=== PATIENT | male | born 1940 | race Caucasian/White ===

== ENCOUNTER 2024-07-20 23:41 | Inpatient (IN) | payer OTHER, SELFPAY ==
[2024-07-20 21:27] VITALS: BP 126/58
[2024-07-20 21:42] LABS: % Basophils 0.5 % (0-2); % Eosinophils 0.8 % (0-6); % Immature Granulocytes 0.3 % (0-0.5); % Lymphocytes 7.5 % (20.5-51.1); % Monocytes 3.3 % (1.7-9.3); % Neutrophils 87.6 % (42.2-75.2); Absolute Basophils 0.1 10^3/uL (0-0.2); Absolute Eosinophils 0.1 10^3/uL (0-0.7); Absolute Lymphocytes 0.9 10^3/uL (1.2-3.4); Absolute Monocytes 0.4 10^3/uL (0.1-0.6); Absolute Neutrophils 10.4 10^3/uL (1.4-6.5); Hematocrit 37.9 % (39.0-52.0); Hemoglobin 12.7 g/dL (13.0-18.0); Mean Corp Hgb Conc. 33.5 g/dL (33.0-37.0); Mean Corpuscular Hgb 31.7 pg (27.0-31.0); Mean Corpuscular Volume 94.5 fL (80.0-94.0); Mean Platelet Volume 9.1 fL (7.4-10.4); Nucleated Red Blood Cells % 0 % (-); Platelet Count 252 10^3/uL (130-400); Red Blood Cell Count 4.01 10^6/uL (4.70-6.10); Red Cell Dist. Width 13.4 % (11.5-14.5); Urine Albumin 3+ (Neg - Trace); Urine Bilirubin Negative (Negative); Urine Character Cloudy (Clear); Urine Color Yellow; Urine Glucose Negative (Negative); Urine Ketone Negative (Negative); Urine Leukocyte 3+ (Negative); Urine Nitrite Positive (Negative); Urine Occult Blood 4+ (Negative); Urine Urobilinogen Negative (Neg - 1+); White Blood Cell Count 11.9 10^3/uL (4.8-10.8)
[2024-07-20 21:49] LABS: Urine Squamous Cell 0-2 /LPF (Few)
[2024-07-20 21:50] LABS: Urine Bacteria Many (Negative); Urine White Cell 80-90 /HPF (0-5)
[2024-07-20] MEDS: TYLENOL/FEVERALL 650 MG RECTAL (21:52)
[2024-07-20 21:55] LABS: Lactic Acid 1.5 mmol/L (0.7-2.0)
[2024-07-20 21:56] LABS: COVID-19 Antigen Negative (Negative)
[2024-07-20 22:00] VITALS: BP 130/65
[2024-07-20 22:07] LABS: ALT (SGPT) 38 U/L (0-50); AST (SGOT) 43 U/L (17-59); Alkaline Phosphatase 92 U/L (38-126); Blood Urea Nitrogen 55 mg/dl (9-20); Calcium 10.6 mg/dl (8.4-10.2); Carbon Dioxide 25 mmol/L (22-30); Chloride 120 mmol/L (98-107); Glucose 165 mg/dl (70-99); Potassium 4.2 mmol/L (3.5-5.1); Sodium 155 mmol/L (135-145); Total Bilirubin 0.6 mg/dl (0.2-1.3); Total Protein 7.3 g/dl (6.3-8.2); eGFR 42.75
[2024-07-20] MEDS: NSS 1000 IV (22:10)
[2024-07-20] MEDS: ROCEPHIN 1000 MG IV (22:38)
--- NOTE | 2024-07-20 22:44 | ED.GENMED ---
History of Present Illness
General
Chief Complaint: Fever
Source: patient
Exam Limitations: none
Time Seen by Provider: 07/20/24 22:03
History of Present Illness
History of Present Illness:
84-year-old male from nursing facility who states the patient was found to have a fever and to be less responsive than usual. Usually he will respond to verbal stimuli but they were forced to use painful stimuli today. He has a history of dementia
and cannot provide any valuable history. Noted to have a temperature of 102.7 on arrival.
Phy Exam
Physical Exam
Physical Exam:
General: No acute respiratory distress
HEENT normocephalic mucosa dry
Heart: Regular rate and rhythm
Lungs: Clear no obvious wheeze
Abdomen soft nontender
Extremities: No cyanosis
Or edema
Course
Orders/Labs/Results
Orders:
Orders
07/20/24 21:31
Electrocardiogram (*1) Urgent
Reason for Study: Other
Other Reason for Exam: fever
EKG- Treatment ONCE
07/20/24 21:34
COVID-19 Antigen Urgent
Source: Nasal Swab
Complete Blood Count/With Diff Urgent
Comprehensive Metabolic Panel Urgent
Lactic Acid Urgent
Urinalysis Reflex To Culture Urgent
Date Specimen was Collected: 07/20/24
Time Specimen was Collected: 21:31
Urine Microscopic Reflex Cult Urgent
Blood Culture Urgent
SHAY Source: Blood/Venous
Specimen Description:
Influenza A+B Rapid Molecular Urgent
SHAY Source: Nasal Swab
Specimen Description:
Urine Culture Urgent
SHAY Source: U
Specimen Description:
Date Specimen was Collected: 07/20/24
Time Specimen was Collected: 21:31
07/20/24 21:45
Blood Culture Urgent
SHAY Source: Blood/Venous
Specimen Description:
07/20/24 21:51
Acetaminophen [Tylenol/Feverall] 650 mg .ROUTE .STK-MED ONE
07/20/24 21:52
Acetaminophen [Tylenol/Feverall] 650 mg RECTAL NOW STA
07/20/24 22:08
0.9% Sodium Chloride 1000 ml [Nss] 1,000 ml IV BOLUS
CR Chest Portable - 1 View Urgent
Comment:
Reason For Exam: fever
Reason Study Needs to be Portable: Patient Unstable
07/20/24 22:29
CefTRIAXone [Rocephin] 1,000 mg IV NOW STA
Abnormal Lab Results
07/20/24
21:34
WBC 11.9 H 10^3/uL
(4.8-10.8)
RBC 4.01 L 10^6/uL
(4.70-6.10)
Hgb 12.7 L g/dL
(13.0-18.0)
Hct 37.9 L %
(39.0-52.0)
MCV 94.5 H fL
(80.0-94.0)
MCH 31.7 H pg
(27.0-31.0)
Absolute Neuts (auto) 10.4 H 10^3/uL
(1.4-6.5)
Absolute Lymphs (auto) 0.9 L 10^3/uL
(1.2-3.4)
Neutrophils % 87.6 H %
(42.2-75.2)
Lymphocytes % 7.5 L %
(20.5-51.1)
Sodium 155 H mmol/L
(135-145)
Chloride 120 H mmol/L
(98-107)
BUN 55 H mg/dl
(9-20)
Creatinine 1.6 H mg/dL
(0.7-1.3)
Glucose 165 H mg/dl
(70-99)
Calcium 10.6 H mg/dl
(8.4-10.2)
Ur Occult Blood Reflex 4+ A
(Negative)
Urine Nitrite (Reflex) Positive A
(Negative)
Leukocyte Esterase Rfl 3+ A
(Negative)
Urine RBC 3-6 A /HPF
(0-2)
Urine WBC (Reflex) 80-90 A /HPF
(0-5)
Urine Bacteria (Reflex) Many A
(Negative)
Urine Albumin (Reflex) 3+ A
(Neg - Trace)
07/20/24 21:34
07/20/24 21:34
Vital Signs
Initial and Last Documented VS:
Initial Vital Signs
Temp Pulse Resp BP Pulse Ox
102.7 F H 83 16 126/58 95
07/20/24 21:27 07/20/24 21:27 07/20/24 21:27 07/20/24 21:27 07/20/24 21:27
Last Documented Vital Signs
Temp Pulse Resp BP Pulse Ox
102.7 F H 79 16 130/65 96
07/20/24 21:27 07/20/24 22:00 07/20/24 22:09 07/20/24 22:00 07/20/24 22:00
MDM/Problems Addressed
Differential Diagnosis Includes:
Fever. Check for pneumonia, COVID, flu, UTI. No localizing findings on exam.
*Critical Care Note
Total Time (30-74mins, 75-104mins- exclusive of procedures): Not Applicable
Update Note
Update Note:
Workup shows white blood cell count slightly elevated. He has a creatinine of 1.6. No priors to compare to on our system. Straight cath urine suspicious for UTI. His sodium is 155 I suspect hemoconcentration. Fluids ordered Rocephin ordered.
Will admit to hospital
ED Attending Note
-
Portions of this chart may have been created with voice recognition software.� Occasional wrong word or��sound alike� substitutions may have occurred due to the inherent limitations of voice recognition software.
Discharge Plan
Departure
Patient Disposition: Admit
Date of Disposition: 07/20/24
Time of Disposition: 22:46
Presentation/result/management discussed w/ accepting MD/DO: Hospitalist
Discharge Problem:
Acute UTI, Fever
Referrals:
Michel Aceves MD [Primary Care Provider] -
Austin Allen MD [Family Provider] -
Interventions
Interventions:
*Risk Screen - Suicide Last Done: 07/20/24 21:32
*General Assessment Last Done: 07/20/24 21:32
*Neglect/Abuse Screening Last Done: 07/20/24 21:32
*ED- Fall Risk Assessment Last Done: 07/20/24 21:32
*ED COVID-19 Vaccine History Last Done: 07/20/24 21:32
ED- Neurological Assessment Last Done: 07/20/24 21:32
ED-Skin Assessment Last Done: 07/20/24 21:32
Discharge Date and Time
Print Language: Algerian
[2024-07-20 23:00] VITALS: BP 133/58
--- NOTE | 2024-07-20 23:21 | HPS.HSE ---
Family Physician
-
Family Physician: Austin Allen MD
Chief Complaint
-
Fever
History of Present Illness
This is a n 84-year-old male with history of dementia, coming in from [facility] where patient was found to have a fever and to be less responsive than usual.
Usually he will respond to verbal stimuli but they were forced to use painful stimuli today. Noted to have a temperature of 102.7 on arrival.
Patient unable to provide any history. He is lethargic and hypoactive. Reacts to painful stimuli and loud voice only.
Here in the emergency department he was febrile to 102.7, blood pressure was 130/65 with a pulse of 79 satting 96% on room air. Chest x-ray was clear. Lactic acid was negative. He had a white count of 11.9 hemoglobin of 12.7 and platelet of 252.
Electrolytes were notable for a sodium of 155 and chloride of 128 otherwise unremarkable. BUN and creatinine were elevated at 55 and 1.6 respectively. Glucose was normal. LFTs were unremarkable. UA was markedly positive.
Medical History
Past Medical History
Past Medical History: Reports Dementia
Past Surgical History: Reports Other
Social History
Unable to obtain full social history at this time due to: Dementia
Family History
Family History: Not pertinent
Allergies / Home Medications
Allergies reflects when Allergies were last updated in [employer].
Home Medications with original date entered in [employer]
Allergy/Medication List:
Allergies
Allergy/AdvReac Type Severity Reaction Status Date / Time
No Known Allergies Allergy Unverified 07/20/24 21:47
Home Medications
acetaminophen 325 mg tablet 650 mg PO Q4H PRN temp >100.4 07/20/24
aspirin 81 mg tablet,delayed release 81 mg PO DAILY 07/20/24
bisacodyl 10 mg rectal suppository 10 mg WI DAILY PRN if no result from MOM 07/20/24
buspirone 10 mg tablet 10 mg PO TID 07/20/24
carvedilol 3.125 mg tablet 3.125 mg PO BID 07/20/24
clopidogrel 75 mg tablet (Plavix) 75 mg PO DAILY 07/20/24
cyanocobalamin (vitamin B-12) 1,000 mcg tablet 1,000 mcg PO DAILY 07/20/24
donepezil 10 mg tablet 10 mg PO HS 07/20/24
famotidine 20 mg tablet 20 mg PO DAILY 07/20/24
losartan 25 mg tablet 25 mg PO DAILY 07/20/24
magnesium hydroxide 400 mg/5 mL oral suspension (Milk of Magnesia) 30 ml PO HS PRN if no BM in 3 days 07/20/24
memantine 5 mg tablet 5 mg PO BID 07/20/24
mirtazapine 7.5 mg tablet 7.5 mg PO HS 07/20/24
Review of Systems
-
Unable to obtain full review of systems at this time due to: Dementia
Physical Exam
Vital Signs
Vital Signs
Temp Pulse Resp BP Pulse Ox
102.7 F H 79 16 130/65 96
07/20/24 21:27 07/20/24 22:00 07/20/24 22:09 07/20/24 22:00 07/20/24 22:00
Physical Exam
General: No Apparent Distress
HEENT: NormoCephalic, Anicteric, Atraumatic and PERRLA (could not assess accomodation)
Respiratory: Clear
Cardiac: S1/S2 and Regular Rhythm
Breast: Deferred by me
GI: Soft, Non Tender and Non Distended
Rectal: Deferred by Provider
Genito-urinary: Deferred by me
Musculoskeletal: No Clubbing, No Cyanosis and No Edema
Skin: Warm
Neuro: Other (withdraws to painful stimuli and also to loud voice. Otherwise not-interactive. )
Hematologic/Lymphatic: No Lymphadenopathy
Laboratory Results
-
07/20/24 21:34
07/20/24 21:34
Laboratory Results
Lactic Acid 1.5 mmol/L (0.7-2.0) 07/20/24 21:34
Total Bilirubin 0.6 mg/dl (0.2-1.3) 07/20/24 21:34
AST 43 U/L (17-59) 07/20/24 21:34
ALT 38 U/L (0-50) 07/20/24 21:34
Alkaline Phosphatase 92 U/L (38-126) 07/20/24 21:34
Data Reviewed
-
Diagnostic Radiology: Image Personally Visualized and interpreted
Lab Data: Labs Reviewed by me
Old Records: Reviewed
Impression/Plan
-
IMPRESSION:
84 y.o with dementia presenting with fever and decreased MS (usually responds to voice but now only to painful stimuli). Fever to 102 and markedly + u/a. Dehydrated with na 155, Cr 1.6 and BUN 55. chest Xray looks clear. Sepsis without shock.
PLAN:
1. complicated uti with sepsis
- admit to med/surg
- blood cultures
- urine cultures
- IV ceftriaxone for now
- NPO for now except meds as tolerated
- cxr clear, will get ct a/p w/o contrast to rule out urinary stones/obstruction
2. Hypernatremia - Na 155, C 120. Free water deficit ~ 2 L (to Na 145), also quite hypovolemic. Suspect secondary to free water losses from dehydration and no access.
- s/p 1 L NS
- will continue with D5 1/2 NS at 150 ml/hr
- repeat Na in 6 hours
3. KAITLIN
- IV fluids as above
- holding losartan
4. CAD - will continue meds when orally able to tolerate
- continue aspirin/plvix
- continue carvedilol
5. Advanced dementia - continue meds when orally tolerated
- continue memantine, donepizil
- hold buspiron for now
- hold mirtazepine
DVT PPX - heparin sq
Code status - DNR
[2024-07-21] VITALS (11 sets, daily range): BP systolic 114–172; BP diastolic 57–90; BMI 17.9
[2024-07-21] MEDS: D5/0.45%NACL 1000 IV ×2 (00:39→14:56)
[2024-07-21] MEDS: FLUSH (NSS) 1 FLUSH IV (00:44)
[2024-07-21] MEDS: HEPARIN 5000 UNITS SC ×3 (00:48→16:46)
[2024-07-21] MEDS: FLEET MINERAL OIL ENEMA 133 ML RECTAL ×2 (01:06→11:55)
[2024-07-21] MEDS: TYLENOL/FEVERALL 650 MG RECTAL ×3 (03:37→22:48)
[2024-07-21 06:33] LABS: Calcium 9.4 mg/dl (8.4-10.2); Carbon Dioxide 25 mmol/L (22-30); Chloride 120 mmol/L (98-107); Glucose 224 mg/dl (70-99); Potassium 3.8 mmol/L (3.5-5.1); Sodium 154 mmol/L (135-145)
[2024-07-21 06:40] LABS: Hematocrit 29.7 % (39.0-52.0); Hemoglobin 9.8 g/dL (13.0-18.0); Mean Corpuscular Hgb 31.6 pg (27.0-31.0); Mean Corpuscular Volume 95.8 fL (80.0-94.0); Mean Platelet Volume 9.6 fL (7.4-10.4); Platelet Count 196 10^3/uL (130-400); Red Cell Dist. Width 13.5 % (11.5-14.5); White Blood Cell Count 10.1 10^3/uL (4.8-10.8)
[2024-07-21 06:45] LABS: Blood Urea Nitrogen 49 mg/dl (9-20); eGFR 50.18
[2024-07-21] MEDS: D5/0.45%NACL IV (07:56)
--- NOTE | 2024-07-21 08:11 | W.PN.HOSP.TC ---
Today's Communication/Plan
-
zosyn
IVF
enema
[employer]IVER
Assessment / Plan
Assessment / Plan
84yo M with advanced dementia, poorly verbal on baseline, CAD, HTN, insomnia brought from SNF with fever and lethargy, found stercoral colitis, LLL pneumonia and possible UTI
A/P:
#Fever, cannot reliably deferentiate betqween stercoral colitis, LLL CAP or UTI due to patient poorly verbal on baseline with advanced unspecified dementia, most likely sepsis on admission
COVID-19, Influenza PCR neg
check legionella and S.pmeumonia urinary Ag
Bcx pending
Ucx pending
Sputum Cx if possible
Zosyn
[employer] TR[employer]IVER
#Hypernatremia
#KAITLIN
most likely 2/2 dehydration
D5W and follow BMP
#Anemia
follow Hgb
Check stool for occult blood
anemia w/u
#Essential HTN
hold losartan with KAITLIN
#Constipation
most likely 2/2 dehydration
IVF
enema
#Non-obstructing nephrolithiasis
hydrate
DVT ppx hep
DNR/DNI as per admission paperwork
I have spent at least 55min reviewing chart, test results and providing direct patient care
Anticipated Discharge: > 48 hours
Subjective/Interval History
-
Date of Service: July 21, 2024
Objective Data
-
Labs:
Laboratory Results
07/20/24 07/21/24
21:34 05:42
WBC 11.9 H 10.1
Hgb 12.7 L 9.8 L D
Hct 37.9 L 29.7 L
Plt Count 252 196 D
Sodium 155 H 154 H
Potassium 4.2 3.8
Chloride 120 H 120 H
Carbon Dioxide 25 25
BUN 55 H 49 H
Creatinine 1.6 H 1.4 H
Glucose 165 H 224 H
Calcium 10.6 H 9.4
Total Bilirubin 0.6
AST 43
ALT 38
Alkaline Phosphatase 92
Vital Signs:
Vital Signs
Temp Pulse Resp BP Pulse Ox
100.3 F 73 16 129/65 98
07/21/24 01:18 07/21/24 01:30 07/21/24 02:18 07/21/24 05:00 07/21/24 07:00
Review of Systems
-
Unable to obtain full review of systems at this time due to: Dementia
Physical Exam
-
General: No Apparent Distress
Respiratory: Clear to Auscultation
Cardiac: Regular Rhythm
GI: Soft, Nontender and Nondistended
Musculoskeletal: No Clubbing, No Cyanosis and No Edema
Neuro: Awake, Alert and Other (mostly nonverbal. Responds to verbal stimuli)
Psych: Calm
[2024-07-21 08:14] LABS: Reticulocyte Count 0.8 % (0.4-2.8)
--- NOTE | 2024-07-21 08:25 | PTOTSP ---
Speech Language Pathology
Pt seen for cognitive-linguistic evaluation given concern for L facial droop. Severe cognitive-linguistic deficits noted. Pt nonverbal during evaluation with no attempts to answer questions. Following evaluation, RN notified SKI PATROL that was at
bedside and facial droop is baseline from CVA in the past. Therefore, will follow for dysphagia tx only.
Pt also seen for clinical bedside swallow evaluation. P.O. trials of puree and thin liquids provided. Poor prefeeding skills noted. Labial leakage on L noted with liquids. Attempted sip from straw, but pt biting down on straw. Provided tsp of
puree. Multiple swallows noted, most likely indicative of pharyngeal residue. Oral suctioning completed with diffuse oral residue suctioned by SKI PATROL.
Current alertness level and mentation do not support safe P.O. intake.
Recommend:
(1) Strict NPO
(2) Non-oral meds
(3) Oral care 4x/day with suctioning as needed
(4) Not appropriate for Aspiration Risk Hydration Protocol (ARHP)
(5) SKI PATROL to continue to follow
--- NOTE | 2024-07-21 08:35 | PHANOTE ---
Addendum entered by Theodora Montague 07/21/24 10:30:
CALLED [facility] FLOOR NURSE STATED SHE WAS TOO BUSY TO FAX HIS MEDICATION LIST OVER AND STATED HE CAME WITH THE PACKET BUT IT MISSING PAGES, NURSE STATED SHE WILL TRY IN AN HOUR TO FAX MEDICATION LIST
Original Note:
med rec note- called [facility] at [phone], nurse line was busy but left message with desk pens assembler to fax med list over for patient
[2024-07-21 08:51] LABS: Iron 27 ug/dl (49-181)
[2024-07-21 09:00] LABS: Percent Saturation 13 % (20-50); Total Iron Binding Capacity 207 ug/dl (261-462)
[2024-07-21 09:36] LABS: Ferritin 95.2 ng/ml (17.9-464.0)
--- NOTE | 2024-07-21 10:01 | CM ---
CM met with spouse/bedside
Pt is Salvadorean speak and with dementia
Pt is a STR resident from [facility]- newly admitted on 07/18 from [facility]
Prior to [facility], pt was residing at home with his spouse in [place] in a 2SH with 3 LUIS and full flight to second floor
Spouse denied use of DMEs in the home and pt ambulated and performed pers care with spouse assist
Pt attended adult day care 3x weekly
Arrangements have been made for pt to transition to LTC at SNF
Call with [facility] nursing
Pt has been non-verbal since admission there and total care
Return SNF referral on dc
If skillable needs, pt will require [employer] auth
Discharge Disposition- return to [facility], likely will need auth
[2024-07-21 10:07] LABS: Folate 4.2 ng/ml (2.76-20); Vitamin B12 739 pg/ml (239-931)
[2024-07-21] MEDS: PLAVIX PO (10:12)
[2024-07-21] MEDS: COREG PO ×2 (10:12→20:41)
[2024-07-21] MEDS: NAMENDA PO ×2 (10:12→20:41)
[2024-07-21] MEDS: ZOSYN 50 IV ×3 (10:15→20:40)
[2024-07-21] MEDS: D5W 1000 IV (10:16)
--- NOTE | 2024-07-21 11:28 | PTCARENOTE ---
Brought to this RN's attention by LAP CUTTER TRUER OPERATOR that patient appeared to have flattened nasolabial fold on left side. Shortly after, is at bedside, this RN questioned facial asymmetry. reports facial asymmetry since stroke in 2010 and appears
unchanged from baseline. Dr. De Souza and LAP CUTTER TRUER OPERATOR updated on finding.
[2024-07-21 13:48] LABS: LDH 256 U/L (120-246)
--- NOTE | 2024-07-21 15:13 | PTCARENOTE ---
Attempted med rec with son. Son reports [facility] handles all medications, he does not know pt's med list. Call placed to [facility], said they will fax med list to [facility].
[2024-07-21] MEDS: ARICEPT PO (22:38)
[2024-07-22] MEDS: HEPARIN 5000 UNITS SC ×4 (01:05→23:16)
[2024-07-22] MEDS: ZOSYN 50 IV ×4 (01:05→20:03)
[2024-07-22 01:55] VITALS: BP 150/58
[2024-07-22] MEDS: D5W 1000 IV ×2 (04:39→16:12)
[2024-07-22 07:11] LABS: % Basophils 0.3 % (0-2); % Eosinophils 0.6 % (0-6); % Immature Granulocytes 0.6 % (0-0.5); % Lymphocytes 8.9 % (20.5-51.1); % Monocytes 5.4 % (1.7-9.3); % Neutrophils 84.2 % (42.2-75.2); Absolute Lymphocytes 0.6 10^3/uL (1.2-3.4); Absolute Monocytes 0.4 10^3/uL (0.1-0.6); Absolute Neutrophils 5.6 10^3/uL (1.4-6.5); Hematocrit 27.8 % (39.0-52.0); Hemoglobin 9.4 g/dL (13.0-18.0); Mean Corp Hgb Conc. 33.8 g/dL (33.0-37.0); Mean Corpuscular Hgb 31.9 pg (27.0-31.0); Mean Corpuscular Volume 94.2 fL (80.0-94.0); Mean Platelet Volume 9.6 fL (7.4-10.4); Nucleated Red Blood Cells % 0 % (-); Platelet Count 195 10^3/uL (130-400); Red Blood Cell Count 2.95 10^6/uL (4.70-6.10); Red Cell Dist. Width 13.3 % (11.5-14.5); White Blood Cell Count 6.6 10^3/uL (4.8-10.8)
[2024-07-22 07:23] VITALS: BP 134/67
[2024-07-22] MEDS: COREG PO ×2 (08:50→20:03)
[2024-07-22] MEDS: PLAVIX PO (08:50)
[2024-07-22] MEDS: NAMENDA PO ×2 (08:50→20:03)
[2024-07-22] MEDS: TYLENOL/FEVERALL 650 MG RECTAL ×2 (08:52→22:27)
[2024-07-22] MEDS: FLEET MINERAL OIL ENEMA 133 ML RECTAL (09:12)
--- NOTE | 2024-07-22 09:29 | PHA.VAN.IN ---
Assessment
- Assessment
Renal Function: Unknown baseline (1.2)
Maximum Temperature: 102.2
Concomitant Antimicrobials: Piperacillin/Tazobactam
Plan
- Plan
Initial / Loading Dose: Vanco 1500mg loading dose administration 07/22/24 1031
Maintenance Regimen: Dose by level
Monitoring: R level 07/23/24 0600
Pharmacokinetics Vancomycin I
- -
Patient Age: 84
Patient Sex: Male
Vancomycin Day #: 1
Indication: Other
Requesting Provider: Ap
Pertinent Antimicrobial Allergies:
No known drug allergies
Height / Weight:
Height 5 ft 6 in
Actual Weight 50.258 kg
- Vital Signs / Lab Results
Temp Pulse Resp BP Pulse Ox
101.0 F H 71 15 134/67 93
07/22/24 07:23 07/22/24 07:23 07/22/24 07:23 07/22/24 07:23 07/22/24 07:23
Lab Results - Hematology
07/20/24 07/21/24 07/22/24
21:34 05:42 06:37
WBC 11.9 H 10.1 6.6
Lab Results - Chemistry
07/20/24 07/21/24
21:34 05:42
BUN 55 H 49 H
Creatinine 1.6 H 1.4 H
Albumin 4.0
07/20/24
21:34
Lactic Acid 1.5
Lab Results - Urine
07/20/24
21:34
Urine Nitrite (Reflex) Positive A
Leukocyte Esterase Rfl 3+ A
Urine WBC (Reflex) 80-90 A
Ur Squamous Epith Cells 0-2
Urine Bacteria (Reflex) Many A
Microbiology Results
07/20/24 21:45 Blood Culture - Preliminary
Blood/Venous No Growth in 24 hours- Final report to follow
07/20/24 21:34 Blood Culture - Preliminary
Blood/Venous No Growth in 24 hours- Final report to follow
07/21/24 21:34 Legionella Urinary Antigen - Final
Urine Negative for Legionella pneumophila Serogroup 1 antigen.
A negative result does not rule out the possiblity of
Legionella infection due to other serogroups or species of
Legionella. Clinical correlation is recommended.
Streptococcus pneumoniae Antigen (M - Final
Negative for Streptococcus pneumoniae antigen.
A negative result does not exclude infection with
Streptococcus pneumoniae. Clinical correlation is
recommended.
07/20/24 21:34 Influenza Types A & B (BELÉN) - Final
Nasal Swab Negative for Influenza A & B, NAAT
Negative results must be combined with clinical observations
and patient history.
Nucleic Acid Amplification test (NAAT)performed on the
[employer] platform.
[2024-07-22 09:47] LABS: ALT (SGPT) 39 U/L (0-50); AST (SGOT) 37 U/L (17-59); Albumin 3.5 g/dl (3.5-5.0); Alkaline Phosphatase 87 U/L (38-126); Blood Urea Nitrogen 34 mg/dl (9-20); Carbon Dioxide 21 mmol/L (22-30); Chloride 115 mmol/L (98-107); Estimated Creatinine Clearance 27 ml/min; Glucose 166 mg/dl (70-99); Potassium 3.6 mmol/L (3.5-5.1); Sodium 147 mmol/L (135-145); Total Bilirubin 0.5 mg/dl (0.2-1.3); Total Protein 6.2 g/dl (6.3-8.2); eGFR 46.19
--- NOTE | 2024-07-22 10:25 | W.PN.HOSP.TC ---
Today's Communication/Plan
-
add Vanco with persistent fevers
Assessment / Plan
Assessment / Plan
84yo M with advanced dementia, poorly verbal on baseline, CAD, HTN, insomnia brought from SNF with fever and lethargy, found stercoral colitis, LLL pneumonia and possible UTI
A/P:
#Fever, cannot reliably deferentiate between stercoral colitis, LLL CAP or UTI due to patient poorly verbal on baseline with advanced unspecified dementia, most likely sepsis on admission
COVID-19, Influenza PCR neg
#HEmaturia 2/2 UTI
follow up eventually with Urology, depending on GOC
legionella and S.pmeumonia urinary Ag neg
No hydronephrosis on CT
Bcx pending
Ucx pending
Sputum Cx if possible
Zosyn
SALES SUPPORT ENGINEER
Add Vanco
#Dysphagia
2/2 acute disease
NPO as per SALES SUPPORT ENGINEER
#Acute metabolic encephalopathy
As per -patient was mostly lethargic days before d/c from the previous hospital
at this time with no significant improvement after hydration and initial Abx - head CT, will consider MRI brain
check TSH and cortisol AM
#Hypernatremia
#KAITLIN
improving
most likely 2/2 dehydration
D5W and follow BMP
#Anemia, NOREEN
follow Hgb
iron IV
Check stool for occult blood
brown stool
#Essential HTN
hold losartan with KAITLIN
#Constipation
most likely 2/2 dehydration
IVF
enema
#Non-obstructing nephrolithiasis
hydrate
DVT ppx hep
DNR/DNI as per
I have spent at least 58min reviewing chart, test results and providing direct patient care
Anticipated Discharge: > 48 hours
Subjective/Interval History
-
Date of Service: July 22, 2024
Objective Data
-
Labs:
Laboratory Results
07/22/24
06:37
WBC 6.6
Hgb 9.4 L
Hct 27.8 L
Plt Count 195
Sodium 147 H
Potassium 3.6
Chloride 115 H
Carbon Dioxide 21 L
BUN 34 H
Creatinine 1.5 H
Glucose 166 H
Calcium 9.0
Total Bilirubin 0.5
AST 37
ALT 39
Alkaline Phosphatase 87
Vital Signs:
Vital Signs
Temp Pulse Resp BP Pulse Ox
101.0 F H 71 15 134/67 93
07/22/24 07:23 07/22/24 07:23 07/22/24 07:23 07/22/24 07:23 07/22/24 07:23
I&O
07/21/24 07/22/24 07/23/24
06:59 06:59 06:59
Intake Total 0 / 0
Balance 0 / 0
Review of Systems
-
Unable to obtain full review of systems at this time due to: Acuity and Patient Non-verbal
Physical Exam
-
General: No Apparent Distress
Respiratory: Clear to Auscultation
Cardiac: Regular Rhythm
GI: Soft, Nontender and Nondistended
Musculoskeletal: No Clubbing, No Cyanosis and No Edema
Neuro: Other (lethargic); Negative AO x 3
Psych: Calm
[2024-07-22] MEDS: VANCOCIN 530 MG IV (10:31)
--- NOTE | 2024-07-22 11:27 | CM ---
Patient from [facility]
[place] speaking, h/o dementia
On IV antibiotic
Referral in careport to return
Arrangements have been made for pt to transition to LTC at [facility]
Plan: return to [facility], likely will need auth
[2024-07-22 11:40] VITALS: BP 111/59; PULSE 66; O2SAT 96
[2024-07-22 11:41] VITALS: BP 111/59; PULSE 66; O2SAT 96
[2024-07-22] MEDS: ASPIRIN 300 MG RECTAL (12:50)
[2024-07-22 12:58] VITALS: BMI 17.9
[2024-07-22] MEDS: FERRLECIT 110 MG IV (14:22)
[2024-07-22 15:00] VITALS: BP 142/58
[2024-07-22] MEDS: ARICEPT PO (21:17)
[2024-07-22 22:42] VITALS: BP 150/60
[2024-07-23] MEDS: ZOSYN 50 IV ×4 (02:20→20:14)
[2024-07-23] MEDS: COREG PO ×2 (06:51→20:13)
[2024-07-23] MEDS: NAMENDA PO ×2 (06:51→20:13)
[2024-07-23] MEDS: PLAVIX PO (06:52)
[2024-07-23 07:20] VITALS: BP 123/61
[2024-07-23] MEDS: D5W 1000 IV (08:05)
[2024-07-23] MEDS: ASPIRIN 300 MG RECTAL (08:06)
[2024-07-23] MEDS: HEPARIN 5000 UNITS SC ×2 (08:07→17:09)
[2024-07-23 08:20] LABS: ALT (SGPT) 33 U/L (0-50); AST (SGOT) 41 U/L (17-59); Albumin 3.4 g/dl (3.5-5.0); Alkaline Phosphatase 81 U/L (38-126); Blood Urea Nitrogen 27 mg/dl (9-20); Calcium 8.6 mg/dl (8.4-10.2); Carbon Dioxide 19 mmol/L (22-30); Chloride 110 mmol/L (98-107); Estimated Creatinine Clearance 27 ml/min; Glucose 125 mg/dl (70-99); Potassium 3.1 mmol/L (3.5-5.1); Sodium 142 mmol/L (135-145); Total Bilirubin 0.6 mg/dl (0.2-1.3); Total Protein 6.2 g/dl (6.3-8.2); eGFR 46.19
[2024-07-23 08:22] LABS: Vancomycin Random 9.9 ug/ml
[2024-07-23 08:33] LABS: Procalcitonin 0.07 ng/ml (0.0-0.25)
[2024-07-23 08:47] LABS: Cortisol, Random 19.7 ug/dl
[2024-07-23 09:01] LABS: Hematocrit 28.1 % (39.0-52.0); Hemoglobin 9.7 g/dL (13.0-18.0); Mean Corp Hgb Conc. 34.5 g/dL (33.0-37.0); Mean Corpuscular Hgb 31.5 pg (27.0-31.0); Mean Corpuscular Volume 91.2 fL (80.0-94.0); Mean Platelet Volume 10.1 fL (7.4-10.4); Platelet Count 190 10^3/uL (130-400); Red Blood Cell Count 3.08 10^6/uL (4.70-6.10); Red Cell Dist. Width 13.2 % (11.5-14.5); White Blood Cell Count 6.1 10^3/uL (4.8-10.8)
[2024-07-23] MEDS: KCL 270 MEQ IV (09:02)
--- NOTE | 2024-07-23 09:22 | PHA.VAN.FU ---
Vancomycin Assessment / Plan
- Assessment
Renal Function: Stable (1.5)
WBC's are: WNL (6.1)
In the past 24 hrs, patient has been: Febrile (101)
Concomitant Antimicrobials: Piperacillin/Tazobactam
- Assessment - Therapeutic Drug Monitoring
Random Level: 9.9 ~21hrs after 1500mg loading dose
- Dosing Plan
Dosing by Level: Re-dose today
Dosing Comments: Vanco 750mg x1
- Monitoring Plan
Random Level: 07/24/24 0600
- Follow Up
Pharmacy will continue to follow.
Vancomycin Follow UP
- -
Patient Age: 84
Patient Sex: Male
Vancomycin Day #: 2
Indication: Other
Requesting Provider: Ap
Pertinent Antimicrobial Allergies:
No known drug allergies
Height / Weight:
Height 5 ft 6 in
Actual Weight 50.258 kg
- Vital Signs / Lab Results
Temp Pulse Resp BP Pulse Ox
97.5 F 64 16 123/61 98
07/23/24 07:20 07/23/24 07:20 07/23/24 07:20 07/23/24 07:20 07/23/24 07:20
Lab Results - Hematology
07/20/24 07/21/24 07/22/24
21:34 05:42 06:37
WBC 11.9 H 10.1 6.6
07/23/24
07:32
WBC 6.1
Lab Results - Chemistry
07/20/24 07/21/24 07/22/24
21:34 05:42 06:37
BUN 55 H 49 H 34 H
Creatinine 1.6 H 1.4 H 1.5 H
Estimated Creat Clear 27
Albumin 4.0 3.5
07/23/24
07:32
BUN 27 H
Creatinine 1.5 H
Estimated Creat Clear 27
Albumin 3.4 L
07/20/24
21:34
Lactic Acid 1.5
Microbiology Results
07/20/24 21:45 Blood Culture - Preliminary
Blood/Venous No Growth in 48 hours- Final report to follow
07/20/24 21:34 Blood Culture - Preliminary
Blood/Venous No Growth in 48 hours- Final report to follow
07/20/24 21:34 Urine Culture - Final
Urine
07/21/24 21:34 Legionella Urinary Antigen - Final
Urine Negative for Legionella pneumophila Serogroup 1 antigen.
A negative result does not rule out the possiblity of
Legionella infection due to other serogroups or species of
Legionella. Clinical correlation is recommended.
Streptococcus pneumoniae Antigen (M - Final
Negative for Streptococcus pneumoniae antigen.
A negative result does not exclude infection with
Streptococcus pneumoniae. Clinical correlation is
recommended.
Therapeutic Drug Monitoring
Random Vancomycin 9.9 ug/ml 07/23/24 07:32
[2024-07-23] MEDS: FLEET MINERAL OIL ENEMA 133 ML RECTAL (09:59)
--- NOTE | 2024-07-23 10:14 | CM ---
Patient seen at bedside along with Keerthi
from [facility] to transition to LTC
Referral in careport
Plan: return to [facility], likely will need auth
--- NOTE | 2024-07-23 10:44 | W.PN.HOSP.TC ---
Today's Communication/Plan
-
Procal low, patient more awake, some cough with sputum persists - keep NPO with IVF and do chest CT
MRI brain
replete potassium
Assessment / Plan
Assessment / Plan
84yo M with advanced dementia, poorly verbal on baseline, CAD, HTN, insomnia brought from SNF with fever and lethargy, found stercoral colitis, LLL pneumonia and possible UTI
As per patient - he was similarly lethargic during his last week admission to another hospital and then much improved on the day prior to d/c. Then next day developed lethargy again when in rehab. connecting his lethargy with risperidone
that was started in another hospital
A/P:
#Fever, cannot reliably differentiate between stercoral colitis, LLL CAP or UTI due to patient poorly verbal on baseline with advanced unspecified dementia, most likely sepsis on admission
COVID-19, Influenza PCR neg
#Hematuria 2/2 UTI
follow up eventually with Urology, depending on GOC
legionella and S.pneumonia urinary Ag neg
No hydronephrosis on CT
Bcx NTD
Ucx neg
Sputum Cx if possible
Vanco/Zosyn
FURNITURE DECALS INSPECTOR
#Dysphagia
2/2 acute disease
NPO as per FURNITURE DECALS INSPECTOR
#Acute metabolic encephalopathy on dementia, unspecified
As per -patient was mostly lethargic days before d/c from the previous hospital
TSH and cortisol AM WNL
CT head without acute findings
MRI brain
much improving mentation without psychiatric meds - will stop upon d/c
#Hypernatremia
#KAITLIN
improving
most likely 2/2 dehydration
D5W and follow BMP
#Anemia, NOREEN
follow Hgb
iron IV
Check stool for occult blood
brown stool
#Essential HTN
hold losartan with KAITLIN
#Constipation
most likely 2/2 dehydration
IVF
enema
#Non-obstructing nephrolithiasis
hydrate
DVT ppx hep
DNR/DNI as per
I have spent at least 38min reviewing chart, test results and providing direct patient care
Anticipated Discharge: > 48 hours
Subjective/Interval History
-
Date of Service: July 23, 2024
Objective Data
-
Labs:
Laboratory Results
07/23/24
07:32
WBC 6.1
Hgb 9.7 L
Hct 28.1 L
Plt Count 190
Sodium 142
Potassium 3.1 L
Chloride 110 H
Carbon Dioxide 19 L
BUN 27 H
Creatinine 1.5 H
Glucose 125 H
Calcium 8.6
Total Bilirubin 0.6
AST 41
ALT 33
Alkaline Phosphatase 81
Vital Signs:
Vital Signs
Temp Pulse Resp BP Pulse Ox
97.5 F 64 16 123/61 98
07/23/24 07:20 07/23/24 07:20 07/23/24 07:20 07/23/24 07:20 07/23/24 07:20
I&O
07/22/24 07/23/24 07/24/24
06:59 06:59 06:59
Intake Total 0 / 0
Output Total 750 / 750
Balance 0 / 0 -750 / -750
Review of Systems
-
Unable to obtain full review of systems at this time due to: Dementia
Physical Exam
-
General: No Apparent Distress
Respiratory: Rales
GI: Soft
Musculoskeletal: No Clubbing, No Cyanosis and No Edema
Neuro: Awake and Alert
Psych: Calm
[2024-07-23 11:36] LABS: % Basophils 0.5 % (0-2); % Eosinophils 0.2 % (0-6); % Immature Granulocytes 0.3 % (0-0.5); % Lymphocytes 17.7 % (20.5-51.1); % Monocytes 4.9 % (1.7-9.3); % Neutrophils 76.4 % (42.2-75.2); Absolute Lymphocytes 1.1 10^3/uL (1.2-3.4); Absolute Monocytes 0.3 10^3/uL (0.1-0.6); Absolute Neutrophils 4.7 10^3/uL (1.4-6.5); Nucleated Red Blood Cells % 0 % (-)
[2024-07-23] MEDS: VANCOCIN 150 IV (12:14)
[2024-07-23] MEDS: FERRLECIT 110 MG IV (14:39)
[2024-07-23 14:56] VITALS: BP 154/69
[2024-07-23 17:05] VITALS: BP 111/59; PULSE 66; O2SAT 96
[2024-07-23] MEDS: ARICEPT PO (21:35)
[2024-07-23 23:27] VITALS: BP 140/63
[2024-07-24] MEDS: HEPARIN 5000 UNITS SC ×3 (00:05→16:01)
[2024-07-24] MEDS: ZOSYN 50 IV ×2 (01:59→08:22)
[2024-07-24] MEDS: D5W 1000 IV ×2 (03:42→13:29)
[2024-07-24 07:16] VITALS: BP 149/59
[2024-07-24] MEDS: COREG PO ×2 (07:16→22:21)
[2024-07-24] MEDS: NAMENDA PO ×2 (07:16→22:21)
[2024-07-24] MEDS: PLAVIX PO (07:16)
[2024-07-24 07:49] LABS: Blood Urea Nitrogen 21 mg/dl (9-20); Calcium 8.8 mg/dl (8.4-10.2); Carbon Dioxide 19 mmol/L (22-30); Chloride 110 mmol/L (98-107); Estimated Creatinine Clearance 31 ml/min; Glucose 160 mg/dl (70-99); Potassium 3.2 mmol/L (3.5-5.1); Sodium 138 mmol/L (135-145); eGFR 54.85
[2024-07-24 07:52] LABS: Vancomycin Random 10.9 ug/ml
[2024-07-24] MEDS: ASPIRIN 300 MG RECTAL (08:22)
[2024-07-24] MEDS: FLEET MINERAL OIL ENEMA 133 ML RECTAL (08:25)
--- NOTE | 2024-07-24 08:59 | PHA.VAN.FU ---
Vancomycin Assessment / Plan
- Assessment
Renal Function: SCR Decreasing
WBC's are: WNL
In the past 24 hrs, patient has been: Afebrile
Concomitant Antimicrobials: piperacillin/tazobactam
- Assessment - Therapeutic Drug Monitoring
Random Level: 10.9 - drawn ~18.5H after previous dose of 750mg
- Dosing Plan
Dosing by Level: Re-dose today (Vanc 750mg)
- Monitoring Plan
Random Level: 07/25 0600
- Follow Up
Pharmacy will continue to follow.
Vancomycin Follow UP
- -
Patient Age: 84
Patient Sex: Male
Vancomycin Day #: 3
Indication: Other
Requesting Provider: Ap
Pertinent Antimicrobial Allergies:
No known drug allergies
Height / Weight:
Height 5 ft 6 in
Actual Weight 50.258 kg
IBW in k
Pertinent Past Medical History: BMI ~18
- Vital Signs / Lab Results
Temp Pulse Resp BP Pulse Ox
98.2 F 67 17 149/59 96
07/24/24 07:16 07/24/24 07:16 07/24/24 07:16 07/24/24 07:16 07/24/24 07:16
Lab Results - Hematology
07/22/24 07/23/24
06:37 07:32
WBC 6.6 6.1
Lab Results - Chemistry
07/22/24 07/23/24 07/24/24
06:37 07:32 07:03
BUN 34 H 27 H 21 H
Creatinine 1.5 H 1.5 H 1.3
Estimated Creat Clear 27 27 31
Albumin 3.5 3.4 L
Microbiology Results
07/20/24 21:45 Blood Culture - Preliminary
Blood/Venous No Growth in 72 hours- Final report to follow
07/20/24 21:34 Blood Culture - Preliminary
Blood/Venous No Growth in 72 hours- Final report to follow
07/20/24 21:34 Urine Culture - Final
Urine
Therapeutic Drug Monitoring
Random Vancomycin 10.9 ug/ml 07/24/24 07:03
[2024-07-24] MEDS: KCL 270 MEQ IV (10:16)
--- NOTE | 2024-07-24 11:01 | STATUS ---
SITUATION:
BACKGROUND:
ASSESSMENT:
RECOMMENDATION:
--- NOTE | 2024-07-24 11:01 | CM ---
Addendum entered by Janet Kirk 07/24/24 13:36:
seen by ST today
rec pureed diet
Original Note:
Patient seen at bedside
MRI complete, CT chest complete
from [facility] to transition LTC
Plan: return to [facility], likely will need auth
[2024-07-24 11:34] VITALS: BP 135/59; BP 94/34; PULSE 67; O2SAT 94
[2024-07-24 11:35] VITALS: BP 135/59; BP 94/34; PULSE 66; O2SAT 94
[2024-07-24] MEDS: VANCOCIN 150 IV (11:40)
--- NOTE | 2024-07-24 12:08 | W.PN.HOSP.TC ---
Addendum entered and electronically signed by Mark De Souza MD 07/25/24 13:43:
#DM type 2 with unspecified complications
Accuchecks, Insulin SS, Dm diet
Original Note:
Today's Communication/Plan
-
Switch to Unasyn/DOxy
repeat AIR INTERCEPT CONTROLLER SUPERVISOR assessment as patient more awake. Discussed with bedside, that if still NPO - will have to make decision for GOC, as PEG would be dangerous (patient will certainly pull it out due to significant level of dementia) and herself
does not want it
Assessment / Plan
Assessment / Plan
84yo M with advanced dementia, poorly verbal on baseline, CAD, HTN, insomnia brought from SNF with fever and lethargy, found stercoral colitis, LLL pneumonia and possible UTI
As per patient - he was similarly lethargic during his last week admission to another hospital and then much improved on the day prior to d/c. Then next day developed lethargy again when in rehab. connecting his lethargy with risperidone
that was started in another hospital
A/P:
#Fever, cannot reliably differentiate between stercoral colitis, LLL CAP, most likely sepsis on admission
COVID-19, Influenza PCR neg
#Hematuria 2/[address] chest: Bilateral lower lobe opacification compatible with subsegmental atelectasis and tiny left pleural effusion. Cannot exclude pneumonia, particularly in the left lower lobe
follow up eventually with Urology, depending on GOC
legionella and S.pneumonia urinary Ag neg
No hydronephrosis on CT
Bcx NTD
Ucx neg
Sputum Cx if possible
Vanco/Zosyn switched to Unasyn/Doxy - to cover pneumonia and stercoral colitis
AIR INTERCEPT CONTROLLER SUPERVISOR
#Dysphagia
2/2 acute disease
NPO as per AIR INTERCEPT CONTROLLER SUPERVISOR
#Acute metabolic encephalopathy on dementia, unspecified
As per -patient was mostly lethargic days before d/c from the previous hospital
TSH and cortisol AM WNL
CT head without acute findings
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
much improving mentation without psychiatric meds - will stop upon d/c
#Hypokalemia
#Hypernatremia
#KAITLIN
Follow and replete electrolytes
improving
most likely 2/2 dehydration
D5W and follow BMP
#Anemia, NOREEN
follow Hgb
iron IV
Check stool for occult blood
brown stool
#Essential HTN
hold losartan with KAITLIN
#Constipation
most likely 2/2 dehydration
IVF
enema
#Non-obstructing nephrolithiasis
hydrate
DVT ppx hep
DNR/DNI as per
I have spent at least 38min reviewing chart, test results and providing direct patient care
Anticipated Discharge: > 48 hours
Subjective/Interval History
-
Date of Service: July 24, 2024
Objective Data
-
Labs:
Laboratory Results
07/24/24
07:03
Sodium 138
Potassium 3.2 L
Chloride 110 H
Carbon Dioxide 19 L
BUN 21 H
Creatinine 1.3
Glucose 160 H
Calcium 8.8
Vital Signs:
Vital Signs
Temp Pulse Resp BP Pulse Ox
98.7 F 67 17 149/59 96
07/24/24 10:47 07/24/24 07:16 07/24/24 07:16 07/24/24 07:16 07/24/24 07:16
I&O
07/23/24 07/24/24 07/25/24
06:59 06:59 06:59
Intake Total 900 / 900
Output Total 750 / 750 300 / 300
Balance -750 / -750 600 / 600
Review of Systems
-
Unable to obtain full review of systems at this time due to: Dementia
Physical Exam
-
Respiratory: Clear to Auscultation
Cardiac: Regular Rhythm
Musculoskeletal: No Clubbing, No Cyanosis and No Edema
Neuro: Awake and Alert
Psych: Calm
[2024-07-24] MEDS: FERRLECIT 110 MG IV (13:23)
[2024-07-24 14:51] VITALS: BP 100/53
[2024-07-24] MEDS: UNASYN IV ×2 (15:36→22:07)
[2024-07-24] MEDS: VIBRAMYCIN 260 MG IV (16:01)
--- NOTE | 2024-07-24 16:11 | PTOTSP ---
Addendum entered and electronically signed by ST Adry 07/25/24 10:34:
As of 07/25/2024
Modified to: L4 Pureed Solids, Thin Liquids via TSP. See patient care note.
Original Note:
Dysphagia Therapy
Impression: Oral/pharyngeal dysphagia related to acute on chronic factors (UTI, dementia). Patient alert w/o s/s of aspiration w/ thin and puree but w/ inconsistent retrieval/oral control w/ thin liquids and at elevated risk for
dysphagia/aspiration given dependence for assist with feeding.
Recommend:
1. L4 Pureed Solids only
2. Medications: crushed in puree if medically cleared
3. Oral care 3x daily
4. Strategies: upright to 90 degrees, 1:1 assist, small bites, slow rate, oral care post
5. Dysphagia tx f/u at the acute care level to determine if/when able to initiate liquids and if further instrumental assessment warranted
[2024-07-24] MEDS: D5W IV (17:06)
[2024-07-24] MEDS: ARICEPT PO (22:22)
[2024-07-24] MEDS: COREG 3.125 MG PO (22:49)
[2024-07-24] MEDS: NAMENDA 5 MG PO (22:50)
[2024-07-24] MEDS: ARICEPT 10 MG PO (22:50)
[2024-07-24 23:39] VITALS: BP 175/77
[2024-07-25] MEDS: HEPARIN 5000 UNITS SC ×2 (01:03→08:03)
[2024-07-25] MEDS: D5W 1000 IV (03:50)
[2024-07-25] MEDS: UNASYN IV ×4 (04:04→21:23)
[2024-07-25] MEDS: VIBRAMYCIN 260 MG IV ×2 (05:00→17:21)
[2024-07-25 07:05] VITALS: BP 186/61
[2024-07-25] MEDS: ASPIRIN 300 MG RECTAL (08:01)
[2024-07-25] MEDS: COREG 3.125 MG PO ×2 (08:02→20:09)
[2024-07-25] MEDS: PLAVIX 75 MG PO (08:04)
[2024-07-25] MEDS: PROCARDIA XL (EXTENDED RELEASE) 30 MG PO (08:04)
[2024-07-25] MEDS: NAMENDA 5 MG PO ×2 (08:05→20:09)
[2024-07-25] MEDS: FLEET MINERAL OIL ENEMA RECTAL ×2 (09:23→11:27)
[2024-07-25 11:13] LABS: % Eosinophils 0.2 % (0-6); % Immature Granulocytes 0.5 % (0-0.5); % Lymphocytes 10.2 % (20.5-51.1); % Monocytes 6.1 % (1.7-9.3); Absolute Lymphocytes 0.6 10^3/uL (1.2-3.4); Absolute Monocytes 0.4 10^3/uL (0.1-0.6); Absolute Neutrophils 4.7 10^3/uL (1.4-6.5); Hematocrit 23.9 % (39.0-52.0); Hemoglobin 8.5 g/dL (13.0-18.0); Mean Corp Hgb Conc. 35.6 g/dL (33.0-37.0); Mean Corpuscular Volume 89.8 fL (80.0-94.0); Mean Platelet Volume 9.7 fL (7.4-10.4); Nucleated Red Blood Cells % 0 % (-); Platelet Count 210 10^3/uL (130-400); Red Blood Cell Count 2.66 10^6/uL (4.70-6.10); Red Cell Dist. Width 13.1 % (11.5-14.5); White Blood Cell Count 5.7 10^3/uL (4.8-10.8)
[2024-07-25 11:36] LABS: ALT (SGPT) 32 U/L (0-50); AST (SGOT) 59 U/L (17-59); Albumin 2.8 g/dl (3.5-5.0); Alkaline Phosphatase 76 U/L (38-126); Blood Urea Nitrogen 17 mg/dl (9-20); Calcium 8.4 mg/dl (8.4-10.2); Carbon Dioxide 17 mmol/L (22-30); Chloride 110 mmol/L (98-107); Estimated Creatinine Clearance 29 ml/min; Glucose 213 mg/dl (70-99); Potassium 3.2 mmol/L (3.5-5.1); Sodium 137 mmol/L (135-145); Total Bilirubin 0.6 mg/dl (0.2-1.3); Total Protein 5.3 g/dl (6.3-8.2); eGFR 50.18
--- NOTE | 2024-07-25 11:52 | CM ---
Addendum entered by Janet Kirk 07/25/24 12:15:
per Yeimy when patient ready for dc
[facility] NPI #:[id number]
Dr. Allen
Original Note:
Patient seen at bedside
[facility] referral in [facility]
will need auth
PLAN: Return to [facility], when medically stable
Report #: [phone] Fax #: [phone]
[2024-07-25] MEDS: D5W IV (12:20)
[2024-07-25] MEDS: PROTONIX IV 40 MG IV ×2 (12:33→23:41)
[2024-07-25] MEDS: LR 1000 IV (12:33)
[2024-07-25] MEDS: NSS (PRESERVATIVE FREE) 10 ML IV ×2 (12:33→23:41)
[2024-07-25] MEDS: KCL 270 MEQ IV (12:34)
[2024-07-25 13:32] LABS: Glucose - Point of Care 151 mg/dl (70-99)
--- NOTE | 2024-07-25 13:39 | W.PN.HOSP.TC ---
Today's Communication/Plan
-
Mentation remains on baseline, patient awake and ate today, cont Abx at this time
Stool brown, but Hgb dropped - suspect hemodilution. FOBT still pending RN informed
Assessment / Plan
Assessment / Plan
84yo M with advanced dementia, poorly verbal on baseline, CAD, HTN, insomnia brought from SNF with fever and lethargy, found stercoral colitis, LLL pneumonia and possible UTI
As per patient - he was similarly lethargic during his last week admission to another hospital and then much improved on the day prior to d/c. Then next day developed lethargy again when in rehab. connecting his lethargy with risperidone
that was started in another hospital
A/P:
#Anemia, NOREEN
PPI
avoid antiplatelets and anticoag
follow Hgb
iron IV
Check stool for occult blood
brown stool
#Fever, cannot reliably differentiate between stercoral colitis, LLL CAP, most likely sepsis on admission
#Hematuria
CT chest: Bilateral lower lobe opacification compatible with subsegmental atelectasis and tiny left pleural effusion. Cannot exclude pneumonia, particularly in the left lower lobe
follow up eventually with Urology, depending on GOC
legionella and S.pneumonia urinary Ag neg
No hydronephrosis on CT
Bcx NTD
Ucx neg
Repeat UA in 2-3 weeks depending on GOC
Sputum Cx if possible
Vanco/Zosyn switched to Unasyn/Doxy - to cover pneumonia and stercoral colitis
REGISTERED RESPIRATORY TECHNICIAN
COVID-19, Influenza PCR neg
#Dysphagia
2/2 acute disease
Advance diet as per REGISTERED RESPIRATORY TECHNICIAN
#Acute metabolic encephalopathy on dementia, unspecified
As per -patient was mostly lethargic days before d/c from the previous hospital
TSH and cortisol AM WNL
CT head without acute findings
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
much improving mentation without psychiatric meds - will stop upon d/c
#Hypokalemia
#Hypernatremia
#KAITLIN
Follow and replete electrolytes
improving
most likely 2/2 dehydration
D5W and follow BMP
#Essential HTN
hold losartan with KAITLIN
#Constipation
most likely 2/2 dehydration
IVF
enema
#Non-obstructing nephrolithiasis
hydrate
DVT ppx SCDs
DNR/DNI as per
I have spent at least 38min reviewing chart, test results and providing direct patient care
Anticipated Discharge: > 48 hours
Subjective/Interval History
-
Date of Service: July 25, 2024
Objective Data
-
Labs:
Laboratory Results
07/25/24 07/25/24
11:04 20:00
WBC 5.7
Hgb 8.5 L Pending
Hct 23.9 L Pending
Plt Count 210
Sodium 137
Potassium 3.2 L
Chloride 110 H
Carbon Dioxide 17 L
BUN 17
Creatinine 1.4 H
Glucose 213 H
Calcium 8.4
Total Bilirubin 0.6
AST 59
ALT 32
Alkaline Phosphatase 76
Vital Signs:
Vital Signs
Temp Pulse Resp BP Pulse Ox
98.5 F 70 14 186/61 94
07/25/24 07:05 07/25/24 08:04 07/25/24 07:05 07/25/24 08:04 07/25/24 07:05
I&O
07/24/24 07/25/24 07/26/24
06:59 06:59 06:59
Intake Total 900 / 900
Output Total 300 / 300 600 / 600
Balance 600 / 600 -600 / -600
Review of Systems
-
Unable to obtain full review of systems at this time due to: Dementia
Physical Exam
-
General: No Apparent Distress
HEENT: Normocephalic
Cardiac: Regular Rhythm
GI: Soft, Nontender and Nondistended
Rectal: Brown
Musculoskeletal: No Clubbing, No Cyanosis and No Edema
Skin: Warm
Psych: Calm
[2024-07-25] MEDS: NOVOLOG FLEXPEN-LOW RESISTANCE 1 UNITS SC ×2 (13:55→18:15)
[2024-07-25] MEDS: FERRLECIT 110 MG IV (14:09)
[2024-07-25 15:01] VITALS: BP 107/70
[2024-07-25 16:18] LABS: B-Hydroxybutyrate 0.14 mmol/L (0.02-0.27)
[2024-07-25 16:34] LABS: Glucose - Point of Care 172 mg/dl (70-99)
[2024-07-25] MEDS: TYLENOL 650 MG PO (20:09)
[2024-07-25 21:19] LABS: Glucose - Point of Care 159 mg/dl (70-99)
[2024-07-25] MEDS: ARICEPT 10 MG PO (21:23)
[2024-07-25 23:00] VITALS: BP 104/38
[2024-07-26 00:48] LABS: Hematocrit 23.6 % (39.0-52.0); Hemoglobin 8.1 g/dL (13.0-18.0)
[2024-07-26] MEDS: VIBRAMYCIN 260 MG IV (03:00)
[2024-07-26] MEDS: UNASYN IV ×2 (04:02→10:03)
[2024-07-26 04:37] LABS: % Basophils 0.2 % (0-2); % Eosinophils 0.9 % (0-6); % Immature Granulocytes 0.8 % (0-0.5); % Lymphocytes 18.9 % (20.5-51.1); % Monocytes 6.6 % (1.7-9.3); % Neutrophils 72.6 % (42.2-75.2); Absolute Eosinophils 0.1 10^3/uL (0-0.7); Absolute Immature Granulocytes 0.1 10^3/uL (0-0.05); Absolute Lymphocytes 1.2 10^3/uL (1.2-3.4); Absolute Monocytes 0.4 10^3/uL (0.1-0.6); Absolute Neutrophils 4.6 10^3/uL (1.4-6.5); Hematocrit 24.1 % (39.0-52.0); Hemoglobin 8.3 g/dL (13.0-18.0); Mean Corp Hgb Conc. 34.4 g/dL (33.0-37.0); Mean Corpuscular Hgb 31.2 pg (27.0-31.0); Mean Corpuscular Volume 90.6 fL (80.0-94.0); Mean Platelet Volume 9.8 fL (7.4-10.4); Nucleated Red Blood Cells % 0 % (-); Platelet Count 236 10^3/uL (130-400); Red Blood Cell Count 2.66 10^6/uL (4.70-6.10); White Blood Cell Count 6.4 10^3/uL (4.8-10.8)
[2024-07-26 07:25] VITALS: BP 150/48
[2024-07-26 07:36] LABS: Glucose - Point of Care 136 mg/dl (70-99)
[2024-07-26] MEDS: PROCARDIA XL (EXTENDED RELEASE) 30 MG PO (08:48)
[2024-07-26] MEDS: NAMENDA 5 MG PO ×2 (08:48→22:29)
[2024-07-26] MEDS: COREG 3.125 MG PO ×2 (08:48→22:28)
[2024-07-26] MEDS: NOVOLOG FLEXPEN-LOW RESISTANCE SC ×2 (08:48→16:40)
[2024-07-26] MEDS: PLAVIX 75 MG PO (08:49)
[2024-07-26 08:56] LABS: ALT (SGPT) 45 U/L (0-50); AST (SGOT) 91 U/L (17-59); Albumin 2.7 g/dl (3.5-5.0); Alkaline Phosphatase 91 U/L (38-126); Blood Urea Nitrogen 17 mg/dl (9-20); Calcium 8.5 mg/dl (8.4-10.2); Carbon Dioxide 19 mmol/L (22-30); Chloride 117 mmol/L (98-107); Estimated Creatinine Clearance 31 ml/min; Glucose 109 mg/dl (70-99); Potassium 3.3 mmol/L (3.5-5.1); Sodium 144 mmol/L (135-145); Total Bilirubin 0.6 mg/dl (0.2-1.3); Total Protein 5.3 g/dl (6.3-8.2); eGFR 54.85
[2024-07-26 11:29] LABS: Glucose - Point of Care 157 mg/dl (70-99)
--- NOTE | 2024-07-26 11:45 | W.PN.HOSP.TC ---
Today's Communication/Plan
-
Cont Abx - left shift resolved
stop IVF - patient maxi today
repeat Procal, VBG, Ammonia
Suspect patient alternating mentation due to worsened Dementia
with neg FOBT and normal BUN - unlikely anemia
Assessment / Plan
Assessment / Plan
84yo M with advanced dementia, poorly verbal on baseline, CAD, HTN, insomnia brought from SNF with fever and lethargy, found stercoral colitis, LLL pneumonia and possible UTI
As per patient - he was similarly lethargic during his last week admission to another hospital and then much improved on the day prior to d/c. Then next day developed lethargy again when in rehab. connecting his lethargy with risperidone
that was started in another hospital
Patient mentation alternating - awake days are followed by lethargy days. Concerned for possible worsening of the dementia as a reason.
Cont mgmt for pneumonia
A/P:
#Anemia, NOREEN
PPI
With normal BUN and neg FOBT - unlikely GIB
Will montor CBC
Transfusion consent signed by
Will cont DAPT
iron IV completed 5 days
#Fever, cannot reliably differentiate between stercoral colitis, LLL CAP, most likely sepsis on admission
#Hematuria
CT chest: Bilateral lower lobe opacification compatible with subsegmental atelectasis and tiny left pleural effusion. Cannot exclude pneumonia, particularly in the left lower lobe
follow up eventually with Urology, depending on GOC
legionella and S.pneumonia urinary Ag neg
No hydronephrosis on CT
Bcx NTD
Ucx neg
Repeat UA in 2-3 weeks depending on GOC
Sputum Cx if possible
Vanco/Zosyn switched to Unasyn/Doxy - to cover pneumonia and stercoral colitis
LITIGATION MANAGER
COVID-19, Influenza PCR neg
#Dysphagia
2/2 acute disease
Advance diet as per LITIGATION MANAGER
#Acute metabolic encephalopathy on dementia, unspecified
As per -patient was mostly lethargic days before d/c from the previous hospital
TSH and cortisol AM WNL
CT head without acute findings
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
much improving mentation without psychiatric meds - will stop upon d/c
#Hypokalemia
#Hypernatremia
#KAITLIN
Follow and replete electrolytes
improving
most likely 2/2 dehydration
D5W and follow BMP
#Essential HTN
hold losartan with KAITLIN
#Constipation
most likely 2/2 dehydration
IVF
enema
#Non-obstructing nephrolithiasis
hydrate
DVT ppx SCDs
DNR/DNI as per
I have spent at least 56min reviewing chart, test results and providing direct patient care
Anticipated Discharge: > 48 hours
Subjective/Interval History
-
Date of Service: July 26, 2024
Objective Data
-
Labs:
Laboratory Results
07/26/24 07/26/24 07/26/24
00:13 04:00 04:09
WBC 6.4
Hgb 8.1 L Cancelled 8.3 L
Hct 23.6 L Cancelled 24.1 L
Plt Count 236
Sodium
Potassium
Chloride
Carbon Dioxide
BUN
Creatinine
Glucose
Calcium
Total Bilirubin
AST
ALT
Alkaline Phosphatase
07/26/24 07/26/24
07:48 12:00
WBC
Hgb Pending
Hct Pending
Plt Count
Sodium 144
Potassium 3.3 L
Chloride 117 H
Carbon Dioxide 19 L
BUN 17
Creatinine 1.3
Glucose 109 H
Calcium 8.5
Total Bilirubin 0.6
AST 91 H
ALT 45
Alkaline Phosphatase 91
Vital Signs:
Vital Signs
Temp Pulse Resp BP Pulse Ox
99.4 F 62 18 150/48 96
07/26/24 11:02 07/26/24 07:25 07/26/24 07:25 07/26/24 07:25 07/26/24 07:25
I&O
07/25/24 07/26/24 07/27/24
06:59 06:59 06:59
Intake Total 1370 / 1370
Output Total 600 / 600 1500 / 1500
Balance -600 / -600 -130 / -130
Review of Systems
-
Unable to obtain full review of systems at this time due to: Dementia
Physical Exam
-
General: No Apparent Distress
Respiratory: Clear to Auscultation
Cardiac: Regular Rhythm
GI: Soft, Nontender and Nondistended
Neuro: Other (lethargic, but arousable)
Psych: Calm and Apparent Dementia
--- NOTE | 2024-07-26 12:03 | CON.NEURO ---
Consultation
Order
Date of Consultation: 07/26/24
Requesting Provider: Mark De Souza MD
Reason for Consult: Fluctuating mental status
Neurology Consultation Note.
HPI: This is an 84-year-old man who presented to [facility] from [facility] on July 20, 2024 with fever and encephalopathy.
ER VS: 126/58, 83, 30 9.3C
EKG: NSR, QTc Int : 415 ms
PDMP: none
Labs: Glucose 109�213, hemoglobin�7.7, normal WBCs, platelets, sodium, vitamin B12,, TSH
Brain MRI wo william(07/23/2024) Old infarct with encephalomalacia and gliosis posterior left MCA distribution.
CT chest-Bilateral lower lobe opacification compatible with subsegmental atelectasis and tiny left pleural effusion. Cannot exclude pneumonia, particularly in the left lower lobe.
MAR: Unasyn, off Vancocin, Vibramycin, Zosyn
According to patient's spouse, Mr Adame has a history of stroke in 2010 and progressive memory decline over the past 8-10 years, now presenting with a significant decline in functional status over the past two weeks.
Mr Adame had been relatively stable following his stroke in 2010, with only slow speech as a residual symptom. He was able to return to work, engage in physical activity, and function normally. However, about 8-10 years ago, he began
experiencing memory problems, which progressively worsened over the last year requiring assistance with bathing, dressing, teeth brushing, and shaving. He became limited to yes/no responses and simple greetings, though he could still at times
recognize family members. Approximately 5 months ago, he began experiencing episodes of aggression, for which risperidone was prescribed. His reports that after starting risperidone, he exhibited periods of what sounds to be akathisia.
Two weeks ago, Mr Adame felt unwell, with shaky legs and low blood pressure (74/40). After recovering, he went to daycare but collapsed at the entrance. He was taken to the emergency room, where he became reportedly unresponsive. Following
admission and adjustment of his medications, including discontinuation of risperidone, he briefly improved, becoming more alert and responsive.
The patient has a family history of dementia, with his father developing the condition in his 90s.
PMH: AD, L MCA stroke(2010), oral/pharyngeal dysphagia, HTN, DM, anemia, nephrolithiasis
PSH: none
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
FH:father at 92, from dementia
All:NKDA
ROS: Unable due to encephalopathy
General: In no acute distress, pale
Cardio: Regular rate and rhythm. Extremities are without cyanosis or edema.
Neuro:
Mental Status: Eyes closed. Does not follow requests. No verbal output
Cranial Nerves: Resists pupillary exam. Orthophoric primary gaze. Pupils are 3 mm, surgical. Right facial weakness.
Motor: Increased motor tone in upper and lower extremities. Withdraws to noxious stimuli recent back pain
Reflexes: Limited exam due to increased moderate
Sensory: Grimaces to noxious stim
Coordination: No tremors myoclonic movement
Gait: deferred
Assessment and Plan:
I. Multifactorial encephalopathy (neurodegenerative, infectious)
II. Parkinsonism, likely vascular
III. History of left MCA stroke (unclear mechanism)
- Falls, delirium and aspiration precaution
- Please check CK, ammonia
- Will obtain a copy of EEG done at [facility]
- Routine EEG
- May consider CSF studies based on clinical course.
- Case was discussed with patient's
I personally reviewed all radiology and labs along with past medical records pertinent to current medical problems. Total time spent in patient care is 60 minutes.
Thank you for allowing us to participate in the care of this patient. We will continue to follow. Please do not hesitate to contact us with any questions or concerns.
Subjective/Objective
Subjective Data
Date of Service: July 26, 2024
Objective Data
Vital Signs
Temp Pulse Resp BP Pulse Ox
37.4 C 62 18 150/48 96
07/26/24 11:02 07/26/24 07:25 07/26/24 07:25 07/26/24 07:25 07/26/24 07:25
Lab Results
07/26/24 07:48
Sodium 144 mmol/L (135-145) 07/26/24 07:48
Potassium 3.3 mmol/L (3.5-5.1) L 07/26/24 07:48
BUN 17 mg/dl (9-20) 07/26/24 07:48
Glucose 109 mg/dl (70-99) H 07/26/24 07:48
Calcium 8.5 mg/dl (8.4-10.2) 07/26/24 07:48
Vitamin B12 739 pg/ml (239-931) 07/21/24 05:42
Patient Allergies
No Known Allergies Allergy (Unverified 07/20/24 21:47)
Medications
-
Active Medications
Generic Name Dose Route Start Last Admin
Trade Name Freq PRN Reason Stop Dose Admin
Acetaminophen 650 mg 07/21/24 00:30 07/25/24 20:09
Acetaminophen 325 Mg Tablet PO 08/18/24 00:29 650 mg
Q4HPRN PRN Administration
BURROWS/mild pain/temp > 100.4 F
Acetaminophen 650 mg 07/21/24 00:30 07/22/24 22:27
Acetaminophen 650 Mg Rectal Suppository RECTAL 08/18/24 00:29 650 mg
Q4HPRN PRN Administration
BURROWS/ mild pain/ temp >/= 100.4F
Aspirin 81 mg 07/26/24 12:00
Aspirin 81 Mg Chewable Tablet PO 08/23/24 11:59
DAILY JUAN
Carvedilol 3.125 mg 07/21/24 08:00 07/26/24 08:48
Carvedilol 3.125 Mg Tablet PO 08/18/24 07:59 3.125 mg
BID JUAN Administration
Clopidogrel Bisulfate 75 mg 07/21/24 08:00 07/26/24 08:49
Clopidogrel 75 Mg Tablet PO 08/18/24 07:59 75 mg
DAILY JUAN Administration
Dextrose 12.5 grams 07/25/24 10:44
Dextrose 50% (0.5 Grams/Ml) 50 Ml Syringe IV 08/22/24 10:43
[id number] PRN
hypoglycemia
Protocol
Donepezil HCl 10 mg 07/21/24 22:00 07/25/24 21:23
Donepezil Hcl 10 Mg Tablet PO 08/18/24 21:59 10 mg
HS JUAN Administration
Glucagon 1 mg 07/25/24 10:44
Glucagon 1 Mg Vial IM 08/22/24 10:43
PRN PRN
hypoglycemia
Protocol
Ferric Sodium Gluconate 110 mls @ 110 mls/hr 07/22/24 14:00 07/25/24 14:09
Complex 125 mg/ Sodium IV 07/26/24 14:59 110 mls
Chloride DAILY@1400 JUAN Administration
Ampicillin Sodium/Sulbactam 120 mls @ 240 mls/hr 07/24/24 16:00 07/26/24 10:03
Sodium 3 gm/ Sodium Chloride IV 120 mls
Q6H JUAN Administration
Doxycycline Hyclate 100 mg/ 260 mls @ 260 mls/hr 07/24/24 16:00 07/26/24 03:00
Sodium Chloride IV 260 mls
Q12H JUAN Administration
Insulin Aspart 0 units 07/25/24 11:30 07/26/24 08:48
Insulin Aspart Low Resistance 300 Units/3 Ml Pen.Injctr SC 08/22/24 11:29 Not Given
AC JUAN
Protocol
Memantine 5 mg 07/21/24 08:00 07/26/24 08:48
Memantine 10 Mg Tablet PO 08/18/24 07:59 5 mg
BID JUAN Administration
Nifedipine 30 mg 07/25/24 08:00 07/26/24 08:48
Nifedipine 30 Mg Extended Release Tablet PO 08/22/24 07:59 30 mg
DAILY JUAN Administration
Ondansetron HCl 4 mg 07/21/24 00:30
Ondansetron 4 Mg/2 Ml Vial IV 08/18/24 00:29
Q6HPRN PRN
NAUSEA/VOMITING
Pantoprazole Sodium 40 mg 07/25/24 12:00 07/25/24 23:41
Pantoprazole Sodium 40 Mg/10 Ml Vial IV 08/22/24 11:59 40 mg
Q12H JUAN Administration
Sodium Chloride 0 flush 07/20/24 23:00 07/21/24 00:44
Sodium Chloride 0.9% (Flush) Syringe IV 08/17/24 22:59 1 flush
PER PROTOCOL JUAN Administration
Sodium Chloride 10 ml 07/25/24 12:00 07/25/24 23:41
Sodium Chloride 0.9% (Preservative Free) 10 Ml Vial IV 08/22/24 11:59 10 ml
Q12H JUAN Administration
Home Medications
�Medication �Instructions �Recorded
acetaminophen 325 mg tablet 650 mg PO Q4H PRN temp >100.4 07/20/24
aspirin 81 mg tablet,delayed 81 mg PO DAILY 07/20/24
release
bisacodyl 10 mg rectal suppository 10 mg [place] DAILY PRN if no result 07/20/24
from MOM
buspirone 10 mg tablet 10 mg PO TID 07/20/24
carvedilol 3.125 mg tablet 3.125 mg PO BID 07/20/24
clopidogrel 75 mg tablet (Plavix) 75 mg PO DAILY 07/20/24
cyanocobalamin (vitamin B-12) 1,000 mcg PO DAILY 07/20/24
1,000 mcg tablet
donepezil 10 mg tablet 10 mg PO HS 07/20/24
famotidine 20 mg tablet 20 mg PO DAILY 07/20/24
losartan 25 mg tablet 25 mg PO DAILY 07/20/24
magnesium hydroxide 400 mg/5 mL 30 ml PO HS PRN if no BM in 3 days 07/20/24
oral suspension (Milk of Magnesia)
memantine 5 mg tablet 5 mg PO BID 07/20/24
mirtazapine 7.5 mg tablet 7.5 mg PO HS 07/20/24
Vital Signs and Labs
-
Vital Signs and Labs:
Vital Signs
Temp Pulse Resp BP Pulse Ox
37.4 C 62 18 150/48 96
07/26/24 11:02 07/26/24 07:25 07/26/24 07:25 07/26/24 07:25 07/26/24 07:25
Lab Results
07/26/24 07:48
Sodium 144 mmol/L (135-145) 07/26/24 07:48
Potassium 3.3 mmol/L (3.5-5.1) L 07/26/24 07:48
BUN 17 mg/dl (9-20) 07/26/24 07:48
Glucose 109 mg/dl (70-99) H 07/26/24 07:48
Calcium 8.5 mg/dl (8.4-10.2) 07/26/24 07:48
Vitamin B12 739 pg/ml (239-931) 07/21/24 05:42
Medications
-
Medications:
Generic Name Dose Route Start Last Admin
Trade Name Freq PRN Reason Stop Dose Admin
Acetaminophen 650 mg 07/21/24 00:30 07/25/24 20:09
Acetaminophen 325 Mg Tablet PO 08/18/24 00:29 650 mg
Q4HPRN PRN Administration
BURROWS/mild pain/temp > 100.4 F
Acetaminophen 650 mg 07/21/24 00:30 07/22/24 22:27
Acetaminophen 650 Mg Rectal Suppository RECTAL 08/18/24 00:29 650 mg
Q4HPRN PRN Administration
BURROWS/ mild pain/ temp >/= 100.4F
Aspirin 81 mg 07/26/24 12:00
Aspirin 81 Mg Chewable Tablet PO 08/23/24 11:59
DAILY JUAN
Carvedilol 3.125 mg 07/21/24 08:00 07/26/24 08:48
Carvedilol 3.125 Mg Tablet PO 08/18/24 07:59 3.125 mg
BID JUAN Administration
Clopidogrel Bisulfate 75 mg 07/21/24 08:00 07/26/24 08:49
Clopidogrel 75 Mg Tablet PO 08/18/24 07:59 75 mg
DAILY JUAN Administration
Dextrose 12.5 grams 07/25/24 10:44
Dextrose 50% (0.5 Grams/Ml) 50 Ml Syringe IV 08/22/24 10:43
[id number] PRN
hypoglycemia
Protocol
Donepezil HCl 10 mg 07/21/24 22:00 07/25/24 21:23
Donepezil Hcl 10 Mg Tablet PO 08/18/24 21:59 10 mg
HS JUAN Administration
Glucagon 1 mg 07/25/24 10:44
Glucagon 1 Mg Vial IM 08/22/24 10:43
PRN PRN
hypoglycemia
Protocol
Ferric Sodium Gluconate 110 mls @ 110 mls/hr 07/22/24 14:00 07/25/24 14:09
Complex 125 mg/ Sodium IV 07/26/24 14:59 110 mls
Chloride DAILY@1400 JUAN Administration
Ampicillin Sodium/Sulbactam 120 mls @ 240 mls/hr 07/24/24 16:00 07/26/24 10:03
Sodium 3 gm/ Sodium Chloride IV 120 mls
Q6H JUAN Administration
Doxycycline Hyclate 100 mg/ 260 mls @ 260 mls/hr 07/24/24 16:00 07/26/24 03:00
Sodium Chloride IV 260 mls
Q12H JUAN Administration
Insulin Aspart 0 units 07/25/24 11:30 07/26/24 08:48
Insulin Aspart Low Resistance 300 Units/3 Ml Pen.Injctr SC 08/22/24 11:29 Not Given
AC JUAN
Protocol
Memantine 5 mg 07/21/24 08:00 07/26/24 08:48
Memantine 10 Mg Tablet PO 08/18/24 07:59 5 mg
BID JUAN Administration
Nifedipine 30 mg 07/25/24 08:00 07/26/24 08:48
Nifedipine 30 Mg Extended Release Tablet PO 08/22/24 07:59 30 mg
DAILY JUAN Administration
Ondansetron HCl 4 mg 07/21/24 00:30
Ondansetron 4 Mg/2 Ml Vial IV 08/18/24 00:29
Q6HPRN PRN
NAUSEA/VOMITING
Pantoprazole Sodium 40 mg 07/25/24 12:00 07/25/24 23:41
Pantoprazole Sodium 40 Mg/10 Ml Vial IV 08/22/24 11:59 40 mg
Q12H JUAN Administration
Sodium Chloride 0 flush 07/20/24 23:00 07/21/24 00:44
Sodium Chloride 0.9% (Flush) Syringe IV 08/17/24 22:59 1 flush
PER PROTOCOL JUAN Administration
Sodium Chloride 10 ml 07/25/24 12:00 07/25/24 23:41
Sodium Chloride 0.9% (Preservative Free) 10 Ml Vial IV 08/22/24 11:59 10 ml
Q12H JUAN Administration
Home Medications
-
Home Medications
acetaminophen 325 mg tablet 650 mg PO Q4H PRN temp >100.4 07/20/24
aspirin 81 mg tablet,delayed release 81 mg PO DAILY 07/20/24
bisacodyl 10 mg rectal suppository 10 mg [place] DAILY PRN if no result from MOM 07/20/24
buspirone 10 mg tablet 10 mg PO TID 07/20/24
carvedilol 3.125 mg tablet 3.125 mg PO BID 07/20/24
clopidogrel 75 mg tablet (Plavix) 75 mg PO DAILY 07/20/24
cyanocobalamin (vitamin B-12) 1,000 mcg tablet 1,000 mcg PO DAILY 07/20/24
donepezil 10 mg tablet 10 mg PO HS 07/20/24
famotidine 20 mg tablet 20 mg PO DAILY 07/20/24
losartan 25 mg tablet 25 mg PO DAILY 07/20/24
magnesium hydroxide 400 mg/5 mL oral suspension (Milk of Magnesia) 30 ml PO HS PRN if no BM in 3 days 07/20/24
memantine 5 mg tablet 5 mg PO BID 07/20/24
mirtazapine 7.5 mg tablet 7.5 mg PO HS 07/20/24
[2024-07-26 12:12] LABS: Hematocrit 21.6 % (39.0-52.0); Hemoglobin 7.7 g/dL (13.0-18.0); Reticulocyte Count 0.7 % (0.4-2.8)
[2024-07-26 12:16] LABS: Venous Blood Gas B.E. -4.7 mmol/L (-4 to +4); Venous Blood Gas HCO3 18.2 mmol/L (22-27); Venous Blood Gas O2 Sat % 99.1 %; Venous Blood Gas pCO2 25 mmHg (35-48); Venous Blood Gas pH 7.47 (7.32-7.43); Venous Blood Gas pO2 111 mmHg (30-50)
[2024-07-26 12:21] LABS: Venous Blood Gas O2 Therapy RA
[2024-07-26 12:25] LABS: LDH 353 U/L (120-246)
[2024-07-26 12:32] LABS: Ammonia < 9 umol/L (9-30)
[2024-07-26] MEDS: LR IV (12:33)
[2024-07-26 12:41] LABS: Procalcitonin 0.13 ng/ml (0.0-0.25)
[2024-07-26] MEDS: LOW STRENGTH ASPIRIN 81 MG PO (12:49)
[2024-07-26] MEDS: PROTONIX IV 40 MG IV ×2 (12:49→23:17)
[2024-07-26] MEDS: NSS (PRESERVATIVE FREE) 10 ML IV ×2 (12:50→23:17)
[2024-07-26] MEDS: NOVOLOG FLEXPEN-LOW RESISTANCE 1 UNITS SC (12:50)
[2024-07-26 13:19] LABS: Creatine Phosphokinase 1200 U/L (55-170)
--- NOTE | 2024-07-26 13:23 | PHA.VAN.IN ---
Assessment
- Assessment
Renal Function: Appears elevated from baseline
Renal Function may be Overestimated due to: AGE AND WEIGHT
Concomitant Antimicrobials: CEFEPIME
- Previous Dosing Experience
Previous Regimen: PRN BY LEVEL
Date of Regimen: 07/2024
Provided Trough of: 10.9
Patient's SCR is: Similar to previous dosing experience
Patient's weight is: Similar to previous dosing experience
Plan
- Plan
Initial / Loading Dose: 1250MG
Maintenance Regimen: PRN BY LEVEL
Monitoring: RANDOM 07/27 IN AM
LAST DOSE 750MG 07/24
Pharmacokinetics Vancomycin I
- -
Patient Age: 84
Patient Sex: Male
Vancomycin Day #: 1
Indication: Pulmonary/Respiratory
Requesting Provider: Ap
Pertinent Antimicrobial Allergies:
No known drug allergies
Height / Weight:
Height 5 ft 6 in
Actual Weight 50.258 kg
Pertinent Past Medical History: BMI ~18
- Vital Signs / Lab Results
Temp Pulse Resp BP Pulse Ox
99.4 F 62 18 150/48 96
07/26/24 11:02 07/26/24 07:25 07/26/24 07:25 07/26/24 07:25 07/26/24 07:25
Lab Results - Hematology
07/25/24 07/26/24
11:04 04:09
WBC 5.7 6.4
Lab Results - Chemistry
07/24/24 07/25/24 07/26/24
07:03 11:04 07:48
BUN 21 H 17 17
Creatinine 1.3 1.4 H 1.3
Estimated Creat Clear 31 29 31
Albumin 2.8 L 2.7 L
Microbiology Results
07/20/24 21:45 Blood Culture - Final
Blood/Venous No Growth - Final Report
07/20/24 21:34 Blood Culture - Final
Blood/Venous No Growth - Final Report
07/23/24 12:13 MRSA Screen - Final
Nose No Methicillin Resistant Staphylococcus aureus isolated.
[2024-07-26] MEDS: FERRLECIT 110 MG IV (14:23)
[2024-07-26] MEDS: NSS 1000 IV ×2 (14:24→23:17)
[2024-07-26] MEDS: VANCOCIN 275 MG IV (14:26)
[2024-07-26] MEDS: MAXIPIME 2000 MG IV (14:26)
[2024-07-26] MEDS: STERILE WATER FOR INJECTION 10 ML IV (14:26)
[2024-07-26 14:37] VITALS: BP 108/56
--- NOTE | 2024-07-26 15:06 | CS.PSYCHR ---
Consult Summary - Psychiatry
-
Pt is 84 yo male admitted from group home with fever, decreased responsiveness. Pt has 8- 10 year history of dementia, noted with fluctuating mental state. Per Neurology eval, pt placed on Risperidone after onset of aggressive behavior about 5
months ago. Pt reportedly had akathisia on Risperidone, which was stopped after pt admitted post- collapse 2 weeks [facility]. Reportedly, the consensus is pt's mentation has been better off sedating meds. During this stay, pt initially npo, then
resumed on Donepezil, Memantine, Buspirone. Pt has hx of L MCA stroke in 2010. Pt noted to have some Parkinsonism/stiffness, etiology unclear, likely vascular per Neurology. Reviewed with nursing staff, who reports pt was only able to say a few
disjointed words earlier today. reportedly speaks to him in Haitian.
MSE: pt reclining in bed, asleep, in no apparent distress.
Imp: Dementia, progressive; Multifactorial encephalopathy
Rec: Would continue current medications, agree with holding off additional sedating agents unless behavior necessitates intervention
Will follow peripherally
[2024-07-26 16:41] LABS: Glucose - Point of Care 143 mg/dl (70-99)
[2024-07-26] MEDS: BUSPAR 10 MG PO ×2 (17:24→22:28)
[2024-07-26 17:48] VITALS: BP 112/83
[2024-07-26 18:04] VITALS: BP 126/48
[2024-07-26 20:28] VITALS: BP 138/58
[2024-07-26 21:32] LABS: Glucose - Point of Care 137 mg/dl (70-99)
[2024-07-26] MEDS: ARICEPT 10 MG PO (22:28)
[2024-07-26 23:00] VITALS: BP 161/57
[2024-07-26] MEDS: TYLENOL 650 MG PO (23:23)
[2024-07-27 00:14] LABS: Urine Albumin 2+ (Neg - Trace); Urine Bilirubin Negative (Negative); Urine Character Clear (Clear); Urine Color Yellow; Urine Glucose Negative (Negative); Urine Ketone Negative (Negative); Urine Leukocyte Negative (Negative); Urine Nitrite Negative (Negative); Urine Occult Blood 4+ (Negative); Urine Urobilinogen Negative (Neg - 1+)
[2024-07-27 01:17] LABS: Urine Amorphous Seen; Urine Squamous Cell 16-20 /LPF (Few)
[2024-07-27 01:19] LABS: Urine Bacteria Many (Negative)
[2024-07-27 01:20] LABS: Urine Red Blood Cell 0-2 /HPF (0-2)
[2024-07-27] MEDS: STERILE WATER FOR INJECTION 10 ML IV ×2 (02:21→13:21)
[2024-07-27] MEDS: MAXIPIME 2000 MG IV ×2 (02:21→13:21)
[2024-07-27 06:37] LABS: % Basophils 0.2 % (0-2); % Eosinophils 0.5 % (0-6); % Immature Granulocytes 1.1 % (0-0.5); % Lymphocytes 15.8 % (20.5-51.1); % Monocytes 7.4 % (1.7-9.3); Absolute Immature Granulocytes 0.1 10^3/uL (0-0.05); Absolute Monocytes 0.5 10^3/uL (0.1-0.6); Absolute Neutrophils 4.7 10^3/uL (1.4-6.5); Hematocrit 25.8 % (39.0-52.0); Hemoglobin 9.1 g/dL (13.0-18.0); Mean Corp Hgb Conc. 35.3 g/dL (33.0-37.0); Mean Corpuscular Hgb 30.8 pg (27.0-31.0); Mean Corpuscular Volume 87.5 fL (80.0-94.0); Mean Platelet Volume 9.3 fL (7.4-10.4); Nucleated Red Blood Cells % 0 % (-); Platelet Count 270 10^3/uL (130-400); Red Blood Cell Count 2.95 10^6/uL (4.70-6.10); Red Cell Dist. Width 14.3 % (11.5-14.5); White Blood Cell Count 6.2 10^3/uL (4.8-10.8)
[2024-07-27 07:15] LABS: ALT (SGPT) 55 U/L (0-50); AST (SGOT) 118 U/L (17-59); Albumin 2.7 g/dl (3.5-5.0); Alkaline Phosphatase 88 U/L (38-126); Blood Urea Nitrogen 18 mg/dl (9-20); Calcium 8.4 mg/dl (8.4-10.2); Carbon Dioxide 17 mmol/L (22-30); Chloride 119 mmol/L (98-107); Estimated Creatinine Clearance 29 ml/min; Glucose 120 mg/dl (70-99); Potassium 3.2 mmol/L (3.5-5.1); Sodium 147 mmol/L (135-145); Total Bilirubin 0.7 mg/dl (0.2-1.3); Total Protein 5.2 g/dl (6.3-8.2); eGFR 50.18
[2024-07-27 07:30] VITALS: BP 158/65
--- NOTE | 2024-07-27 07:38 | W.PN.NEURO.1 ---
Today's Communication / Plan
-
.
Subjective/Objective
Subjective Data
Date of Service: July 27, 2024
Neurology follow-up note.
24 h events: fever of 38.2C.
Labs: Sodium�147, creati.
nine�1.4
PMH: AD, L MCA stroke(2010), oral/pharyngeal dysphagia, HTN, DM, anemia, nephrolithiasis
PSH: none
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
FH:father at 92, from dementia
All:NKDA
ROS: Unable due to encephalopathy
General: In no acute distress, pale
Cardio: Regular rate and rhythm. Extremities are without cyanosis or edema.
Neuro:
Mental Status: Awakens to tactile stimuli. Attends briefly. Does not follow requests.
Cranial Nerves: Orthophoric primary gaze. Pupils are 3 mm, surgical. Right facial weakness.
Motor: Increased motor tone in upper and lower extremities. Withdraws to noxious stimuli recent back pain
Reflexes: Limited exam due to increased moderate
Sensory: Grimaces to noxious stim
Coordination: No tremors myoclonic movement
Gait: deferred
Assessment and Plan:
I. Multifactorial encephalopathy (metabolic, neurodegenerative, infectious)
II. Parkinsonism, likely vascular
III. History of left MCA stroke (unclear mechanism)
- Seizure and aspiration precautions
- ID consult
- please follow-up CT spine result
- Case was discussed with patient's and daughter
I personally reviewed all radiology and labs along with past medical records pertinent to current medical problems. Total time spent in patient care is 40 minutes.
Thank you for allowing us to participate in the care of this patient. We will continue to follow. Please do not hesitate to contact us with any questions or concerns.
Objective Data
Vital Signs
Temp Pulse Resp BP Pulse Ox
37.0 C 66 14 161/57 92
07/27/24 03:00 07/26/24 23:00 07/26/24 23:00 07/26/24 23:00 07/26/24 23:00
Lab Results
07/27/24 06:19
07/27/24 06:19
Sodium 147 mmol/L (135-145) H 07/27/24 06:19
Potassium 3.2 mmol/L (3.5-5.1) L 07/27/24 06:19
BUN 18 mg/dl (9-20) 07/27/24 06:19
Glucose 120 mg/dl (70-99) H 07/27/24 06:19
Calcium 8.4 mg/dl (8.4-10.2) 07/27/24 06:19
Vitamin B12 739 pg/ml (021-441) 07/21/24 05:42
Patient Allergies
No Known Allergies Allergy (Unverified 07/20/24 21:47)
Vital Signs and Labs
-
Vital Signs and Labs:
Vital Signs
Temp Pulse Resp BP Pulse Ox
37.0 C 66 14 161/57 92
07/27/24 03:00 07/26/24 23:00 07/26/24 23:00 07/26/24 23:00 07/26/24 23:00
Lab Results
07/27/24 06:19
07/27/24 06:19
Sodium 147 mmol/L (135-145) H 07/27/24 06:19
Potassium 3.2 mmol/L (3.5-5.1) L 07/27/24 06:19
BUN 18 mg/dl (9-20) 07/27/24 06:19
Glucose 120 mg/dl (70-99) H 07/27/24 06:19
Calcium 8.4 mg/dl (8.4-10.2) 07/27/24 06:19
Vitamin B12 739 pg/ml (908-037) 07/21/24 05:42
Medications
-
Medications:
Generic Name Dose Route Start Last Admin
Trade Name Freq PRN Reason Stop Dose Admin
Acetaminophen 650 mg 07/21/24 00:30 07/26/24 23:23
Acetaminophen 325 Mg Tablet PO 08/18/24 00:29 650 mg
Q4HPRN PRN Administration
BURROWS/mild pain/temp > 100.4 F
Acetaminophen 650 mg 07/21/24 00:30 07/22/24 22:27
Acetaminophen 650 Mg Rectal Suppository RECTAL 08/18/24 00:29 650 mg
Q4HPRN PRN Administration
UBRROWS/ mild pain/ temp >/= 100.4F
Aspirin 81 mg 07/26/24 12:00 07/26/24 12:49
Aspirin 81 Mg Chewable Tablet PO 08/23/24 11:59 81 mg
DAILY JUAN Administration
Buspirone HCl 10 mg 07/26/24 16:00 07/26/24 22:28
Buspirone 10 Mg Tablet PO 08/23/24 15:59 10 mg
TID JUAN Administration
Carvedilol 3.125 mg 07/21/24 08:00 07/26/24 22:28
Carvedilol 3.125 Mg Tablet PO 08/18/24 07:59 3.125 mg
BID JUAN Administration
Cefepime HCl 2,000 mg 07/26/24 14:00 07/27/24 02:21
Cefepime Hcl 2,000 Mg/12.5 Ml Vial IV 2,000 mg
Q12H JUAN Administration
Clopidogrel Bisulfate 75 mg 07/21/24 08:00 07/26/24 08:49
Clopidogrel 75 Mg Tablet PO 08/18/24 07:59 75 mg
DAILY JUAN Administration
Dextrose 12.5 grams 07/25/24 10:44
Dextrose 50% (0.5 Grams/Ml) 50 Ml Syringe IV 08/22/24 10:43
[id number] PRN
hypoglycemia
Protocol
Donepezil HCl 10 mg 07/21/24 22:00 07/26/24 22:28
Donepezil Hcl 10 Mg Tablet PO 08/18/24 21:59 10 mg
HS JUAN Administration
Glucagon 1 mg 07/25/24 10:44
Glucagon 1 Mg Vial IM 08/22/24 10:43
PRN PRN
hypoglycemia
Protocol
Vancomycin HCl 1 each/ Device 0 mls @ 0 mls/hr 07/26/24 13:20
IV
PER PROTOCOL JUAN
As Directed
Sodium Chloride 1,000 mls @ 100 mls/hr 07/26/24 13:30 07/26/24 23:17
Nss IV 1,000 mls
.Q10H JUAN Administration
Dextrose/Lactated Ringer's 1,000 mls @ 100 mls/hr 07/27/24 08:00
D5lr IV
.Q10H JUAN
Potassium Chloride 40 meq/ 270 mls @ 67.5 mls/hr 07/27/24 08:00
Sodium Chloride IV 07/27/24 15:59
Q4H JUAN
Insulin Aspart 0 units 07/25/24 11:30 07/26/24 16:40
Insulin Aspart Low Resistance 300 Units/3 Ml Pen.Injctr SC 08/22/24 11:29 Not Given
AC JUAN
Protocol
Memantine 5 mg 07/21/24 08:00 07/26/24 22:29
Memantine 10 Mg Tablet PO 08/18/24 07:59 5 mg
BID JUAN Administration
Nifedipine 30 mg 07/25/24 08:00 07/26/24 08:48
Nifedipine 30 Mg Extended Release Tablet PO 08/22/24 07:59 30 mg
DAILY JUAN Administration
Ondansetron HCl 4 mg 07/21/24 00:30
Ondansetron 4 Mg/2 Ml Vial IV 08/18/24 00:29
Q6HPRN PRN
NAUSEA/VOMITING
Pantoprazole Sodium 40 mg 07/25/24 12:00 07/26/24 23:17
Pantoprazole Sodium 40 Mg/10 Ml Vial IV 08/22/24 11:59 40 mg
Q12H JUAN Administration
Sodium Chloride 0 flush 07/20/24 23:00 07/21/24 00:44
Sodium Chloride 0.9% (Flush) Syringe IV 08/17/24 22:59 1 flush
PER PROTOCOL JUAN Administration
Sodium Chloride 10 ml 07/25/24 12:00 07/26/24 23:17
Sodium Chloride 0.9% (Preservative Free) 10 Ml Vial IV 08/22/24 11:59 10 ml
Q12H JUAN Administration
Sterile Water 10 ml 07/26/24 14:00 07/27/24 02:21
Sterile Water For Injection 10 Ml Vial IV 08/23/24 13:59 10 ml
Q12H JUAN Administration
Home Medications
-
Home Medications
acetaminophen 325 mg tablet 650 mg PO Q4H PRN temp >100.4 07/20/24
aspirin 81 mg tablet,delayed release 81 mg PO DAILY 07/20/24
bisacodyl 10 mg rectal suppository 10 mg ID DAILY PRN if no result from MOM 07/20/24
buspirone 10 mg tablet 10 mg PO TID 07/20/24
carvedilol 3.125 mg tablet 3.125 mg PO BID 07/20/24
clopidogrel 75 mg tablet (Plavix) 75 mg PO DAILY 07/20/24
cyanocobalamin (vitamin B-12) 1,000 mcg tablet 1,000 mcg PO DAILY 07/20/24
donepezil 10 mg tablet 10 mg PO HS 07/20/24
famotidine 20 mg tablet 20 mg PO DAILY 07/20/24
losartan 25 mg tablet 25 mg PO DAILY 07/20/24
magnesium hydroxide 400 mg/5 mL oral suspension (Milk of Magnesia) 30 ml PO HS PRN if no BM in 3 days 07/20/24
memantine 5 mg tablet 5 mg PO BID 07/20/24
mirtazapine 7.5 mg tablet 7.5 mg PO HS 07/20/24
[2024-07-27 07:42] LABS: Glucose - Point of Care 125 mg/dl (70-99)
--- NOTE | 2024-07-27 08:30 | PHA.VAN.FU ---
Vancomycin Assessment / Plan
- Assessment
Renal Function: Stable
WBC's are: WNL
In the past 24 hrs, patient has been: Febrile (100.7F)
Concomitant Antimicrobials: CEFEPIME
- Assessment - Therapeutic Drug Monitoring
Random Level: 13.0
- Dosing Plan
Dosing by Level: Re-dose today (500MG)
- Monitoring Plan
Random Level: 07/28 IN AM
- Follow Up
Pharmacy will continue to follow.
Vancomycin Follow UP
- -
Patient Age: 84
Patient Sex: Male
Vancomycin Day #: 2
Indication: Pulmonary/Respiratory
Requesting Provider: Ap
Pertinent Antimicrobial Allergies:
No known drug allergies
Height / Weight:
Height 5 ft 6 in
Actual Weight 50.258 kg
IBW in k
Pertinent Past Medical History: BMI ~18
- Vital Signs / Lab Results
Temp Pulse Resp BP Pulse Ox
99.5 F 68 16 158/65 95
07/27/24 07:30 07/27/24 07:30 07/27/24 07:30 07/27/24 07:30 07/27/24 07:30
Lab Results - Hematology
07/25/24 07/26/24 07/27/24
11:04 04:09 06:19
WBC 5.7 6.4 6.2
Lab Results - Chemistry
07/25/24 07/26/24 07/27/24
11:04 07:48 06:19
BUN 17 17 18
Creatinine 1.4 H 1.3 1.4 H
Estimated Creat Clear 29 31 29
Albumin 2.8 L 2.7 L 2.7 L
Lab Results - Urine
07/26/24
23:48
Urine Nitrite (Reflex) Negative
Leukocyte Esterase Rfl Negative
Ur Squamous Epith Cells 16-20
Microbiology Results
07/20/24 21:45 Blood Culture - Final
Blood/Venous No Growth - Final Report
07/20/24 21:34 Blood Culture - Final
Blood/Venous No Growth - Final Report
Therapeutic Drug Monitoring
Random Vancomycin 13.0 ug/ml 07/27/24 06:19
[2024-07-27] MEDS: D5LR 1000 IV ×2 (08:33→21:37)
[2024-07-27] MEDS: NOVOLOG FLEXPEN-LOW RESISTANCE SC (08:35)
[2024-07-27] MEDS: COREG 3.125 MG PO (08:37)
[2024-07-27] MEDS: PLAVIX 75 MG PO (08:37)
[2024-07-27] MEDS: PROCARDIA XL (EXTENDED RELEASE) 30 MG PO (08:37)
[2024-07-27] MEDS: KCL 270 MEQ IV ×2 (08:37→12:55)
[2024-07-27] MEDS: BUSPAR 10 MG PO ×2 (08:37→16:09)
[2024-07-27] MEDS: NAMENDA 5 MG PO (08:37)
[2024-07-27] MEDS: LOW STRENGTH ASPIRIN 81 MG PO (08:37)
[2024-07-27] MEDS: VANCOCIN HCL 500 MG 100 IV (09:11)
--- NOTE | 2024-07-27 10:16 | CON.ONC ---
Consultation
-
Date Consultation Requested: 07/26/24
Date Consultation Performed: 07/27/24
Requesting Provider: Ap
Performing Provider: rizwan
Reason for Consultation: anemia
Impression
Impression
multifactorial anemia--stage 3a CKD + iron deficiency anemia
Plan
Plan
IV iron repletion-- given appropriate increment with 1 unit pRBC transfused unlikely significant hemolysis-- explained to that typically pRBC expected to sustain count for 6 weeks-- if no improvement in hgb >10gm/dl @ 6 weeks following IV iron
then candidate for EPO
Patient History
History of Present Illness
unfortunate 84yo male with hx of dementia and prior dvicnec of CVA admitted with fever and TME for which infectious w/u w/o bacterial source by cultures/ neg PLEX found with bilateral bilobar consolidation who with progressive hydration found with
anemia without obvious source of GI/ blood loss. He received 1 unit pRBCs with expected increment. His type/screen w/o abnormal antibody patterns. He is on antibiotic therapies for coverage of infectious source with intermittently recurring low
grade fever. CT imaging since admission notes no evidence nor metastatic disease or adenopathy/splenomegaly nor is there evidence on labs of lymphocytosis/monocytosis though ferritin storage in face of an inflammatory process is not elevated and
consistent measurement of GFR < 60
Past-Medical/Surgical History
HTN/dementia/depression
Patient Medication
�Medication �Instructions �Recorded �Confirmed �Last Taken �Type
acetaminophen 325 mg tablet 650 mg PO Q4H PRN temp >100.4 07/20/24 Unknown History
aspirin 81 mg tablet,delayed 81 mg PO DAILY 07/20/24 Unknown History
release
bisacodyl 10 mg rectal suppository 10 mg OK DAILY PRN if no result 07/20/24 Unknown History
from MOM
buspirone 10 mg tablet 10 mg PO TID 07/20/24 Unknown History
carvedilol 3.125 mg tablet 3.125 mg PO BID 07/20/24 Unknown History
clopidogrel 75 mg tablet (Plavix) 75 mg PO DAILY 07/20/24 Unknown History
cyanocobalamin (vitamin B-12) 1,000 mcg PO DAILY 07/20/24 Unknown History
1,000 mcg tablet
donepezil 10 mg tablet 10 mg PO HS 07/20/24 Unknown History
famotidine 20 mg tablet 20 mg PO DAILY 07/20/24 Unknown History
losartan 25 mg tablet 25 mg PO DAILY 07/20/24 Unknown History
magnesium hydroxide 400 mg/5 mL 30 ml PO HS PRN if no BM in 3 days 07/20/24 Unknown History
oral suspension (Milk of Magnesia)
memantine 5 mg tablet 5 mg PO BID 07/20/24 Unknown History
mirtazapine 7.5 mg tablet 7.5 mg PO HS 07/20/24 Unknown History
Active Medications
Generic Name Dose Route Start Last Admin
Trade Name Freq PRN Reason Stop Dose Admin
Acetaminophen 650 mg 07/21/24 00:30 07/26/24 23:23
Acetaminophen 325 Mg Tablet PO 08/18/24 00:29 650 mg
Q4HPRN PRN Administration
BURROWS/mild pain/temp > 100.4 F
Acetaminophen 650 mg 07/21/24 00:30 07/22/24 22:27
Acetaminophen 650 Mg Rectal Suppository RECTAL 08/18/24 00:29 650 mg
Q4HPRN PRN Administration
BURROWS/ mild pain/ temp >/= 100.4F
Aspirin 81 mg 07/26/24 12:00 07/27/24 08:37
Aspirin 81 Mg Chewable Tablet PO 08/23/24 11:59 81 mg
DAILY JUAN Administration
Buspirone HCl 10 mg 07/26/24 16:00 07/27/24 08:37
Buspirone 10 Mg Tablet PO 08/23/24 15:59 10 mg
TID JUAN Administration
Carvedilol 3.125 mg 07/21/24 08:00 07/27/24 08:37
Carvedilol 3.125 Mg Tablet PO 08/18/24 07:59 3.125 mg
BID JUAN Administration
Cefepime HCl 2,000 mg 07/26/24 14:00 07/27/24 02:21
Cefepime Hcl 2,000 Mg/12.5 Ml Vial IV 2,000 mg
Q12H JUAN Administration
Clopidogrel Bisulfate 75 mg 07/21/24 08:00 07/27/24 08:37
Clopidogrel 75 Mg Tablet PO 08/18/24 07:59 75 mg
DAILY JUAN Administration
Dextrose 12.5 grams 07/25/24 10:44
Dextrose 50% (0.5 Grams/Ml) 50 Ml Syringe IV 08/22/24 10:43
[id number] PRN
hypoglycemia
Protocol
Donepezil HCl 10 mg 07/21/24 22:00 07/26/24 22:28
Donepezil Hcl 10 Mg Tablet PO 08/18/24 21:59 10 mg
HS JUAN Administration
Glucagon 1 mg 07/25/24 10:44
Glucagon 1 Mg Vial IM 08/22/24 10:43
PRN PRN
hypoglycemia
Protocol
Vancomycin HCl 1 each/ Device 0 mls @ 0 mls/hr 07/26/24 13:20
IV
PER PROTOCOL JUAN
As Directed
Sodium Chloride 1,000 mls @ 100 mls/hr 07/26/24 13:30 07/26/24 23:17
Nss IV 1,000 mls
.Q10H JUAN Administration
Dextrose/Lactated Ringer's 1,000 mls @ 100 mls/hr 07/27/24 08:00 07/27/24 08:33
D5lr IV 1,000 mls
.Q10H JUAN Administration
Potassium Chloride 40 meq/ 270 mls @ 67.5 mls/hr 07/27/24 08:00 07/27/24 08:37
Sodium Chloride IV 07/27/24 15:59 270 mls
Q4H JUAN Administration
Vancomycin HCl 100 mls @ 100 mls/hr 07/27/24 10:00 07/27/24 09:11
Vancocin Hcl 500 Mg IV 07/27/24 10:59 100 mls
ONCE ONE Administration
Insulin Aspart 0 units 07/25/24 11:30 07/27/24 08:35
Insulin Aspart Low Resistance 300 Units/3 Ml Pen.Injctr SC 08/22/24 11:29 Not Given
AC JUAN
Protocol
Memantine 5 mg 07/21/24 08:00 07/27/24 08:37
Memantine 10 Mg Tablet PO 08/18/24 07:59 5 mg
BID JUAN Administration
Nifedipine 30 mg 07/25/24 08:00 07/27/24 08:37
Nifedipine 30 Mg Extended Release Tablet PO 08/22/24 07:59 30 mg
DAILY JUAN Administration
Ondansetron HCl 4 mg 07/21/24 00:30
Ondansetron 4 Mg/2 Ml Vial IV 08/18/24 00:29
Q6HPRN PRN
NAUSEA/VOMITING
Pantoprazole Sodium 40 mg 07/25/24 12:00 07/26/24 23:17
Pantoprazole Sodium 40 Mg/10 Ml Vial IV 08/22/24 11:59 40 mg
Q12H JUAN Administration
Sodium Chloride 0 flush 07/20/24 23:00 07/21/24 00:44
Sodium Chloride 0.9% (Flush) Syringe IV 08/17/24 22:59 1 flush
PER PROTOCOL JUAN Administration
Sodium Chloride 10 ml 07/25/24 12:00 07/26/24 23:17
Sodium Chloride 0.9% (Preservative Free) 10 Ml Vial IV 08/22/24 11:59 10 ml
Q12H JUAN Administration
Sterile Water 10 ml 07/26/24 14:00 07/27/24 02:21
Sterile Water For Injection 10 Ml Vial IV 08/23/24 13:59 10 ml
Q12H JUAN Administration
Review of Systems
-
Unable to obtain full review of systems at this time due to: Patient Non Verbal
History Source: Family
All Other Systems: Reviewed and Negative (other than as described in HPI)
Physical Exam
-
General: Appears Chronically Ill
HEENT: Moist Mucous Membranes
Cardiology: Normal Sinus Rhythm
Pulmonary: Clear
GI: Normal Bowel Sounds
Musculoskeletal: No Clubbing, No Cyanosis and No Edema
Neurology: Non Focal (limited--nonconversant--examined with )
Psych: Confused and Apparent Dementia
Labs
Lab Results
WBC 6.2 10^3/uL (4.8-10.8) 07/27/24 06:19
RBC 2.95 10^6/uL (4.70-6.10) L 07/27/24 06:19
Hgb 9.1 g/dL (13.0-18.0) L 07/27/24 06:19
Hct 25.8 % (39.0-52.0) L 07/27/24 06:19
MCV 87.5 fL (80.0-94.0) 07/27/24 06:19
MCH 30.8 pg (27.0-31.0) 07/27/24 06:19
MCHC 35.3 g/dL (33.0-37.0) 07/27/24 06:19
RDW 14.3 % (11.5-14.5) 07/27/24 06:19
Plt Count 270 10^3/uL (130-400) 07/27/24 06:19
MPV 9.3 fL (7.4-10.4) 07/27/24 06:19
Abs Immat Gran (auto) 0.1 10^3/uL (0-0.05) H 07/27/24 06:19
Absolute Neuts (auto) 4.7 10^3/uL (1.4-6.5) 07/27/24 06:19
Absolute Lymphs (auto) 1.0 10^3/uL (1.2-3.4) L 07/27/24 06:19
Absolute Monos (auto) 0.5 10^3/uL (0.1-0.6) 07/27/24 06:19
Absolute Eos (auto) 0.0 10^3/uL (0-0.7) 07/27/24 06:19
Absolute Basos (auto) 0.0 10^3/uL (0-0.2) 07/27/24 06:19
Immature Gran % 1.1 % (0-0.5) H 07/27/24 06:19
Neutrophils % 75.0 % (42.2-75.2) 07/27/24 06:19
Lymphocytes % 15.8 % (20.5-51.1) L 07/27/24 06:19
Monocytes % 7.4 % (1.7-9.3) 07/27/24 06:19
Eosinophils % 0.5 % (0-6) 07/27/24 06:19
Basophils % 0.2 % (0-2) 07/27/24 06:19
Creatinine 1.4 mg/dL (0.7-1.3) H 07/27/24 06:19
Vital Signs
Vital Signs
Temp Pulse Resp BP Pulse Ox
99.5 F 68 16 158/65 95
07/27/24 07:30 07/27/24 07:30 07/27/24 07:30 07/27/24 07:30 07/27/24 07:30
[2024-07-27 11:58] LABS: Glucose - Point of Care 222 mg/dl (70-99)
[2024-07-27] MEDS: NSS IV (12:04)
[2024-07-27] MEDS: NSS (PRESERVATIVE FREE) 10 ML IV (12:10)
[2024-07-27] MEDS: PROTONIX IV 40 MG IV (12:11)
--- NOTE | 2024-07-27 12:27 | W.PN.HOSP.TC ---
Today's Communication/Plan
-
replete potassium
IVF to cont
Abx to cont
CT cervical/lumbar
ID cosnult
Assessment / Plan
Assessment / Plan
84yo M with advanced dementia, started to worsen 10 years ago, poorly verbal on baseline, but was ambulating and interacting before his last admission to [facility], CAD, HTN, insomnia brought from SNF with fever and lethargy, found stercoral colitis,
LLL pneumonia and possible UTI
Patient was recently admitted to [facility] after the fall, initially was lethargic, but subsequently improved and was discharged to rehab, where he had developed lethargy again for 2 days before admission. Admitted to with concern for UTI
due to fevers, also found RLL pneumonia. MRI brain showed no new acute fidings. then patient improved and was awake, intercating, but still non-verbal while on hydration and Abx. Ucx grew no infection, so Abx switched to cover pneumonia. After
three days of improvement, patient developed worsening somnolence again with new fevers. Workup showed worsening RLL pneumonia with concern for aspiration. With worsened mentation neurologist was called.
A/P:
#Fever, cannot reliably differentiate between stercoral colitis, LLL CAP, most likely sepsis on admission
#microscopic Hematuria
Procalcitonin remains low
CT chest: Bilateral lower lobe opacification compatible with subsegmental atelectasis and tiny left pleural effusion. Cannot exclude pneumonia, particularly in the left lower lobe
follow up eventually with Urology, depending on GOC
legionella and S.pneumonia urinary Ag neg
No hydronephrosis on CT
Bcx NTD
Ucx neg
Repeat UA in 2-3 weeks depending on GOC
Sputum Cx if possible
Vanco/Zosyn restarted on 07/26/24
[facility]
COVID-19, Influenza PCR neg
#Anemia, NOREEN
PPI BID
With normal BUN and neg FOBT - unlikely GIB
Will montor CBC
Transfusion consent signed by - s/p 1 unit of PRBC on 07/26/24
Will cont DAPT since no over bleeding
iron IV completed 5 days
Hematology consult 2/2 elevated LDH and positive Croombs test
#Dysphagia
2/2 acute disease
Advance diet as per [facility]
#Acute metabolic encephalopathy on dementia, unspecified
As per -patient was mostly lethargic days before d/c from the previous hospital
TSH and cortisol AM WNL
CT head without acute findings
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
much improving mentation without psychiatric meds - will stop upon d/c
Psych consult: no changed to meds advised
Neurology - since patient cannot comply with MRI - CT cervical and thoracic.
With worsening condition appropriate to use contrast with sufficient hydration
#Rhabdomyolysis
most likely 2/2 spasticity
IVF and follow CPK
#Hypokalemia
#Hypernatremia
#KAITLIN on admission - resolved
most likely dehydration with poor oral intake
Follow and replete electrolytes
most likely 2/2 dehydration
D5W and follow BMP
#Essential HTN
hold losartan with KAITLIN
#Constipation
most likely 2/2 dehydration
IVF
enema
#Non-obstructing nephrolithiasis
hydrate
DVT ppx SCDs
DNR/DNI as per
I have spent at least 56min reviewing chart, test results, communicating with consultants and family and providing direct patient care
Anticipated Discharge: > 48 hours
Subjective/Interval History
-
Date of Service: July 27, 2024
Objective Data
-
Labs:
Laboratory Results
07/27/24
06:19
WBC 6.2
Hgb 9.1 L
Hct 25.8 L
Plt Count 270
Sodium 147 H
Potassium 3.2 L
Chloride 119 H
Carbon Dioxide 17 L
BUN 18
Creatinine 1.4 H
Glucose 120 H
Calcium 8.4
Total Bilirubin 0.7
AST 118 H
ALT 55 H
Alkaline Phosphatase 88
Vital Signs:
Vital Signs
Temp Pulse Resp BP Pulse Ox
97.3 F 68 16 158/65 95
07/27/24 11:30 07/27/24 07:30 07/27/24 07:30 07/27/24 07:30 07/27/24 07:30
I&O
07/26/24 07/27/24 07/28/24
06:59 06:59 06:59
Intake Total 1370 / 1370 250 / 250
Output Total 1500 / 1500 750 / 750
Balance -130 / -130 -500 / -500
Review of Systems
-
Unable to obtain full review of systems at this time due to: Acuity
Physical Exam
-
Musculoskeletal: No Clubbing, No Cyanosis, Edema, Right Lower Extrem (on foot) and Edema, Left Lower Extrem
Neuro: Tremors (LLE) and Other (lethargic, spasticity on b/l UE)
[2024-07-27] MEDS: NOVOLOG FLEXPEN-LOW RESISTANCE 2 UNITS SC (12:53)
--- NOTE | 2024-07-27 13:27 | CON.ID ---
Consultation
-
Date/Time Consultation Requested: 07/27/2024 0602
Date/Time Consultation Performed: 07/27/2024 1315
Requesting Provider: Ap
Performing Provider: [place]
Reason for Consultation: Fever
Chief Complaint / Past History
History of Present Illness
Itz Adame is an 84-year-old man with a significant past medical history of advanced dementia being evaluated at the request of Dr. De Souza in regards to fever. History is obtained from chart review alone as the patient could not provide
any meaningful history for me.
According to reviewed notes the patient has had dementia for at least the past 10 years and is poorly verbal at baseline. He previously was admitted to [facility], and prior to that was ambulating. He presents to [facility] on 07/20 following reported change in mental status and fever noted at his nursing facility. Workup here initially revealed a low-grade leukocytosis, suspected right lower lobe pneumonia and possible stercoral colitis. Since admission, he
has had intermittent fevers, and Infectious Diseases is asked to comment upon further antimicrobial management.
At this time, patient is nonverbal for me and provides no additional history.
Past History
Additional Past Medical History:
Advanced dementia
CAD
HTN
Insomnia
Past Surgical History: Other (Unknown)
Allergy History:
No Known Allergies Allergy (Unverified 07/20/24 21:47)
Current Antibiotics:
Vancomycin 07/22 - present
Cefepime 07/26 - present
Unasyn 07/24 - 07/26
Doxycycline 07/24 - 07/25
Zosyn 07/21 - 07/24
Ceftriaxone 07/20
Social History
Tobacco: Other (Unknown)
Alcohol: Other (Unknown)
Drug: Other (Unknown)
Personal:
Living: Long-Term
Employment: Not Employed
Family History
Family History: Unable to Obtain
Review of Systems
Vital Signs
Temp Pulse Resp BP Pulse Ox
97.3 F 68 16 158/65 95
07/27/24 11:30 07/27/24 07:30 07/27/24 07:30 07/27/24 07:30 07/27/24 07:30
Physical Exam
Physical Exam
Constitutional: No Acute Distress, Comfortable, Chronically Ill and Non-toxic
Head: Normocephalic
Eyes: Pupils Equal, No Conjunctival Hemorrhage and Sclera Anicteric
Oral: No Thrush and No Ulcers
Cardiovascular: S1/S2; Negative S3/S4 or Murmur
Pulmonary: Coarse and Non Labored; Negative Rhonchi
Gastrointestinal: Soft, Non Tender and Non Distended
Genito-Urinary: Llamas and Clear Urine; Negative Hematuria
Extremities: Negative Edema, Cyanosis or Erythema
Skin: Warm and Dry; Negative Rash or Jaundice
Wound: None
Neurological: Other (Nonverbal for me.); Negative Meningeal Signs
.
Lab / Diagnostic Study Results
07/27/24 06:19
07/27/24 06:19
Abs Immat Gran (auto) 0.1 10^3/uL (0-0.05) H 07/27/24 06:19
Absolute Neuts (auto) 4.7 10^3/uL (1.4-6.5) 07/27/24 06:19
Absolute Lymphs (auto) 1.0 10^3/uL (1.2-3.4) L 07/27/24 06:19
Absolute Monos (auto) 0.5 10^3/uL (0.1-0.6) 07/27/24 06:19
Absolute Basos (auto) 0.0 10^3/uL (0-0.2) 07/27/24 06:19
Immature Gran % 1.1 % (0-0.5) H 07/27/24 06:19
Neutrophils % 75.0 % (42.2-75.2) 07/27/24 06:19
Lymphocytes % 15.8 % (20.5-51.1) L 07/27/24 06:19
Monocytes % 7.4 % (1.7-9.3) 07/27/24 06:19
Eosinophils % 0.5 % (0-6) 07/27/24 06:19
Basophils % 0.2 % (0-2) 07/27/24 06:19
Lactic Acid 1.5 mmol/L (0.7-2.0) 07/20/24 21:34
Procalcitonin 0.13 ng/ml (0.0-0.25) 07/26/24 11:49
Ur Squamous Epith Cells 16-20 /LPF (Few) 07/26/24 23:48
Microbiology Results
Micro:
07/26/24 13:20 Blood Culture - Preliminary
Blood/Venous No Growth in 24 hours- Final report to follow
07/26/24 12:50 Blood Culture - Preliminary
Blood/Venous No Growth in 24 hours- Final report to follow
07/26/24 23:48 Urine Culture - Pending
Urine
07/20/24 21:45 Blood Culture - Final
Blood/Venous No Growth - Final Report
07/20/24 21:34 Blood Culture - Final
Blood/Venous No Growth - Final Report
07/23/24 12:13 MRSA Screen - Final
Nose No Methicillin Resistant Staphylococcus aureus isolated.
07/20/24 21:34 Urine Culture - Final
Urine
07/21/24 21:34 Legionella Urinary Antigen - Final
Urine Negative for Legionella pneumophila Serogroup 1 antigen.
A negative result does not rule out the possiblity of
Legionella infection due to other serogroups or species of
Legionella. Clinical correlation is recommended.
Streptococcus pneumoniae Antigen (M - Final
Negative for Streptococcus pneumoniae antigen.
A negative result does not exclude infection with
Streptococcus pneumoniae. Clinical correlation is
recommended.
07/20/24 21:34 Influenza Types A & B (BELÉN) - Final
Nasal Swab Negative for Influenza A & B, NAAT
Negative results must be combined with clinical observations
and patient history.
Nucleic Acid Amplification test (NAAT)performed on the
[employer] platform.
Imaging:
07/26/24 CXR (portable): Interval development of patchy parenchymal opacity in the left lower lobe and right perihilar region.
07/23/2024 CT chest without contrast: Bilateral lower lobe opacifications compatible with subsegmental atelectasis and tiny left pleural effusion. Cannot exclude pneumonia particularly in the left lower lobe. Small bilateral peripheral lung
parenchymal groundglass opacities noted. Mild cardiomegaly seen. Please see full dictation for additional detail.
07/23/24 MRI brain without contrast: No acute infarct seen. Old infarct with encephalomalacia and gliosis posterior left MCA distribution. Overall atrophy seen.
07/22/24 CT head without contrast: No acute intracranial abnormalities noted.
07/21/2024 CT abdomen/pelvis without contrast: Large volume stool filling the descending rectum, with mild distention of the rectum with some suspected mild perirectal stranding. Findings are suggestive of stercoral colitis. No intestinal
obstruction or free air. Please see full dictation for additional detail.
Assessment / Plan
Intermittent fevers; overall down and improved from admission.
Leukocytosis; improved
- Current resolution of prior left shift
Encephalopathy
Hypernatremia
Elevated CK
Normal procalcitonin
Advanced dementia
CAD
HTN
Insomnia
Recommendations:
Based on chart review, prior fevers have improved, with overall improvement in temperature curve.
Given clinical presentation, suspect a component of recurrent aspiration.
Most recent procalcitonin normal, which speaks against a bacterial process.
Would favor discontinuing antibiotics with close clinical observation.
Strict aspiration precautions. May consider speach eval.
Neurology consultation noted. Agree with LP if exhaustive workup desired, although doubt an infectious etiology to patient's current clinical presentation.
[2024-07-27 13:37] LABS: Creatine Phosphokinase 3498 U/L (55-170)
[2024-07-27 16:00] VITALS: BP 131/61
[2024-07-27] MEDS: FERRLECIT 110 MG IV (16:09)
[2024-07-27 16:33] LABS: Glucose - Point of Care 158 mg/dl (70-99)
[2024-07-27] MEDS: NOVOLOG FLEXPEN-LOW RESISTANCE 1 UNITS SC (17:18)
[2024-07-27 21:42] LABS: Glucose - Point of Care 120 mg/dl (70-99)
[2024-07-27] MEDS: NAMENDA PO (21:43)
[2024-07-27] MEDS: BUSPAR PO (21:44)
[2024-07-27] MEDS: COREG PO (21:44)
[2024-07-27] MEDS: ARICEPT PO (21:44)
[2024-07-27 23:25] VITALS: BP 144/69
[2024-07-28] MEDS: PROTONIX IV 40 MG IV ×2 (00:36→12:40)
[2024-07-28] MEDS: NSS (PRESERVATIVE FREE) 10 ML IV ×2 (00:36→12:39)
[2024-07-28] MEDS: COREG PO ×2 (01:23→21:58)
[2024-07-28] MEDS: ARICEPT PO (01:24)
[2024-07-28] MEDS: NAMENDA PO (01:24)
[2024-07-28] MEDS: BUSPAR PO ×2 (01:24→15:48)
[2024-07-28 07:30] VITALS: BP 162/70
[2024-07-28 08:24] LABS: % Basophils 0.2 % (0-2); % Eosinophils 1.2 % (0-6); % Immature Granulocytes 1.4 % (0-0.5); % Lymphocytes 16.7 % (20.5-51.1); % Monocytes 8.5 % (1.7-9.3); Absolute Eosinophils 0.1 10^3/uL (0-0.7); Absolute Immature Granulocytes 0.1 10^3/uL (0-0.05); Absolute Monocytes 0.5 10^3/uL (0.1-0.6); Absolute Neutrophils 4.2 10^3/uL (1.4-6.5); Hematocrit 24.7 % (39.0-52.0); Hemoglobin 8.7 g/dL (13.0-18.0); Mean Corp Hgb Conc. 35.2 g/dL (33.0-37.0); Mean Corpuscular Hgb 31.4 pg (27.0-31.0); Mean Corpuscular Volume 89.2 fL (80.0-94.0); Mean Platelet Volume 9.5 fL (7.4-10.4); Nucleated Red Blood Cells % 0 % (-); Platelet Count 311 10^3/uL (130-400); Red Blood Cell Count 2.77 10^6/uL (4.70-6.10); Red Cell Dist. Width 14.7 % (11.5-14.5); White Blood Cell Count 5.9 10^3/uL (4.8-10.8)
[2024-07-28] MEDS: D5LR 1000 IV (08:30)
[2024-07-28] MEDS: PROCARDIA XL (EXTENDED RELEASE) 30 MG PO (08:30)
[2024-07-28] MEDS: LOW STRENGTH ASPIRIN 81 MG PO (08:31)
[2024-07-28] MEDS: NAMENDA 5 MG PO (08:31)
[2024-07-28] MEDS: BUSPAR 10 MG PO (08:31)
[2024-07-28] MEDS: COREG 3.125 MG PO (08:31)
[2024-07-28] MEDS: PLAVIX 75 MG PO (08:31)
[2024-07-28 08:39] LABS: Glucose - Point of Care 133 mg/dl (70-99)
[2024-07-28 09:21] LABS: ALT (SGPT) 54 U/L (0-50); AST (SGOT) 109 U/L (17-59); Albumin 2.4 g/dl (3.5-5.0); Alkaline Phosphatase 88 U/L (38-126); Blood Urea Nitrogen 13 mg/dl (9-20); Calcium 8.2 mg/dl (8.4-10.2); Carbon Dioxide 19 mmol/L (22-30); Chloride 120 mmol/L (98-107); Creatine Phosphokinase 2590 U/L (55-170); Estimated Creatinine Clearance 31 ml/min; Glucose 145 mg/dl (70-99); Potassium 3.4 mmol/L (3.5-5.1); Sodium 147 mmol/L (135-145); Total Bilirubin 0.5 mg/dl (0.2-1.3); Total Protein 4.9 g/dl (6.3-8.2); eGFR 54.85
[2024-07-28] MEDS: NOVOLOG FLEXPEN-LOW RESISTANCE SC ×3 (09:35→17:19)
--- NOTE | 2024-07-28 10:19 | STATUS ---
SITUATION:
BACKGROUND:
ASSESSMENT:
RECOMMENDATION:
--- NOTE | 2024-07-28 10:19 | CM ---
Patient seen at bedside
EEG today
careport referral updated
PLAN: [facility] when medically stable
Report #: [phone] Fax #: [phone]
--- NOTE | 2024-07-28 10:57 | EEG.RPT ---
Electroencephalogram Report
Recording
Date of EE07/28/24
Type of EEG: Routine
Length of EEG recordin minutes
Done with Video Recording: Yes
Patient Status: Inpatient
Recording Conditions: Awake and Drowsy
Hyperventilation Performed: No
Photic Stimulation Performed: Yes
Report
LESS THAN 1 HOUR EEG REPORT
LESS THAN 1 HOUR EEG INTERPRETATION:
Moderately abnormal EEG for age in wakefulness through drowsiness due to triphasic waves and diffuse bihemispheric slowing
CLINICAL CORRELATION:
This study was suggestive of a generalizing process which is most likely secondary to metabolic disturbance causing diffuse cortical dysfunction without focal abnormality. No seizures were recorded.
Clinical correlation is advised.
METHODS:
A 21 channel digitized electroencephalogram (EEG) was performed in the clinical neurophysiology lab. The 10/20 international system of electrode placement was used with ECG and lateral/vertical eye movements recorded. Video was recorded. The
[employer] quantitative review system was utilized.
QUALITY OF STUDY:
Fair
ELECTROENCEPHALOGRAPHER IMPRESSION(S):
Background
Amplitude: Unremarkable
Anterior-Posterior Organization: Fair
Maximum: Theta, usually delta
Asymmetry: None
Sleep
Drowsiness present
Photic Stimulation
Failed to activate the record.
ECG
Normal sinus rhythm
Abnormal EEG activity
Frequent frontal predominant, at times generalizing, high amplitude triphasic waves which occasionally occur in trains lasting up to 1 second and a periodicity of 1 second
--- NOTE | 2024-07-28 11:07 | W.PN.ID1 ---
Date of Service
Date of Service: July 28, 2024
Today's Communication
Observe off antibiotics.
Assessment / Plan
Intermittent fevers; overall down and improved from admission.
Leukocytosis; improved
- Current resolution of prior left shift
Encephalopathy
Hypernatremia
Elevated CK
Normal procalcitonin
Advanced dementia
CAD
HTN
Insomnia
Recommendations:
Patient remains afebrile.
Given clinical presentation, suspect a component of recurrent aspiration.
Most recent procalcitonin normal, which speaks against a bacterial process.
Observe off antibiotics with close clinical observation.
Strict aspiration precautions. May consider speach eval.
Neurology consultation noted. Agree with LP if exhaustive workup desired, although doubt an infectious etiology to patient's current clinical presentation.
Chief Complaint
-: Fever
Subjective / Review of Systems
Patient seen and examined. No fevers overnight.
Vital Signs / Physical Exam
Vital Signs
Vital Signs
Temp Pulse Resp BP Pulse Ox
99.2 F 70 18 162/70 99
07/28/24 07:30 07/28/24 07:30 07/28/24 07:30 07/28/24 07:30 07/28/24 07:30
Physical Exam
Constitutional: Comfortable, Chronically Ill and Non-toxic
Cardiovascular: S1/S2; Negative S3/S4 or Murmur
Pulmonary: Non Labored
Gastrointestinal: Soft and Non Tender
Psychological: Calm
Objective Data
Lab Data
Lab Results
07/28/24 06:22
07/28/24 06:22
Estimated Creat Clear 31 ml/min 07/28/24 06:22
Lactic Acid 1.5 mmol/L (0.7-2.0) 07/20/24 21:34
Total Bilirubin 0.5 mg/dl (0.2-1.3) 07/28/24 06:22
AST 109 U/L (17-59) H 07/28/24 06:22
ALT 54 U/L (0-50) H 07/28/24 06:22
Alkaline Phosphatase 88 U/L (38-126) 07/28/24 06:22
Most recent labs reviewed.
Micro Results:
07/26/24 23:48 Urine Culture - Final
Urine NO GROWTH
07/26/24 13:20 Blood Culture - Preliminary
Blood/Venous No Growth in 24 hours- Final report to follow
07/26/24 12:50 Blood Culture - Preliminary
Blood/Venous No Growth in 24 hours- Final report to follow
07/20/24 21:45 Blood Culture - Final
Blood/Venous No Growth - Final Report
07/20/24 21:34 Blood Culture - Final
Blood/Venous No Growth - Final Report
07/23/24 12:13 MRSA Screen - Final
Nose No Methicillin Resistant Staphylococcus aureus isolated.
07/20/24 21:34 Urine Culture - Final
Urine
07/21/24 21:34 Legionella Urinary Antigen - Final
Urine Negative for Legionella pneumophila Serogroup 1 antigen.
A negative result does not rule out the possiblity of
Legionella infection due to other serogroups or species of
Legionella. Clinical correlation is recommended.
Streptococcus pneumoniae Antigen (M - Final
Negative for Streptococcus pneumoniae antigen.
A negative result does not exclude infection with
Streptococcus pneumoniae. Clinical correlation is
recommended.
07/20/24 21:34 Influenza Types A & B (BELÉN) - Final
Nasal Swab Negative for Influenza A & B, NAAT
Negative results must be combined with clinical observations
and patient history.
Nucleic Acid Amplification test (NAAT)performed on the
[employer] platform.
Imaging:
07/26/24 CXR (portable): Interval development of patchy parenchymal opacity in the left lower lobe and right perihilar region.
07/23/2024 CT chest without contrast: Bilateral lower lobe opacifications compatible with subsegmental atelectasis and tiny left pleural effusion. Cannot exclude pneumonia particularly in the left lower lobe. Small bilateral peripheral lung
parenchymal groundglass opacities noted. Mild cardiomegaly seen. Please see full dictation for additional detail.
07/23/24 MRI brain without contrast: No acute infarct seen. Old infarct with encephalomalacia and gliosis posterior left MCA distribution. Overall atrophy seen.
07/22/24 CT head without contrast: No acute intracranial abnormalities noted.
07/21/2024 CT abdomen/pelvis without contrast: Large volume stool filling the descending rectum, with mild distention of the rectum with some suspected mild perirectal stranding. Findings are suggestive of stercoral colitis. No intestinal
obstruction or free air. Please see full dictation for additional detail.
--- NOTE | 2024-07-28 11:12 | W.PN.ONC ---
Today's Communication / Plan
-
IV iron
Impression
Impression
multifactorial anemia--stage 3a CKD + iron deficiency anemia
Plan
Plan
s/p 1 unit pRBC 07/26/24 followed by appropriate rise in hgb-- hemolysis less likely but haptoglobin pending. Fecal occult blood negative-- IV iron while inpatient--Daily CBC-- anticipate follow-up in office in about 1 month, will need repeat CBC and
iron studies-- if no improvement in hgb >10gm/dl @ 6 weeks following IV iron can consider EPO
Subjective/Objective
Subjective/Objective
Nonverbal. Resting in bed, does not respond to questions or open eyes with verbal stimuli. EEG setting up. Extremities flexed.
Vital Signs:
Vital Signs
Temp Pulse Resp BP Pulse Ox
99.2 F 70 18 162/70 99
07/28/24 07:30 07/28/24 07:30 07/28/24 07:30 07/28/24 07:30 07/28/24 07:30
Lab Results:
Laboratory Data
WBC 5.9 10^3/uL (4.8-10.8) 07/28/24 06:22
Hgb 8.7 g/dL (13.0-18.0) L 07/28/24 06:22
Plt Count 311 10^3/uL (130-400) 07/28/24 06:22
eGFR 54.85 07/28/24 06:22
[2024-07-28 12:05] LABS: Glucose - Point of Care 145 mg/dl (70-99)
[2024-07-28] MEDS: FERRLECIT 110 MG IV (14:52)
[2024-07-28 16:00] VITALS: BP 170/73
[2024-07-28 17:15] LABS: Glucose - Point of Care 119 mg/dl (70-99)
--- NOTE | 2024-07-28 17:19 | W.PN.HOSP.TC ---
Today's Communication/Plan
-
Hold ASA, Plavix
Hold Aricept, BuSpar and Namenda
Assessment / Plan
Assessment / Plan
84-year-old with advanced dementia brought in from SNF with fever and lethargy. Patient was recent admitted to [facility] after a fall was lethargic subsequently improved and was discharged to rehab. She developed lethargy again 2 days
prior to admission. Admitted to hospital for UTI/pneumonia. MRI of the brain with no acute changes. Patient improved was awake and interacting with normal bowel with hydration and antibiotics. Urine culture negative antibiotic switched to cover
pneumonia 3 days after improvement developed somnolence again workup showed right lower lobe pneumonia with concern of aspiration
07/23/2024 CT of the chest-bilateral lower lobe consolidation compatible with subsegmental atelectasis with tiny left pleural effusion. Cannot exclude pneumonia particularly in the left lower lobe small bilateral peripheral lung parenchymal
groundglass opacities. Mild cardiomegaly
07/23/2024 MRI- no acute infarct 0ld infarct with encephalomalacia and gliosis involving posterior left MCA distribution. Mild sinusitis.
07/21/2024-CT abdomen pelvis-large volume stool filling the descending rectum, mild distention of the rectum with some suspected mild perirectal stranding findings consistent with stercoral colitis.
07/27/2024-CT of the T-spine-no vertebral compression deformity. Minor disc space narrowing. No canal stenosis or foraminal stenosis or abnormal enhancement.
07/27/2024-CT of the E-xqikw-kxdggtakdboy changes incidental 70 to 80% stenosis of the proximal left ICA nonspecific pneumonitis in the upper lung zones.
07/28/24- EEG- NO Sz.
07/28/24- ECHO- Normal Biv size and function . No regional WMA.
pt's pupils equal and reactive
will not wake up with name calling, shuts eyes closely.
right leg flexed hip
edema right foot
# TME/delirium
Unclear reason
MRI negative for stroke
Treating left lower lobe pneumonia aspiration versus other
Neurology consulted
Blood cultures and urine cultures negative
Was treated with ceftriaxone on 07/20, Zosyn 07/21-07/24, doxycycline and Unasyn 07/24- 07/26 , 07/27 - Vanco and Cefepime- All discontinued.
COVID and influenza negative
TSH and cortisol within normal limits
Ammonia level normal
Speech evaluation noted- Keep NPO
Psychiatry consulted-no changes in medicines
Neurology consulted
EEG neg
Will Hold antiplatelets in anticipation of LP
# Edema right foot - USS
# Anemia
Negative FOBT
Transfused with 1 unit of blood 07/26/24
Completed 5 days of IV iron for NOREEN
Hematology eval noted
# Hypokalemia-follow. Replace as needed
# Hypernatremia-on hypotonic IV fluids
# Acute kidney injury-follow creatinine with IV fluids
# Abnormal carotid on CT- ultrasound with more than 70% stenosis. OP Vascular eval discussed with son
# Rhabdomyolysis-continue IV fluids. Follow CPK
# Elevated AST and ALT-likely secondary to rhabdo
# Constipation-bowel regimen
# Dysphagia-speech evaluation ongoing. Aspiration precautions. NPO
# Hypertension-hold losartan. Continue Coreg 3.125 twice daily and nifedipine 30 mg daily (while off of losartan)
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
# Coronary artery disease-continue Coreg, hold aspirin
# Nonobstructive nephrolithiasis
# Advanced dementia-for 2 years . Hold Aricept, memantine.BuSpar ( for behavior disturbance)
# GERD-PPI
# Hypoalbuminemia
# DVT prophylaxis-Lovenox
# DNR/DNI
Detailed discussion with son at bedside he stated that patient has a history of dementia for the past 2 years Saqib started on BuSpar as outpatient and the family believes that he started declining after that. I broached palliative care and hospice
but sounds like family wants to proceed with workup. Discussed about holding aspirin and Plavix and getting LP Will hold her medicines except antihypertensives
Anticipated Discharge: > 48 hours
Subjective/Interval History
-
Date of Service: July 28, 2024
Objective Data
-
Labs:
Laboratory Results
07/28/24
06:22
WBC 5.9
Hgb 8.7 L
Hct 24.7 L
Plt Count 311
Sodium 147 H
Potassium 3.4 L
Chloride 120 H
Carbon Dioxide 19 L
BUN 13
Creatinine 1.3
Glucose 145 H
Calcium 8.2 L
Total Bilirubin 0.5
AST 109 H
ALT 54 H
Alkaline Phosphatase 88
Vital Signs:
Vital Signs
Temp Pulse Resp BP Pulse Ox
98.8 F 70 18 170/73 95
07/28/24 16:00 07/28/24 16:00 07/28/24 16:00 07/28/24 16:00 07/28/24 16:00
I&O
07/27/24 07/28/24 07/29/24
06:59 06:59 06:59
Intake Total 250 / 250 240 / 240
Output Total 750 / 750 1800 / 1800
Balance -500 / -500 -1560 / -1560
[2024-07-28] MEDS: LOVENOX 30 MG SC (18:41)
[2024-07-28 23:10] VITALS: BP 164/48
[2024-07-29] MEDS: D5LR IV ×2 (00:18→18:00)
[2024-07-29] MEDS: NSS (PRESERVATIVE FREE) 10 ML IV ×2 (00:19→12:37)
[2024-07-29] MEDS: PROTONIX IV 40 MG IV ×2 (00:19→12:37)
[2024-07-29] MEDS: D5LR 1000 IV (00:19)
[2024-07-29] MEDS: TYLENOL/FEVERALL 650 MG RECTAL (00:19)
[2024-07-29 01:00] LABS: Glucose - Point of Care 123 mg/dl (70-99)
[2024-07-29 02:17] LABS: Haptoglobin 263 mg/dL (30-200)
[2024-07-29 05:38] LABS: Hematocrit 25.1 % (39.0-52.0); Hemoglobin 8.8 g/dL (13.0-18.0); Mean Corp Hgb Conc. 35.1 g/dL (33.0-37.0); Mean Corpuscular Hgb 31.3 pg (27.0-31.0); Mean Corpuscular Volume 89.3 fL (80.0-94.0); Mean Platelet Volume 9.4 fL (7.4-10.4); Platelet Count 323 10^3/uL (130-400); Red Blood Cell Count 2.81 10^6/uL (4.70-6.10); Red Cell Dist. Width 14.9 % (11.5-14.5)
[2024-07-29 06:08] LABS: NT-proBNP 5650 pg/ml
[2024-07-29 06:13] LABS: ALT (SGPT) 52 U/L (0-50); AST (SGOT) 87 U/L (17-59); Albumin 2.5 g/dl (3.5-5.0); Alkaline Phosphatase 72 U/L (38-126); Blood Urea Nitrogen 12 mg/dl (9-20); Calcium 8.5 mg/dl (8.4-10.2); Carbon Dioxide 23 mmol/L (22-30); Chloride 116 mmol/L (98-107); Creatine Phosphokinase 883 U/L (55-170); Estimated Creatinine Clearance 34 ml/min; Glucose 123 mg/dl (70-99); Potassium 3.2 mmol/L (3.5-5.1); Sodium 146 mmol/L (135-145); Total Bilirubin 0.6 mg/dl (0.2-1.3); eGFR > 60.00
--- NOTE | 2024-07-29 06:23 | W.PN.UPDATE ---
Update Note
Progress Note Update
RN reached out to provider regarding pts RR 20 and breath sounds becoming more rhonchous but still remains RA 96%- pt still lethargic with minimal staff interaction. Am labs drawn- BNP added- 5650, CPK down to 883- Fluids decreased to 60ml/hr and
cxr ordered for the AM.�
[2024-07-29 07:18] VITALS: BP 136/83
[2024-07-29 07:25] LABS: Glucose - Point of Care 124 mg/dl (70-99)
[2024-07-29] MEDS: NOVOLOG FLEXPEN-LOW RESISTANCE SC ×3 (07:53→17:48)
[2024-07-29] MEDS: KCL 270 MEQ IV (08:28)
--- NOTE | 2024-07-29 08:41 | W.PN.ONC2 ---
Today's Communication / Plan
-
.
Impression
Impression
multifactorial anemia--stage 3a CKD + iron deficiency anemia s/p 1 UPRBC during hospitalization on 07/26 and ferrlicet x 4 doses
TUAN IgG positive, compliment negative 07/26, clinically not significant with elevated haptoglobin and normal retic count
Heme stool negative x 2 on 07/24 & 07/25
Occlusive DVT in the right cephalic vein
pneumonia on CXR 07/29
stercoral colitis
Plan
Plan
transfuse Hgb <7 or as needed for symptomatic anemia
hold off on further parenteral iron in setting of active infection
symptom management RUE DVT with elevation, warm compresses
Currently on DVT ppx, Would consider therapeutic enoxaparin in the absence of bleeding
Will need to assess fall and bleeding risk closer to discharge to determine duration of anticoagulation
Family member at bedside provided with updates and questions answered
Subjective/Objective
Subjective
appears comfortable
Vital Signs:
Vital Signs
Temp Pulse Resp BP Pulse Ox
99.5 F 66 18 136/83 94
07/29/24 07:18 07/29/24 07:18 07/29/24 07:18 07/29/24 07:18 07/29/24 07:18
Lab Results:
Laboratory Data
WBC 6.0 10^3/uL (4.8-10.8) 07/29/24 05:26
Hgb 8.8 g/dL (13.0-18.0) L 07/29/24 05:26
Plt Count 323 10^3/uL (130-400) 07/29/24 05:26
eGFR > 60.00 07/29/24 05:26
Physical Exam
HEENT: Moist Mucous Membranes; No Jaundice
Pulmonary: Other (unlabored)
GI: Soft
Extremities: Edema (RUE)
Neuro: Other (unwilling or unable to follow commands or answer questions)
[2024-07-29] MEDS: PROCARDIA XL (EXTENDED RELEASE) PO (09:25)
[2024-07-29] MEDS: LOW STRENGTH ASPIRIN PO (09:25)
[2024-07-29] MEDS: COREG PO ×2 (09:25→21:05)
--- NOTE | 2024-07-29 10:40 | W.PN.UPDATE ---
Update Note
Progress Note Update
Patient seen at bedside, sleeping and did not wake for me, chart reviewed, discussed with staff. No agitation reported. Appears to be a plan for LP with most meds held at this time.
Impression/Recommendation: Advanced dementia, progressive; TME - meds on hold at this time. Psych will sign off, call or reconsult with any new or immediate concerns.
[2024-07-29 11:57] LABS: Glucose - Point of Care 147 mg/dl (70-99)
--- NOTE | 2024-07-29 12:19 | W.PN.HOSP.TC ---
Today's Communication/Plan
-
Updated . Shared my concern that he may be aspirating constantly. She requested speech eval and we did discuss that speech has been following every day. He was fed and I think he aspirated and that likely made him lethargic. Today he seems
to be a little bit awake after the antibiotics.
was made aware that if he constantly aspirates it may not be a good sign. Feeding tube was discussed and she does not want that. Again I do not recommend feeding tube but was made aware that there was an option available.
Will get lumbar puncture to complete the workup since we do not have an answer yet.
Continue to hold Aricept, Namenda and BuSpar
Lovenox treatment dose ultrasound of the right lower extremity
Poor Prognosis explained
Continue work up per family.
I did broach palliative care/Hospice with son yesterday
Assessment / Plan
Assessment / Plan
84-year-old with advanced dementia brought in from SNF with fever and lethargy. Patient was recent admitted to [facility] after a fall was lethargic subsequently improved and was discharged to rehab. She developed lethargy again 2 days
prior to admission. Admitted to hospital for UTI/pneumonia. MRI of the brain with no acute changes. Patient improved was awake and interacting with normal bowel with hydration and antibiotics. Urine culture negative antibiotic switched to cover
pneumonia 3 days after improvement developed somnolence again workup showed right lower lobe pneumonia with concern of aspiration
07/23/2024 CT of the chest-bilateral lower lobe consolidation compatible with subsegmental atelectasis with tiny left pleural effusion. Cannot exclude pneumonia particularly in the left lower lobe small bilateral peripheral lung parenchymal
groundglass opacities. Mild cardiomegaly
07/23/2024 MRI- no acute infarct 0ld infarct with encephalomalacia and gliosis involving posterior left MCA distribution. Mild sinusitis.
07/21/2024-CT abdomen pelvis-large volume stool filling the descending rectum, mild distention of the rectum with some suspected mild perirectal stranding findings consistent with stercoral colitis.
07/27/2024-CT of the T-spine-no vertebral compression deformity. Minor disc space narrowing. No canal stenosis or foraminal stenosis or abnormal enhancement.
07/27/2024-CT of the A-wzoue-ibqfiklnyubq changes incidental 70 to 80% stenosis of the proximal left ICA nonspecific pneumonitis in the upper lung zones.
07/28/24- EEG- NO Sz.
07/28/24- ECHO- Normal Biv size and function . No regional WMA.
07/29/2024-new moderate to severe groundglass opacity in the left upper lobe and mild groundglass opacity in the right upper lobe-new bilateral upper lobe pneumonia. Albuterol pulmonary edema less likely. Moderate subpleural airspace consolidation
in the left lower lobe unchanged
07/28/2024-occlusive DVT in the right cephalic vein
07/28/2024-more than 70% stenosis of the left carotid bulb, soft plaque. Calcified plaque in the right carotid bulb less than 50% stenosis
pt's pupils equal and reactive
Patient restless opens eyes
right leg flexed hip
edema right foot,mild edema of the right hand
# TME/delirium
Unclear reason
MRI negative for stroke
Bilateral pneumonia-likely aspiration pneumonia
Neurology consulted
Blood cultures and urine cultures negative
Was treated with ceftriaxone on 07/20, Zosyn 07/21-07/24, doxycycline and Unasyn 07/24- 07/26 , 07/27 - Vanco and Cefepime- All discontinued. 07/29/2024- Zosyn started.
COVID and influenza negative
TSH and cortisol within normal limits
Ammonia level normal
Speech evaluation noted- Keep NPO
Psychiatry consulted-no changes in medicines
Neurology consulted
EEG neg
Will Hold antiplatelets in anticipation of LP
# Edema right foot - USS pending
Cephalic vein thrombus right arm
Add Lovenox
# Anemia
Negative FOBT
Transfused with 1 unit of blood 07/26/24
Completed 5 days of IV iron for NOREEN
Hematology eval noted
# Hypokalemia-follow. Replace as needed
# Hypernatremia-on hypotonic IV fluids
# Acute kidney injury-cut back on IV fluids.
# Abnormal carotid on CT- ultrasound with more than 70% stenosis. OP Vascular eval discussed with son
# Rhabdomyolysis-continue IV fluids low rate. Follow CPK
# Elevated AST and ALT-likely secondary to Rhabdo
# Constipation-bowel regimen
# Dysphagia-speech evaluation ongoing. Aspiration precautions. NPO
# Hypertension-hold losartan. Continue Coreg 3.125 twice daily and nifedipine 30 mg daily (while off of losartan)
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
# Coronary artery disease-continue Coreg, hold aspirin
# Nonobstructive nephrolithiasis
# Advanced dementia-for 2 years . Hold Aricept, memantine.BuSpar ( for behavior disturbance)
# GERD-PPI
# Hypoalbuminemia
# DVT prophylaxis-Lovenox
# DNR/DNI
Last day of ASA, Plavix- 07/28/24
D/W RN
D/W Heme
Updated . Shared my concern that he may be aspirating constantly. She requested speech eval and we did discuss that speech has been following every day. He was fed and I think he aspirated and that likely made him lethargic. Today he seems
to be a little bit awake after the antibiotics.
was made aware that if he constantly aspirates it may not be a good sign. Feeding tube was discussed and she does not want that. Again I do not recommend feeding tube but was made aware that there was an option available.
Will get lumbar puncture to complete the workup since we do not have an answer yet.
Continue to hold Aricept, Namenda and BuSpar
Overall prognosis poor
Anticipated Discharge: > 48 hours
Subjective/Interval History
-
Date of Service: July 29, 2024
Objective Data
-
Labs:
Laboratory Results
07/29/24
05:26
WBC 6.0
Hgb 8.8 L
Hct 25.1 L
Plt Count 323
Sodium 146 H
Potassium 3.2 L
Chloride 116 H
Carbon Dioxide 23
BUN 12
Creatinine 1.2
Glucose 123 H
Calcium 8.5
Total Bilirubin 0.6
AST 87 H
ALT 52 H
Alkaline Phosphatase 72
Vital Signs:
Vital Signs
Temp Pulse Resp BP Pulse Ox
98.1 F 66 18 136/83 94
07/29/24 10:53 07/29/24 07:18 07/29/24 07:18 07/29/24 07:18 07/29/24 09:48
I&O
07/28/24 07/29/24 07/30/24
06:59 06:59 06:59
Intake Total 240 / 240 650 / 650
Output Total 1800 / 1800 950 / 950
Balance -1560 / -1560 -950 / -950 650 / 650
[2024-07-29] MEDS: ZOSYN 50 IV ×2 (12:38→17:48)
--- NOTE | 2024-07-29 14:01 | W.PN.UPDATE ---
Addendum entered and electronically signed by Gina Shetty MD 07/29/24 15:04:
Cancelling LP per Neuro discussion with pt's .
She wants to watch him for 1-2 days and go on comfort care if no response.
Lovenox restarted.
Will defer antiplatelets to neuro. Prob can drop one.
Addendum entered and electronically signed by Gina Shetty MD 07/29/24 14:13:
updated
Other consultants updated.
Original Note:
Update Note
Progress Note Update
Spoke to IR
No need to hold Antiplatelets for LP.
Lovenox to be held in am.
Since Pt on Lovenox now, will D/C antiplatelet and will discuss with neuro which one to start.
--- NOTE | 2024-07-29 14:24 | W.PN.ID1 ---
Date of Service
Date of Service: July 29, 2024
Today's Communication
Aspiration precautions.
Assessment / Plan
Intermittent fevers
- Overall down and improved from admission, although persist
- suspect 2* aspiration syndrome
Leukocytosis; improved
- Current resolution of prior left shift
Encephalopathy
Hypernatremia
Elevated CK
Normal procalcitonin
Advanced dementia
CAD
HTN
Insomnia
Recommendations:
Given clinical presentation, suspect a component of recurrent aspiration.
- abx reinstituted, although with aspiration syndrome, no clear endpoint.
Strict aspiration precautions.
Neurology consultation noted. Agree with LP if exhaustive workup desired, although doubt an infectious etiology to patient's current clinical presentation.
Given clinical appearance, patient appears palliative care/hospice appropriate.
Chief Complaint
-: Fever and Other (Pulmonary infiltrate)
Subjective / Review of Systems
Patient seen and examined. Fever noted overnight.
Vital Signs / Physical Exam
Vital Signs
Vital Signs
Temp Pulse Resp BP Pulse Ox
98.1 F 66 18 136/83 94
07/29/24 10:53 07/29/24 07:18 07/29/24 07:18 07/29/24 07:18 07/29/24 09:48
Physical Exam
Constitutional: Comfortable, Chronically Ill and Non-toxic
Cardiovascular: Regular Rate and S1/S2; Negative S3/S4 or Murmur
Pulmonary: Coarse and Non Labored
Gastrointestinal: Soft and Non Tender
Extremities: Negative Edema, Cyanosis or Erythema
Skin: Warm and Dry
Psychological: Calm
Objective Data
Lab Data
Lab Results
07/29/24 05:26
07/29/24 05:26
Estimated Creat Clear 34 ml/min 07/29/24 05:26
Lactic Acid 1.5 mmol/L (0.7-2.0) 07/20/24 21:34
Total Bilirubin 0.6 mg/dl (0.2-1.3) 07/29/24 05:26
AST 87 U/L (17-59) H 07/29/24 05:26
ALT 52 U/L (0-50) H 07/29/24 05:26
Alkaline Phosphatase 72 U/L (38-126) 07/29/24 05:26
Most recent labs reviewed.
Micro Results:
07/26/24 13:20 Blood Culture - Preliminary
Blood/Venous No Growth in 72 hours- Final report to follow
07/26/24 12:50 Blood Culture - Preliminary
Blood/Venous No Growth in 72 hours- Final report to follow
07/26/24 23:48 Urine Culture - Final
Urine NO GROWTH
07/20/24 21:45 Blood Culture - Final
Blood/Venous No Growth - Final Report
07/20/24 21:34 Blood Culture - Final
Blood/Venous No Growth - Final Report
07/23/24 12:13 MRSA Screen - Final
Nose No Methicillin Resistant Staphylococcus aureus isolated.
07/20/24 21:34 Urine Culture - Final
Urine
07/21/24 21:34 Legionella Urinary Antigen - Final
Urine Negative for Legionella pneumophila Serogroup 1 antigen.
A negative result does not rule out the possiblity of
Legionella infection due to other serogroups or species of
Legionella. Clinical correlation is recommended.
Streptococcus pneumoniae Antigen (M - Final
Negative for Streptococcus pneumoniae antigen.
A negative result does not exclude infection with
Streptococcus pneumoniae. Clinical correlation is
recommended.
07/20/24 21:34 Influenza Types A & B (BELÉN) - Final
Nasal Swab Negative for Influenza A & B, NAAT
Negative results must be combined with clinical observations
and patient history.
Nucleic Acid Amplification test (NAAT)performed on the
[employer] platform.
Imaging:
07/29/2024 CXR (portable): New moderate to severe groundglass opacity in the left upper lobe, mild groundglass opacity in the right upper lobe. DDx includes PNA, pulmonary edema or pneumonitis.
07/26/24 CXR (portable): Interval development of patchy parenchymal opacity in the left lower lobe and right perihilar region.
07/23/2024 CT chest without contrast: Bilateral lower lobe opacifications compatible with subsegmental atelectasis and tiny left pleural effusion. Cannot exclude pneumonia particularly in the left lower lobe. Small bilateral peripheral lung
parenchymal groundglass opacities noted. Mild cardiomegaly seen. Please see full dictation for additional detail.
07/23/24 MRI brain without contrast: No acute infarct seen. Old infarct with encephalomalacia and gliosis posterior left MCA distribution. Overall atrophy seen.
07/22/24 CT head without contrast: No acute intracranial abnormalities noted.
07/21/2024 CT abdomen/pelvis without contrast: Large volume stool filling the descending rectum, with mild distention of the rectum with some suspected mild perirectal stranding. Findings are suggestive of stercoral colitis. No intestinal
obstruction or free air. Please see full dictation for additional detail.
--- NOTE | 2024-07-29 15:01 | W.PN.NEURO.1 ---
Today's Communication / Plan
-
.
Subjective/Objective
Subjective Data
Date of Service: July 29, 2024
Neurology follow-up note.
24 hour events: Febrile up to 38 C last night. Remains on room air.
No reported or documented seizures. Off cefepime.
Routine EEG (07/28/2024)�generalized slowing and triphasic waves.
Labs: Sodium�146, glucose�123, CK20 590�883.
Spinal CTs�no evidence of abscess.
CXR-new bilateral upper lobe pneumonia.
PMH: AD, L MCA stroke(2010), oral/pharyngeal dysphagia, HTN, DM, anemia, nephrolithiasis
PSH: none
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
FH:father at 92, from dementia
All:NKDA
ROS: Unable due to encephalopathy
General: In no acute distress, pale
Cardio: Regular rate and rhythm. Extremities are without cyanosis or edema.
Neuro:
Mental Status: Awakens to tactile stimuli. Requires constant stimulation to stay awake. Does not attend or follow requests. No verbal output.
Cranial Nerves: Orthophoric primary gaze. Pupils are 3 mm, surgical. BTT R<L. Right facial weakness.
Motor: Increased motor tone in upper and lower extremities. Withdraws to noxious stimuli
Reflexes: Limited exam due to increased motor tone
Sensory: Grimaces to noxious stim
Coordination: No tremors myoclonic movements
Gait: deferred
Assessment and Plan:
I. Multifactorial encephalopathy (metabolic, neurodegenerative, infectious)
II. Parkinsonism, likely vascular
III. Chronic left MCA infarct.
- Seizure and aspiration precautions
-Avoid hypoxia
- Avoid medications known to lower seizure threshold.
- Case was discussed with patient's at length who would like to defer any invasive diagnostic studies at this time and continue with current treatment and monitoring.
I personally reviewed all radiology and labs along with past medical records pertinent to current medical problems. Total time spent in patient care is 35 minutes.
Thank you for allowing us to participate in the care of this patient. We will continue to follow. Please do not hesitate to contact us with any questions or concerns
Objective Data
Vital Signs
Temp Pulse Resp BP Pulse Ox
36.7 C 66 18 136/83 94
07/29/24 10:53 07/29/24 07:18 07/29/24 07:18 07/29/24 07:18 07/29/24 09:48
Lab Results
07/29/24 05:26
07/29/24 05:26
Sodium 146 mmol/L (135-145) H 07/29/24 05:26
Potassium 3.2 mmol/L (3.5-5.1) L 07/29/24 05:26
BUN 12 mg/dl (9-20) 07/29/24 05:26
Glucose 123 mg/dl (70-99) H 07/29/24 05:26
Calcium 8.5 mg/dl (8.4-10.2) 07/29/24 05:26
Udc-I-Ajpcxtnxisb Pept 5650 pg/ml 07/29/24 05:26
Vitamin B12 739 pg/ml (239-931) 07/21/24 05:42
Patient Allergies
No Known Allergies Allergy (Unverified 07/20/24 21:47)
Vital Signs and Labs
-
Vital Signs and Labs:
Vital Signs
Temp Pulse Resp BP Pulse Ox
36.7 C 66 18 136/83 94
07/29/24 10:53 07/29/24 07:18 07/29/24 07:18 07/29/24 07:18 07/29/24 09:48
Lab Results
07/29/24 05:26
07/29/24 05:26
Sodium 146 mmol/L (135-145) H 07/29/24 05:26
Potassium 3.2 mmol/L (3.5-5.1) L 07/29/24 05:26
BUN 12 mg/dl (9-20) 07/29/24 05:26
Glucose 123 mg/dl (70-99) H 07/29/24 05:26
Calcium 8.5 mg/dl (8.4-10.2) 07/29/24 05:26
Tsk-V-Nakvhguogdn Pept 5650 pg/ml 07/29/24 05:26
Vitamin B12 739 pg/ml (239-931) 07/21/24 05:42
Medications
-
Medications:
Generic Name Dose Route Start Last Admin
Trade Name Freq PRN Reason Stop Dose Admin
Acetaminophen 650 mg 07/21/24 00:30 07/26/24 23:23
Acetaminophen 325 Mg Tablet PO 08/18/24 00:29 650 mg
Q4HPRN PRN Administration
BURROWS/mild pain/temp > 100.4 F
Acetaminophen 650 mg 07/21/24 00:30 07/29/24 00:19
Acetaminophen 650 Mg Rectal Suppository RECTAL 08/18/24 00:29 650 mg
Q4HPRN PRN Administration
BURROWS/ mild pain/ temp >/= 100.4F
Aspirin 81 mg 07/26/24 12:00 07/29/24 09:25
Aspirin 81 Mg Chewable Tablet PO 08/23/24 11:59 Not Given
DAILY JUAN
Buspirone HCl 10 mg 07/26/24 16:00 07/28/24 15:48
Buspirone 10 Mg Tablet PO 08/23/24 15:59 Not Given
TID JUAN
Carvedilol 3.125 mg 07/21/24 08:00 07/29/24 09:25
Carvedilol 3.125 Mg Tablet PO 08/18/24 07:59 Not Given
BID JUAN
Clopidogrel Bisulfate 75 mg 07/21/24 08:00 07/28/24 08:31
Clopidogrel 75 Mg Tablet PO 08/18/24 07:59 75 mg
DAILY JUAN Administration
Dextrose 12.5 grams 07/25/24 10:44
Dextrose 50% (0.5 Grams/Ml) 50 Ml Syringe IV 08/22/24 10:43
[id number] PRN
hypoglycemia
Protocol
Donepezil HCl 10 mg 07/21/24 22:00 07/28/24 01:24
Donepezil Hcl 10 Mg Tablet PO 08/18/24 21:59 Not Given
HS JUAN
Glucagon 1 mg 07/25/24 10:44
Glucagon 1 Mg Vial IM 08/22/24 10:43
PRN PRN
hypoglycemia
Protocol
Dextrose/Lactated Ringer's 1,000 mls @ 40 mls/hr 07/27/24 08:00 07/29/24 00:19
D5lr IV 1,000 mls
.Q24H JUAN Administration
Piperacillin Sod/Tazobactam Sod 2.25 grams in 50 mls @ 100 mls/hr 07/29/24 12:00 07/29/24 12:38
Zosyn IV 50 mls
Q6H JUAN Administration
Insulin Aspart 0 units 07/29/24 12:00 07/29/24 12:06
Insulin Aspart Low Resistance 300 Units/3 Ml Pen.Injctr SC 08/26/24 11:59 Not Given
Q6 JUAN
Protocol
Memantine 5 mg 07/21/24 08:00 07/28/24 08:31
Memantine 10 Mg Tablet PO 08/18/24 07:59 5 mg
BID JUAN Administration
Nifedipine 30 mg 07/25/24 08:00 07/29/24 09:25
Nifedipine 30 Mg Extended Release Tablet PO 08/22/24 07:59 Not Given
DAILY JUAN
Ondansetron HCl 4 mg 07/21/24 00:30
Ondansetron 4 Mg/2 Ml Vial IV 08/18/24 00:29
Q6HPRN PRN
NAUSEA/VOMITING
Pantoprazole Sodium 40 mg 07/25/24 12:00 07/29/24 12:37
Pantoprazole Sodium 40 Mg/10 Ml Vial IV 08/22/24 11:59 40 mg
Q12H JUAN Administration
Sodium Chloride 0 flush 07/20/24 23:00 07/21/24 00:44
Sodium Chloride 0.9% (Flush) Syringe IV 08/17/24 22:59 1 flush
PER PROTOCOL JUAN Administration
Sodium Chloride 10 ml 07/25/24 12:00 07/29/24 12:37
Sodium Chloride 0.9% (Preservative Free) 10 Ml Vial IV 08/22/24 11:59 10 ml
Q12H JUAN Administration
Home Medications
-
Home Medications
acetaminophen 325 mg tablet 650 mg PO Q4H PRN temp >100.4 07/20/24
aspirin 81 mg tablet,delayed release 81 mg PO DAILY 07/20/24
bisacodyl 10 mg rectal suppository 10 mg MS DAILY PRN if no result from MOM 07/20/24
buspirone 10 mg tablet 10 mg PO TID 07/20/24
carvedilol 3.125 mg tablet 3.125 mg PO BID 07/20/24
clopidogrel 75 mg tablet (Plavix) 75 mg PO DAILY 07/20/24
cyanocobalamin (vitamin B-12) 1,000 mcg tablet 1,000 mcg PO DAILY 07/20/24
donepezil 10 mg tablet 10 mg PO HS 07/20/24
famotidine 20 mg tablet 20 mg PO DAILY 07/20/24
losartan 25 mg tablet 25 mg PO DAILY 07/20/24
magnesium hydroxide 400 mg/5 mL oral suspension (Milk of Magnesia) 30 ml PO HS PRN if no BM in 3 days 07/20/24
memantine 5 mg tablet 5 mg PO BID 07/20/24
mirtazapine 7.5 mg tablet 7.5 mg PO HS 07/20/24
[2024-07-29] MEDS: LOVENOX 50 MG SC (15:25)
[2024-07-29 15:36] VITALS: BP 166/55
--- NOTE | 2024-07-29 15:42 | CM ---
Patient seen at bedside with
will continue to follow for needs
Yeimy from [facility] updated today
Per hospitalist note wants to watch him for 1-2 days and go on comfort care if no response.
PLAN: TBD, continue to monitor hospital progression
[2024-07-29 17:42] LABS: Glucose - Point of Care 121 mg/dl (70-99)
[2024-07-29] MEDS: D5W 1000 IV (17:49)
[2024-07-29 23:00] VITALS: BP 167/79
[2024-07-30 00:18] LABS: Glucose - Point of Care 107 mg/dl (70-99)
[2024-07-30] MEDS: ZOSYN 50 IV ×4 (00:31→17:08)
[2024-07-30] MEDS: NOVOLOG FLEXPEN-LOW RESISTANCE SC ×4 (00:31→18:30)
[2024-07-30] MEDS: NSS (PRESERVATIVE FREE) 10 ML IV ×2 (00:31→11:41)
[2024-07-30] MEDS: PROTONIX IV 40 MG IV ×2 (00:31→11:39)
[2024-07-30] MEDS: LOVENOX 50 MG SC ×2 (03:48→15:50)
[2024-07-30] MEDS: TYLENOL/FEVERALL 650 MG RECTAL (03:49)
[2024-07-30 06:27] LABS: Glucose - Point of Care 115 mg/dl (70-99)
[2024-07-30 06:37] LABS: Hematocrit 24.8 % (39.0-52.0); Hemoglobin 8.5 g/dL (13.0-18.0); Mean Corp Hgb Conc. 34.3 g/dL (33.0-37.0); Mean Corpuscular Hgb 30.9 pg (27.0-31.0); Mean Corpuscular Volume 90.2 fL (80.0-94.0); Mean Platelet Volume 9.3 fL (7.4-10.4); Platelet Count 340 10^3/uL (130-400); Red Blood Cell Count 2.75 10^6/uL (4.70-6.10); White Blood Cell Count 6.5 10^3/uL (4.8-10.8)
[2024-07-30 06:49] LABS: INR 1.26; PT 16.1 Sec (11.4-14.6)
[2024-07-30 07:32] VITALS: BP 160/60
--- NOTE | 2024-07-30 07:39 | W.PN.ONC2 ---
Today's Communication / Plan
-
Monitor clinical status and goals of care.
Impression
Impression
multifactorial anemia--stage 3a CKD + iron deficiency anemia s/p 1 UPRBC during hospitalization on 07/26 and ferrlicet x 4 doses
TUAN IgG positive, compliment negative 07/26, clinically not significant with elevated haptoglobin and normal retic count
Heme stool negative x 2 on 07/24 & 07/25
Occlusive DVT in the right cephalic vein
Advanced dementia
UTI
Stroke
pneumonia on CXR 07/29
stercoral colitis
Plan
Plan
transfuse Hgb <7 or as needed for symptomatic anemia
hold off on further parenteral iron in setting of active infection
symptom management RUE DVT with elevation, warm compresses
Currently on DVT ppx.
In light of significant other comorbidities and potential transition to comfort care, hold off on more aggressive workup or upgrading anticoagulation to therapeutic dosage
Will standby and follow peripherally. If there is a change in his goals of care, we will likely sign off.
Subjective/Objective
Chief Complaint
ACS Heme Follow up
Subjective
Seems nonverbal this morning. Not sure if this is his baseline. Discussed with nursing who said that he was uncomfortable over the night. Family is currently deciding on goals of care.
Vital Signs:
Vital Signs
Temp Pulse Resp BP Pulse Ox
99.1 F 60 17 160/60 98
07/30/24 07:32 07/30/24 07:32 07/30/24 07:32 07/30/24 07:32 07/30/24 07:32
Lab Results:
Laboratory Data
WBC 6.5 10^3/uL (4.8-10.8) 07/30/24 06:18
Hgb 8.5 g/dL (13.0-18.0) L 07/30/24 06:18
Plt Count 340 10^3/uL (130-400) 07/30/24 06:18
PT 16.1 Sec (11.4-14.6) H 07/30/24 06:18
INR 1.26 07/30/24 06:18
eGFR > 60.00 07/29/24 05:26
[2024-07-30 07:53] LABS: Blood Urea Nitrogen 11 mg/dl (9-20); Calcium 8.4 mg/dl (8.4-10.2); Carbon Dioxide 23 mmol/L (22-30); Chloride 113 mmol/L (98-107); Estimated Creatinine Clearance 31 ml/min; Glucose 113 mg/dl (70-99); Potassium 3.1 mmol/L (3.5-5.1); Sodium 142 mmol/L (135-145); eGFR 54.85
[2024-07-30 08:24] LABS: Magnesium 1.7 mg/dl (1.6-2.3)
[2024-07-30] MEDS: COREG PO ×2 (09:11→19:51)
[2024-07-30] MEDS: LOW STRENGTH ASPIRIN PO (09:12)
[2024-07-30] MEDS: PROCARDIA XL (EXTENDED RELEASE) PO (09:12)
--- NOTE | 2024-07-30 11:12 | W.PN.NEURO.1 ---
Today's Communication / Plan
-
.
Subjective/Objective
Subjective Data
Date of Service: July 30, 2024
Neurology follow-up note.
24 hour events: Febrile up to 38.2 C, saturates well on room air.
No reports of seizures.
Routine EEG (07/28/2024)�generalized slowing and triphasic waves.
Labs: Sodium�146, glucose�123, CK20 590�883.
Spinal CTs�no evidence of abscess.
CXR-new bilateral upper lobe pneumonia.
PMH: R cephalic vein DVT, AD, L MCA stroke(2010), oral/pharyngeal dysphagia, HTN, DM, anemia, nephrolithiasis
PSH: none
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
FH:father at 92, from dementia
All:NKDA
ROS: Unable due to encephalopathy
General: In no acute distress, pale
Cardio: Regular rate and rhythm. Extremities are without cyanosis or edema.
Neuro:
Mental Status: Grimaces to tactile stimuli. Does not attend or follow requests. No verbal output.
Cranial Nerves: Resists passive eye opening, orthophoric primary gaze. Mild right facial weakness
Motor: Increased motor tone in upper and lower extremities. Minimal withdrawal to noxious stimuli
Reflexes: Limited exam due to increased motor tone
Coordination: No tremors myoclonic movements
Gait: deferred
Assessment and Plan:
I. Multifactorial encephalopathy (metabolic, neurodegenerative, infectious) clinically worse
II. Parkinsonism, likely vascular
III. Chronic left MCA infarct. L ICA stenosis.
IV. 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
- Seizure and aspiration precautions
-Continue aspirin 81 mg once a day for stroke prophylaxis
-Palliative care consult
- Please recall neurology services any questions or concerns
I personally reviewed all radiology and labs along with past medical records pertinent to current medical problems. Total time spent in patient care is 35 minutes.
Thank you for allowing us to participate in the care of this patient. Please do not hesitate to contact us with any questions or concerns
Objective Data
Vital Signs
Temp Pulse Resp BP Pulse Ox
37.3 C 60 17 160/60 98
07/30/24 07:32 07/30/24 09:11 07/30/24 07:32 07/30/24 09:11 07/30/24 07:32
Lab Results
07/30/24 06:18
07/30/24 06:18
PT 16.1 Sec (11.4-14.6) H 07/30/24 06:18
INR 1.26 07/30/24 06:18
Sodium 142 mmol/L (135-145) 07/30/24 06:18
Potassium 3.1 mmol/L (3.5-5.1) L 07/30/24 06:18
BUN 11 mg/dl (9-20) 07/30/24 06:18
Glucose 113 mg/dl (70-99) H 07/30/24 06:18
Calcium 8.4 mg/dl (8.4-10.2) 07/30/24 06:18
Kle-O-Udhhojkkiei Pept 5650 pg/ml 07/29/24 05:26
Vitamin B12 739 pg/ml (239-931) 07/21/24 05:42
Patient Allergies
No Known Allergies Allergy (Unverified 07/20/24 21:47)
Vital Signs and Labs
-
Vital Signs and Labs:
Vital Signs
Temp Pulse Resp BP Pulse Ox
37.3 C 60 17 160/60 98
07/30/24 07:32 07/30/24 09:11 07/30/24 07:32 07/30/24 09:11 07/30/24 07:32
Lab Results
07/30/24 06:18
07/30/24 06:18
PT 16.1 Sec (11.4-14.6) H 07/30/24 06:18
INR 1.26 07/30/24 06:18
Sodium 142 mmol/L (135-145) 07/30/24 06:18
Potassium 3.1 mmol/L (3.5-5.1) L 07/30/24 06:18
BUN 11 mg/dl (9-20) 07/30/24 06:18
Glucose 113 mg/dl (70-99) H 07/30/24 06:18
Calcium 8.4 mg/dl (8.4-10.2) 07/30/24 06:18
Psc-M-Hupfnyrepyg Pept 5650 pg/ml 07/29/24 05:26
Vitamin B12 739 pg/ml (239-931) 07/21/24 05:42
Medications
-
Medications:
Generic Name Dose Route Start Last Admin
Trade Name Freq PRN Reason Stop Dose Admin
Acetaminophen 650 mg 07/21/24 00:30 07/26/24 23:23
Acetaminophen 325 Mg Tablet PO 08/18/24 00:29 650 mg
Q4HPRN PRN Administration
BURROWS/mild pain/temp > 100.4 F
Acetaminophen 650 mg 07/21/24 00:30 07/30/24 03:49
Acetaminophen 650 Mg Rectal Suppository RECTAL 08/18/24 00:29 650 mg
Q4HPRN PRN Administration
BURROWS/ mild pain/ temp >/= 100.4F
Aspirin 81 mg 07/26/24 12:00 07/30/24 09:12
Aspirin 81 Mg Chewable Tablet PO 08/23/24 11:59 Not Given
DAILY JUAN
Buspirone HCl 10 mg 07/26/24 16:00 07/28/24 15:48
Buspirone 10 Mg Tablet PO 08/23/24 15:59 Not Given
TID JUAN
Carvedilol 3.125 mg 07/21/24 08:00 07/30/24 09:11
Carvedilol 3.125 Mg Tablet PO 08/18/24 07:59 Not Given
BID JUAN
Clopidogrel Bisulfate 75 mg 07/21/24 08:00 07/28/24 08:31
Clopidogrel 75 Mg Tablet PO 08/18/24 07:59 75 mg
DAILY JUAN Administration
Dextrose 12.5 grams 07/25/24 10:44
Dextrose 50% (0.5 Grams/Ml) 50 Ml Syringe IV 08/22/24 10:43
[id number] PRN
hypoglycemia
Protocol
Donepezil HCl 10 mg 07/21/24 22:00 07/28/24 01:24
Donepezil Hcl 10 Mg Tablet PO 08/18/24 21:59 Not Given
HS JUAN
Enoxaparin Sodium 50 mg 07/29/24 16:00 07/30/24 03:48
Enoxaparin Sodium 60 Mg/0.6 Ml Syringe SC 08/26/24 15:59 50 mg
Q12H JUAN Administration
Glucagon 1 mg 07/25/24 10:44
Glucagon 1 Mg Vial IM 08/22/24 10:43
PRN PRN
hypoglycemia
Protocol
Piperacillin Sod/Tazobactam Sod 2.25 grams in 50 mls @ 100 mls/hr 07/29/24 12:00 07/30/24 11:40
Zosyn IV 50 mls
Q6H JUAN Administration
Dextrose 1,000 mls @ 40 mls/hr 07/29/24 18:00 07/29/24 17:49
D5w IV 1,000 mls
.Q24H JUAN Administration
Insulin Aspart 0 units 07/29/24 12:00 07/30/24 12:10
Insulin Aspart Low Resistance 300 Units/3 Ml Pen.Injctr SC 08/26/24 11:59 Not Given
Q6 JUAN
Protocol
Memantine 5 mg 07/21/24 08:00 07/28/24 08:31
Memantine 10 Mg Tablet PO 08/18/24 07:59 5 mg
BID JUAN Administration
Nifedipine 30 mg 07/25/24 08:00 07/30/24 09:12
Nifedipine 30 Mg Extended Release Tablet PO 08/22/24 07:59 Not Given
DAILY JUAN
Ondansetron HCl 4 mg 07/21/24 00:30
Ondansetron 4 Mg/2 Ml Vial IV 08/18/24 00:29
Q6HPRN PRN
NAUSEA/VOMITING
Pantoprazole Sodium 40 mg 07/25/24 12:00 07/30/24 11:39
Pantoprazole Sodium 40 Mg/10 Ml Vial IV 08/22/24 11:59 40 mg
Q12H JUAN Administration
Sodium Chloride 0 flush 07/20/24 23:00 07/21/24 00:44
Sodium Chloride 0.9% (Flush) Syringe IV 08/17/24 22:59 1 flush
PER PROTOCOL JUAN Administration
Sodium Chloride 10 ml 07/25/24 12:00 07/30/24 11:41
Sodium Chloride 0.9% (Preservative Free) 10 Ml Vial IV 08/22/24 11:59 10 ml
Q12H JUAN Administration
Home Medications
-
Home Medications
acetaminophen 325 mg tablet 650 mg PO Q4H PRN temp >100.4 07/20/24
aspirin 81 mg tablet,delayed release 81 mg PO DAILY 07/20/24
bisacodyl 10 mg rectal suppository 10 mg ND DAILY PRN if no result from MOM 07/20/24
buspirone 10 mg tablet 10 mg PO TID 07/20/24
carvedilol 3.125 mg tablet 3.125 mg PO BID 07/20/24
clopidogrel 75 mg tablet (Plavix) 75 mg PO DAILY 07/20/24
cyanocobalamin (vitamin B-12) 1,000 mcg tablet 1,000 mcg PO DAILY 07/20/24
donepezil 10 mg tablet 10 mg PO HS 07/20/24
famotidine 20 mg tablet 20 mg PO DAILY 07/20/24
losartan 25 mg tablet 25 mg PO DAILY 07/20/24
magnesium hydroxide 400 mg/5 mL oral suspension (Milk of Magnesia) 30 ml PO HS PRN if no BM in 3 days 07/20/24
memantine 5 mg tablet 5 mg PO BID 07/20/24
mirtazapine 7.5 mg tablet 7.5 mg PO HS 07/20/24
[2024-07-30 12:07] LABS: Glucose - Point of Care 131 mg/dl (70-99)
--- NOTE | 2024-07-30 12:07 | PN.CDI ---
Addendum entered and electronically signed by Gina Shetty MD 07/31/24 07:35:
Documentation is complete at this time.
Original Note:
CDI
- -
CDI:
Physician Documentation Request
Admit Date: 07/20/24 23:41
Dear Doctor Sena,
Progress notes include a diagnosis of KAITLIN.
Creatinine results for this hospitalization:
Laboratory Tests
07/20/24 07/21/24 07/22/24
21:34 05:42 06:37
Creatinine 1.6 H 1.4 H 1.5 H
07/23/24 07/24/24 07/25/24
07:32 07:03 11:04
Creatinine 1.5 H 1.3 1.4 H
07/26/24 07/27/24 07/28/24
07:48 06:19 06:22
Creatinine 1.3 1.4 H 1.3
07/29/24 07/30/24
05:26 06:18
Creatinine 1.2 1.3
Criteria for KAITLIN*
1 Increase in serum creatinine by > or = to 0.3 mg/dL (> or = to 26.5 micromol/L) within 48 hours, OR
2 Increase in serum creatinine to > or = to 1.5 times baseline, which is known or presumed to have occurred within 7 days, OR
3 Urine volume < 0.5 nL/kg/hour for six hours
Based on the above information and the recognized standard for KAITLIN could you please verify this diagnoses is still accurate and reflective of the patient�s condition to ensure quality of the medical record.
Please clarify in the Progress Notes:
�KAITLIN is/was present and is a clinical diagnosis based on (please include this additional support in the medical record)
�After study KAITLIN has been ruled out
�Other
Use of terms such as suspected, likely, concern for, or probable (associated with a specific diagnosis that is being evaluated, monitored, or treated as if it exists) are acceptable and can be coded in the inpatient setting, when documented at the
time of discharge.
Thank you,
Ashley Canada RN, BSN
CDI Specialist
tiger text
Please use your independent medical judgment in providing your response.
--- NOTE | 2024-07-30 12:07 | W.PN.ID1 ---
Date of Service
Date of Service: July 30, 2024
Today's Communication
Continue antibiotics pending family decision.
Assessment / Plan
Intermittent fevers
- Overall down and improved from admission, although persist
- suspect 2* aspiration syndrome
Leukocytosis; improved
- Current resolution of prior left shift
Encephalopathy
Hypernatremia
Elevated CK
Normal procalcitonin
Advanced dementia
CAD
HTN
Insomnia
Recommendations:
Given clinical presentation, suspect recurrent aspiration aspiration syndrome.
- abx reinstituted, although with aspiration syndrome, no clear endpoint.
Strict aspiration precautions.
Await further input from family regarding possible move to palliative care/hospice.
Given clinical appearance, patient appears palliative care/hospice appropriate.
����������������������������������������������������������
Chief Complaint
-: Fever and Other (Pulmonary infiltrate)
Subjective / Review of Systems
Patient seen and examined. Little significant change since yesterday.
Vital Signs / Physical Exam
Vital Signs
Vital Signs
Temp Pulse Resp BP Pulse Ox
99.1 F 60 17 160/60 98
07/30/24 07:32 07/30/24 09:11 07/30/24 07:32 07/30/24 09:11 07/30/24 07:32
Physical Exam
Constitutional: Comfortable, Chronically Ill and Non-toxic
Cardiovascular: Regular Rate and S1/S2; Negative S3/S4 or Murmur
Pulmonary: Coarse, Non Labored and Other (Poor effort.)
Gastrointestinal: Soft and Non Tender
Extremities: Negative Edema, Cyanosis or Erythema
Skin: Warm and Dry
Psychological: Calm
Objective Data
Lab Data
Lab Results
07/30/24 06:18
07/30/24 06:18
PT 16.1 Sec (11.4-14.6) H 07/30/24 06:18
INR 1.26 07/30/24 06:18
Estimated Creat Clear 31 ml/min 07/30/24 06:18
Lactic Acid 1.5 mmol/L (0.7-2.0) 07/20/24 21:34
Total Bilirubin 0.6 mg/dl (0.2-1.3) 07/29/24 05:26
AST 87 U/L (17-59) H 07/29/24 05:26
ALT 52 U/L (0-50) H 07/29/24 05:26
Alkaline Phosphatase 72 U/L (38-126) 07/29/24 05:26
Most recent labs reviewed.
Micro Results:
07/26/24 13:20 Blood Culture - Preliminary
Blood/Venous No Growth in 72 hours- Final report to follow
07/26/24 12:50 Blood Culture - Preliminary
Blood/Venous No Growth in 72 hours- Final report to follow
07/26/24 23:48 Urine Culture - Final
Urine NO GROWTH
07/20/24 21:45 Blood Culture - Final
Blood/Venous No Growth - Final Report
07/20/24 21:34 Blood Culture - Final
Blood/Venous No Growth - Final Report
07/23/24 12:13 MRSA Screen - Final
Nose No Methicillin Resistant Staphylococcus aureus isolated.
07/20/24 21:34 Urine Culture - Final
Urine
07/21/24 21:34 Legionella Urinary Antigen - Final
Urine Negative for Legionella pneumophila Serogroup 1 antigen.
A negative result does not rule out the possiblity of
Legionella infection due to other serogroups or species of
Legionella. Clinical correlation is recommended.
Streptococcus pneumoniae Antigen (M - Final
Negative for Streptococcus pneumoniae antigen.
A negative result does not exclude infection with
Streptococcus pneumoniae. Clinical correlation is
recommended.
07/20/24 21:34 Influenza Types A & B (BELÉN) - Final
Nasal Swab Negative for Influenza A & B, NAAT
Negative results must be combined with clinical observations
and patient history.
Nucleic Acid Amplification test (NAAT)performed on the
[employer] platform.
Imaging:
07/29/2024 CXR (portable): New moderate to severe groundglass opacity in the left upper lobe, mild groundglass opacity in the right upper lobe. DDx includes PNA, pulmonary edema or pneumonitis.
07/26/24 CXR (portable): Interval development of patchy parenchymal opacity in the left lower lobe and right perihilar region.
07/23/2024 CT chest without contrast: Bilateral lower lobe opacifications compatible with subsegmental atelectasis and tiny left pleural effusion. Cannot exclude pneumonia particularly in the left lower lobe. Small bilateral peripheral lung
parenchymal groundglass opacities noted. Mild cardiomegaly seen. Please see full dictation for additional detail.
07/23/24 MRI brain without contrast: No acute infarct seen. Old infarct with encephalomalacia and gliosis posterior left MCA distribution. Overall atrophy seen.
07/22/24 CT head without contrast: No acute intracranial abnormalities noted.
07/21/2024 CT abdomen/pelvis without contrast: Large volume stool filling the descending rectum, with mild distention of the rectum with some suspected mild perirectal stranding. Findings are suggestive of stercoral colitis. No intestinal
obstruction or free air. Please see full dictation for additional detail.
Care Review
Plan reviewed with: Physician (Hospitalist)
--- NOTE | 2024-07-30 12:10 | PN.CDI ---
Addendum entered and electronically signed by Gina Shetty MD 07/31/24 07:34:
Documentation is complete at this time.
Original Note:
CDI
- -
CDI:
Physician Documentation Request
Admit Date: 07/20/24 23:41
Dear Doctor Sena,
07/22-07/27 progress notes include a diagnosis of acute Acute metabolic encephalopathy.
07/28- this was changed to TME/delirium
Please clarify the type of encephalopathy:
Acute metabolic encephalopathy
Toxic metabolic encephalopathy
Other
Use of terms such as suspected, likely, concern for, or probable (associated with a specific diagnosis that is being evaluated, monitored, or treated as if it exists) are acceptable and can be coded in the inpatient setting, when documented at the
time of discharge.
Thank you,
Ashley Canada RN, BSN
CDI Specialist
tiger text
Please use your independent medical judgment in providing your response.
--- NOTE | 2024-07-30 12:18 | PN.CDI ---
CDI
- -
CDI:
Physician Documentation Request
Admit Date: 07/20/24 23:41
Dear Doctor Sena,
07/27- hospitalist progress note includes a diagnosis of rhabdomyolysis
Could you please clarify the type of rhabdomyolysis
Traumatic
Non traumatic
Other
Use of terms such as suspected, likely, concern for, or probable (associated with a specific diagnosis that is being evaluated, monitored, or treated as if it exists) are acceptable and can be coded in the inpatient setting, when documented at the
time of discharge.
Thank you,
Ashley Canada RN, BSN
CDI Specialist
tiger text
Please use your independent medical judgment in providing your response.
--- NOTE | 2024-07-30 13:11 | W.PN.HOSP.TC ---
Today's Communication/Plan
-
Replace magnesium and potassium
Continue antibiotics
Assessment / Plan
Assessment / Plan
84-year-old with advanced dementia brought in from SNF with fever and lethargy. Patient was recent admitted to [facility] after a fall was lethargic subsequently improved and was discharged to rehab. She developed lethargy again 2 days
prior to admission. Admitted to hospital for UTI/pneumonia. MRI of the brain with no acute changes. Patient improved was awake and interacting with normal bowel with hydration and antibiotics. Urine culture negative antibiotic switched to cover
pneumonia 3 days after improvement developed somnolence again workup showed right lower lobe pneumonia with concern of aspiration
07/23/2024 CT of the chest-bilateral lower lobe consolidation compatible with subsegmental atelectasis with tiny left pleural effusion. Cannot exclude pneumonia particularly in the left lower lobe small bilateral peripheral lung parenchymal
groundglass opacities. Mild cardiomegaly
07/23/2024 MRI- no acute infarct 0ld infarct with encephalomalacia and gliosis involving posterior left MCA distribution. Mild sinusitis.
07/21/2024-CT abdomen pelvis-large volume stool filling the descending rectum, mild distention of the rectum with some suspected mild perirectal stranding findings consistent with stercoral colitis.
07/27/2024-CT of the T-spine-no vertebral compression deformity. Minor disc space narrowing. No canal stenosis or foraminal stenosis or abnormal enhancement.
07/27/2024-CT of the O-vyppv-wasvfxwogbap changes incidental 70 to 80% stenosis of the proximal left ICA nonspecific pneumonitis in the upper lung zones.
07/28/24- EEG- NO Sz.
07/28/24- ECHO- Normal Biv size and function . No regional WMA.
07/29/2024-new moderate to severe groundglass opacity in the left upper lobe and mild groundglass opacity in the right upper lobe-new bilateral upper lobe pneumonia. Albuterol pulmonary edema less likely. Moderate subpleural airspace consolidation
in the left lower lobe unchanged
07/28/2024-occlusive DVT in the right cephalic vein
07/28/2024-more than 70% stenosis of the left carotid bulb, soft plaque. Calcified plaque in the right carotid bulb less than 50% stenosis
pt's pupils equal and reactive
Patient restless opens eyes
edema right foot,mild edema of the right hand
# TME/delirium
Unclear reason
MRI negative for stroke
Bilateral pneumonia-likely aspiration pneumonia
Neurology consulted
Blood cultures and urine cultures negative
Was treated with ceftriaxone on 07/20, Zosyn 07/21-07/24, doxycycline and Unasyn 07/24- 07/26 , 07/27 - Vanco and Cefepime- All discontinued. 07/29/2024- Zosyn started.
COVID and influenza negative
TSH and cortisol within normal limits
Ammonia level normal
Speech evaluation noted- Keep NPO
Psychiatry consulted-no changes in medicines
Neurology evaluated pt.- recommends palliative eval/hospice
EEG neg
Lumbar puncture held per neuro Discussion with the patient's yesterday
# Edema right foot - USS negative for DVT
Cephalic vein thrombus right arm
Continue Lovenox
# Anemia
Negative FOBT
Transfused with 1 unit of blood 07/26/24
Completed 5 days of IV iron for NOREEN
Hematology eval noted
# Hypokalemia-follow. Replace as needed
# Hypernatremia-resolved.
# Acute kidney injury-Resolved. cut back on IV fluids.
# Abnormal carotid on CT- ultrasound with more than 70% stenosis. OP Vascular eval discussed with son
# Rhabdomyolysis-continue IV fluids low rate. Follow CPK
# Elevated AST and ALT-likely secondary to Rhabdo
# Constipation-bowel regimen
# Dysphagia-speech evaluation ongoing. Aspiration precautions. NPO
# Hypertension-hold losartan. Continue Coreg 3.125 twice daily and nifedipine 30 mg daily (while off of losartan)
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
# Coronary artery disease-continue Coreg, ASA
# Nonobstructive nephrolithiasis
# Advanced dementia-for 2 years . Hold Aricept, memantine.BuSpar ( for behavior disturbance)
# GERD-PPI
# Hypoalbuminemia
# DVT prophylaxis-Lovenox
# DNR/DNI
D/W RN
D/W ID and Neuro
Spoke to she states that patient's son is coming from out of country to visit and the other son will also come in and see the patient. They want to make a decision after this regarding hospice. She wants to continue with antibiotics for the
next few days until then. Aspiration risks discussed with the . She still wants to hold off on the LP
Overall prognosis poor
Anticipated Discharge: > 48 hours
Subjective/Interval History
-
Date of Service: July 30, 2024
Objective Data
-
Labs:
Laboratory Results
07/30/24
06:18
WBC 6.5
Hgb 8.5 L
Hct 24.8 L
Plt Count 340
PT 16.1 H
INR 1.26
Sodium 142
Potassium 3.1 L
Chloride 113 H
Carbon Dioxide 23
BUN 11
Creatinine 1.3
Glucose 113 H
Calcium 8.4
Vital Signs:
Vital Signs
Temp Pulse Resp BP Pulse Ox
99.1 F 60 17 160/60 98
07/30/24 07:32 07/30/24 09:11 07/30/24 07:32 07/30/24 09:11 07/30/24 07:32
I&O
07/29/24 07/30/24 07/31/24
06:59 06:59 06:59
Intake Total 650 / 650
Output Total 950 / 950 1150 / 1150
Balance -950 / -950 -500 / -500
[2024-07-30] MEDS: MAGNESIUM SULFATE 100 IV (13:40)
[2024-07-30 14:53] VITALS: BP 161/66
[2024-07-30 15:46] VITALS: BP 173/74; PULSE 60; O2SAT 96
[2024-07-30 15:53] VITALS: BP 154/72; BP 173/74; PULSE 61
[2024-07-30] MEDS: D5W 1000 IV (17:08)
[2024-07-30 18:24] LABS: Glucose - Point of Care 113 mg/dl (70-99)
[2024-07-30 23:15] VITALS: BP 171/78
[2024-07-31] MEDS: PROTONIX IV 40 MG IV ×2 (00:01→11:25)
[2024-07-31] MEDS: ZOSYN 50 IV ×4 (00:02→17:03)
[2024-07-31] MEDS: NSS (PRESERVATIVE FREE) 10 ML IV ×2 (00:02→11:25)
[2024-07-31 00:09] LABS: Glucose - Point of Care 106 mg/dl (70-99)
[2024-07-31] MEDS: NOVOLOG FLEXPEN-LOW RESISTANCE SC ×4 (00:12→18:18)
[2024-07-31] MEDS: LOVENOX 50 MG SC ×2 (05:20→15:24)
[2024-07-31 05:24] LABS: Glucose - Point of Care 99 mg/dl (70-99)
--- NOTE | 2024-07-31 05:26 | DOWNTIME ---
There was a [facility] [employer] Downtime on 07/31/2024 from 0200 to 08/01/2023 at 0318 . Downtime documentation of patient's care, including medication administrations, has been reconciled in the electronic record per guidelines. Refer to the
patient's paper chart under the miscellaneous tab to see printed paper medication records and downtime forms.
--- NOTE | 2024-07-31 06:34 | W.PN.UPDATE ---
Update Note
Progress Note Update
CBC Stable.
Limited further hematology input at this time.
Heme will sign off. Call us back PRN.
[2024-07-31 07:05] VITALS: BP 174/69
[2024-07-31 08:12] LABS: Glucose - Point of Care 115 mg/dl (70-99)
--- NOTE | 2024-07-31 08:13 | CM ---
Patient chart reviewed
From [facility]-referral in [facility]
cont antibiotics per for next few days
per hospitalist decision regarding hospice in the next few days
son coming in from out of country & other jw will be in.
PLAN: TBD, family will be making a decision about hospice
[2024-07-31] MEDS: COREG 3.125 MG PO (08:28)
[2024-07-31] MEDS: LOW STRENGTH ASPIRIN PO (08:29)
[2024-07-31] MEDS: PROCARDIA XL (EXTENDED RELEASE) PO (08:34)
[2024-07-31 09:30] LABS: Blood Urea Nitrogen 11 mg/dl (9-20); Calcium 8.2 mg/dl (8.4-10.2); Carbon Dioxide 24 mmol/L (22-30); Chloride 107 mmol/L (98-107); Estimated Creatinine Clearance 31 ml/min; Glucose 112 mg/dl (70-99); Potassium 3.3 mmol/L (3.5-5.1); Sodium 138 mmol/L (135-145); eGFR 54.85
[2024-07-31 11:05] VITALS: BP 185/81
[2024-07-31 12:45] LABS: Glucose - Point of Care 122 mg/dl (70-99)
[2024-07-31] MEDS: APRESOLINE 5 MG IV (12:47)
[2024-07-31 12:57] LABS: Magnesium 2.1 mg/dl (1.6-2.3)
[2024-07-31] MEDS: KCL 260 MEQ IV (13:05)
--- NOTE | 2024-07-31 14:10 | W.PN.HOSP.TC ---
Today's Communication/Plan
-
Dobhoff trial with Feeding.
Assessment / Plan
Assessment / Plan
84-year-old with advanced dementia brought in from SNF with fever and lethargy. Patient was recent admitted to [facility] after a fall was lethargic subsequently improved and was discharged to rehab. She developed lethargy again 2 days
prior to admission. Admitted to hospital for UTI/pneumonia. MRI of the brain with no acute changes. Patient improved was awake and interacting with normal bowel with hydration and antibiotics. Urine culture negative antibiotic switched to cover
pneumonia 3 days after improvement developed somnolence again workup showed right lower lobe pneumonia with concern of aspiration
07/23/2024 CT of the chest-bilateral lower lobe consolidation compatible with subsegmental atelectasis with tiny left pleural effusion. Cannot exclude pneumonia particularly in the left lower lobe small bilateral peripheral lung parenchymal
groundglass opacities. Mild cardiomegaly
07/23/2024 MRI- no acute infarct 0ld infarct with encephalomalacia and gliosis involving posterior left MCA distribution. Mild sinusitis.
07/21/2024-CT abdomen pelvis-large volume stool filling the descending rectum, mild distention of the rectum with some suspected mild perirectal stranding findings consistent with stercoral colitis.
07/27/2024-CT of the T-spine-no vertebral compression deformity. Minor disc space narrowing. No canal stenosis or foraminal stenosis or abnormal enhancement.
07/27/2024-CT of the T-crrrc-plvdcfizcgqf changes incidental 70 to 80% stenosis of the proximal left ICA nonspecific pneumonitis in the upper lung zones.
07/28/24- EEG- NO Sz.
07/28/24- ECHO- Normal Biv size and function . No regional WMA.
07/29/2024-new moderate to severe groundglass opacity in the left upper lobe and mild groundglass opacity in the right upper lobe-new bilateral upper lobe pneumonia. Albuterol pulmonary edema less likely. Moderate subpleural airspace consolidation
in the left lower lobe unchanged
07/28/2024-occlusive DVT in the right cephalic vein
07/28/2024-more than 70% stenosis of the left carotid bulb, soft plaque. Calcified plaque in the right carotid bulb less than 50% stenosis
pt's pupils equal and reactive
Patient restless opens eyes , then rests
edema right foot,mild edema of the right hand- better
# TME/delirium
Unclear reason
MRI negative for stroke
Bilateral pneumonia-likely aspiration pneumonia
Neurology consulted
Blood cultures and urine cultures negative
Was treated with ceftriaxone on 07/20, Zosyn 07/21-07/24, doxycycline and Unasyn 07/24- 07/26 , 07/27 - Vanco and Cefepime- All discontinued. 07/29/2024- Zosyn started.
COVID and influenza negative
TSH and cortisol within normal limits
Ammonia level normal
Speech evaluation noted- Keep NPO
Psychiatry consulted-no changes in medicines
Neurology evaluated pt.- recommends palliative eval/hospice
EEG neg
Lumbar puncture held per neuro Discussion with the patient's
She does not want lumbar puncture when I discussed with her again today.
She wants speech reevaluation and also requesting that he be fed through NG tube for a few days to see if he perks up if not that going to do hospice.
Will try Dobbhoff tube and nutrition via Dobbhoff. She is aware that he may need mitts. Also aspiration risks were discussed.
# Edema right foot - USS negative for DVT
Cephalic vein thrombus right arm
Continue Lovenox
# Anemia
Negative FOBT
Transfused with 1 unit of blood 07/26/24
Completed 5 days of IV iron for NOREEN
Hematology eval noted
# Hypokalemia-follow. Replace as needed
# Hypernatremia-resolved.
# Acute kidney injury-Resolved. cut back on IV fluids and stop IV fluids when patient can take tube feeds
# Abnormal carotid on CT- ultrasound with more than 70% stenosis. OP Vascular eval discussed with son
# Rhabdomyolysis-continue IV fluids low rate. Follow CPK
# Elevated AST and ALT-likely secondary to Rhabdo
# Constipation-bowel regimen
# Dysphagia-speech evaluation ongoing. Aspiration precautions. NPO
# Hypertension-hold losartan. Continue Coreg 3.125 twice daily and nifedipine 30 mg daily (while off of losartan)
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
# Coronary artery disease-continue Coreg, ASA rectal
# HTN- IV Hydralazine.
# Nonobstructive nephrolithiasis
# Advanced dementia-for 2 years . Hold Aricept, memantine.BuSpar ( for behavior disturbance)
# GERD-PPI
# Hypoalbuminemia
# DVT prophylaxis-Lovenox
# DNR/DNI
D/W RN
D/W ID and Neuro
Spoke to at bed side. She wants to try tube feeds for the next few days and if he does not perk up they want to do hospice.
Overall prognosis poor to her. Poor quality of life discussed with . Son is coming from [place].
Anticipated Discharge: > 48 hours
Subjective/Interval History
-
Date of Service: July 31, 2024
Objective Data
-
Labs:
Laboratory Results
07/31/24
08:11
Sodium 138
Potassium 3.3 L
Chloride 107
Carbon Dioxide 24
BUN 11
Creatinine 1.3
Glucose 112 H
Calcium 8.2 L
Vital Signs:
Vital Signs
Temp Pulse Resp BP Pulse Ox
98.9 F 56 18 173/75 97
07/31/24 11:05 07/31/24 07:05 07/31/24 07:05 07/31/24 12:47 07/31/24 10:51
I&O
07/30/24 07/31/24 08/01/24
06:59 06:59 06:59
Intake Total 650 / 650 590 / 590
Output Total 1150 / 1150
Balance -500 / -500 590 / 590
--- NOTE | 2024-07-31 14:33 | W.PN.UPDATE ---
Addendum entered and electronically signed by CHARU Mosley 07/31/24 15:27:
abd Xray with DHT in proximal stomach-- wire pulled ok to use for meds and feeds. Will sign off call with questions.
Original Note:
Update Note
Progress Note Update
Asked by medical team to place DHT for nutrition. DHT placed left nare without difficulty at 65 cm. Confirmed with air insufflation. Will check X ray to confirm placement. Will add mitts to prevent from pulling out.
[2024-07-31 14:59] VITALS: BP 154/64
[2024-07-31] MEDS: THIAMINE INJECTION 200 MG IV (15:25)
[2024-07-31 15:31] LABS: Phosphorus 2.3 mg/dl (2.5-4.5)
--- NOTE | 2024-07-31 15:53 | W.PN.ID1 ---
Date of Service
Date of Service: July 31, 2024
Today's Communication
Continue antibiotics.
Assessment / Plan
Intermittent fevers
- Overall down and improved
- suspect 2* recurrent aspiration syndrome
Leukocytosis; improved
- Current resolution of prior left shift
Encephalopathy
Hypernatremia
Elevated CK
Normal procalcitonin
Advanced dementia
CAD
HTN
Insomnia
Recommendations:
Given clinical presentation, suspect recurrent aspiration aspiration syndrome.
- abx reinstituted, although with aspiration syndrome, no clear endpoint.
Strict aspiration precautions.
Given clinical appearance, patient appears palliative care/hospice appropriate.
����������������������������������������������������������
Chief Complaint
-: Fever and Other (Pulmonary infiltrate)
Subjective / Review of Systems
Patient seen and examined. Dobbhoff placed at family's request.
Review of Systems: No Fever
Vital Signs / Physical Exam
Vital Signs
Vital Signs
Temp Pulse Resp BP Pulse Ox
98.6 F 56 18 154/64 97
07/31/24 14:59 07/31/24 14:59 07/31/24 14:59 07/31/24 14:59 07/31/24 14:59
Physical Exam
Constitutional: Comfortable, Chronically Ill and Non-toxic
Head: Other (Dobbhoff in place.)
Cardiovascular: Regular Rate and S1/S2; Negative S3/S4 or Murmur
Pulmonary: Coarse, Non Labored and Other (Poor effort.)
Gastrointestinal: Soft and Non Tender
Extremities: Negative Edema, Cyanosis or Erythema
Skin: Warm and Dry
Psychological: Calm
Objective Data
Lab Data
Lab Results
07/30/24 06:18
07/31/24 08:11
PT 16.1 Sec (11.4-14.6) H 07/30/24 06:18
INR 1.26 07/30/24 06:18
Estimated Creat Clear 31 ml/min 07/31/24 08:11
Lactic Acid 1.5 mmol/L (0.7-2.0) 07/20/24 21:34
Total Bilirubin 0.6 mg/dl (0.2-1.3) 07/29/24 05:26
AST 87 U/L (17-59) H 07/29/24 05:26
ALT 52 U/L (0-50) H 07/29/24 05:26
Alkaline Phosphatase 72 U/L (38-126) 07/29/24 05:26
Most recent labs reviewed.
Micro Results:
07/26/24 13:20 Blood Culture - Final
Blood/Venous No Growth - Final Report
07/26/24 12:50 Blood Culture - Final
Blood/Venous No Growth - Final Report
07/26/24 23:48 Urine Culture - Final
Urine NO GROWTH
07/20/24 21:45 Blood Culture - Final
Blood/Venous No Growth - Final Report
07/20/24 21:34 Blood Culture - Final
Blood/Venous No Growth - Final Report
07/23/24 12:13 MRSA Screen - Final
Nose No Methicillin Resistant Staphylococcus aureus isolated.
07/20/24 21:34 Urine Culture - Final
Urine
07/21/24 21:34 Legionella Urinary Antigen - Final
Urine Negative for Legionella pneumophila Serogroup 1 antigen.
A negative result does not rule out the possiblity of
Legionella infection due to other serogroups or species of
Legionella. Clinical correlation is recommended.
Streptococcus pneumoniae Antigen (M - Final
Negative for Streptococcus pneumoniae antigen.
A negative result does not exclude infection with
Streptococcus pneumoniae. Clinical correlation is
recommended.
07/20/24 21:34 Influenza Types A & B (BELÉN) - Final
Nasal Swab Negative for Influenza A & B, NAAT
Negative results must be combined with clinical observations
and patient history.
Nucleic Acid Amplification test (NAAT)performed on the
[employer] platform.
Imaging:
07/29/2024 CXR (portable): New moderate to severe groundglass opacity in the left upper lobe, mild groundglass opacity in the right upper lobe. DDx includes PNA, pulmonary edema or pneumonitis.
07/26/24 CXR (portable): Interval development of patchy parenchymal opacity in the left lower lobe and right perihilar region.
07/23/2024 CT chest without contrast: Bilateral lower lobe opacifications compatible with subsegmental atelectasis and tiny left pleural effusion. Cannot exclude pneumonia particularly in the left lower lobe. Small bilateral peripheral lung
parenchymal groundglass opacities noted. Mild cardiomegaly seen. Please see full dictation for additional detail.
07/23/24 MRI brain without contrast: No acute infarct seen. Old infarct with encephalomalacia and gliosis posterior left MCA distribution. Overall atrophy seen.
07/22/24 CT head without contrast: No acute intracranial abnormalities noted.
07/21/2024 CT abdomen/pelvis without contrast: Large volume stool filling the descending rectum, with mild distention of the rectum with some suspected mild perirectal stranding. Findings are suggestive of stercoral colitis. No intestinal
obstruction or free air. Please see full dictation for additional detail.
--- NOTE | 2024-07-31 18:00 | PTCARENOTE ---
Pt. family requesting feeding tube for pt. GI consulted and placed Dobhuff tube in at bedside. Portable XRAY ordered, confirmed placement, meds and tube feeding okay to give. Pt started on tube feed at 10 ml/hr, will increase by 10 every [address] for protective measures due to pt.'s mentation. at bedside updated, will continue with plan of care.
[2024-07-31 18:17] LABS: Glucose - Point of Care 128 mg/dl (70-99)
[2024-07-31] MEDS: D5W 1000 IV (21:02)
[2024-07-31 23:57] VITALS: BP 130/77
[2024-08-01 00:23] LABS: Glucose - Point of Care 122 mg/dl (70-99)
[2024-08-01] MEDS: PROTONIX IV 40 MG IV ×3 (00:26→23:55)
[2024-08-01] MEDS: NSS (PRESERVATIVE FREE) 10 ML IV ×3 (00:26→23:55)
[2024-08-01] MEDS: ZOSYN 50 IV ×5 (00:27→23:56)
[2024-08-01] MEDS: NOVOLOG FLEXPEN-LOW RESISTANCE SC ×2 (00:27→18:14)
[2024-08-01] MEDS: LOVENOX 50 MG SC ×2 (05:32→15:29)
[2024-08-01 05:38] LABS: Glucose - Point of Care 169 mg/dl (70-99)
[2024-08-01] MEDS: NOVOLOG FLEXPEN-LOW RESISTANCE 1 UNITS SC ×2 (05:44→12:54)
--- NOTE | 2024-08-01 06:44 | PTCARENOTE ---
Tube feeding increased to 20 mL/hr at 01:00. Pt. tolerating tube feeding. Patient remains non-verbal. Plan of care ongoing.
[2024-08-01 07:28] VITALS: BP 161/69
[2024-08-01 07:52] LABS: Hematocrit 26.2 % (39.0-52.0); Hemoglobin 9.2 g/dL (13.0-18.0); Mean Corp Hgb Conc. 35.1 g/dL (33.0-37.0); Mean Corpuscular Hgb 31.1 pg (27.0-31.0); Mean Corpuscular Volume 88.5 fL (80.0-94.0); Mean Platelet Volume 9.3 fL (7.4-10.4); Platelet Count 392 10^3/uL (130-400); Red Blood Cell Count 2.96 10^6/uL (4.70-6.10); Red Cell Dist. Width 14.4 % (11.5-14.5); White Blood Cell Count 6.3 10^3/uL (4.8-10.8)
[2024-08-01 08:15] LABS: ALT (SGPT) 50 U/L (0-50); AST (SGOT) 63 U/L (17-59); Albumin 2.5 g/dl (3.5-5.0); Alkaline Phosphatase 90 U/L (38-126); Blood Urea Nitrogen 11 mg/dl (9-20); Calcium 8.1 mg/dl (8.4-10.2); Carbon Dioxide 23 mmol/L (22-30); Chloride 106 mmol/L (98-107); Creatine Phosphokinase 126 U/L (55-170); Direct Bilirubin 0.2 mg/dl (0.0-0.4); Estimated Creatinine Clearance 31 ml/min; Glucose 152 mg/dl (70-99); Magnesium 2.1 mg/dl (1.6-2.3); Phosphorus 2.2 mg/dl (2.5-4.5); Sodium 135 mmol/L (135-145); Total Bilirubin 0.7 mg/dl (0.2-1.3); Total Protein 5.2 g/dl (6.3-8.2); eGFR 54.85
[2024-08-01] MEDS: ASPIRIN 300 MG RECTAL (09:11)
[2024-08-01] MEDS: THIAMINE INJECTION 200 MG IV (09:12)
[2024-08-01] MEDS: NEUTRA-PHOS POWDER PACKET 250 MG TUBE ×4 (09:13→21:37)
--- NOTE | 2024-08-01 10:03 | PN.CDI ---
Addendum entered and electronically signed by Gina Shetty MD 08/01/24 18:07:
Documentation is complete at this time.
Original Note:
CDI
- -
CDI:
Physician Documentation Request
Admit Date: 07/20/24 23:41
Dear Doctor Sena,
Please review the following and provide your response in the progress notes.
Clinical Indicators:
The diagnosis of Sepsis was documented in H&P and hospitalist progress notes from 07/21-07/27 but is not consistently noted in subsequent documentation.
07/20 WBC 11.9 , presenting temp 102.7 , heart rate 70s-80s, respiratory rate 16-22
Patient has received Maxipime, Rocephin, Zosyn, Vancomycin
Please clarify the following:
____ - Sepsis was present on admission and is now resolved.
____ - Sepsis was present on admission and is still being monitored, evaluated or treated
____ - Sepsis was ruled out
____ - Other
Use of terms such as suspected, likely, concern for, or probable (associated with a specific diagnosis that is being evaluated, monitored, or treated as if it exists) are acceptable and can be coded in the inpatient setting, when documented at the
time of discharge.
Thank you,
Ashley Canada RN BSN
CDI Specialist
tiger text
Please use your independent medical judgment in providing your response.
--- NOTE | 2024-08-01 10:17 | CM ---
Chart reviewed
dobhoff - tube feed
decision regarding hospice in the next few days
son coming in from [place] of [place] & other jw will be in.
PLAN: TBD, await family decision regarding hospice
[2024-08-01 10:38] VITALS: BP 141/65
[2024-08-01] MEDS: KCL ELIXIR 40 MEQ TUBE (10:44)
[2024-08-01] MEDS: KCL 270 MEQ IV (10:45)
[2024-08-01 12:00] LABS: Glucose - Point of Care 150 mg/dl (70-99)
--- NOTE | 2024-08-01 13:45 | W.PN.ID1 ---
Date of Service
Date of Service: August 01, 2024
Today's Communication
Continue antibiotics.
Assessment / Plan
Intermittent fevers
- Overall down and improved
- suspect 2* recurrent aspiration syndrome
Leukocytosis; improved
- Current resolution of prior left shift
Encephalopathy
Hypernatremia
Elevated CK
Normal procalcitonin
Advanced dementia
CAD
HTN
Insomnia
Recommendations:
Suspect recurrent aspiration aspiration syndrome.
- abx reinstituted, although with aspiration syndrome, no clear endpoint.
Continue with strict aspiration precautions.
Follow for improvement while receiving tube feeds via Dobbhoff.
Given clinical appearance, patient appears palliative care/hospice appropriate.
����������������������������������������������������������
Chief Complaint
-: Fever and Other (Pulmonary infiltrate)
Vital Signs / Physical Exam
Vital Signs
Vital Signs
Temp Pulse Resp BP Pulse Ox
98.4 F 61 14 141/65 97
08/01/24 07:28 08/01/24 07:28 08/01/24 07:28 08/01/24 10:38 08/01/24 11:07
Physical Exam
Constitutional: Comfortable, Chronically Ill and Non-toxic
Head: Other (Dobbhoff in place.)
Cardiovascular: Regular Rate and S1/S2; Negative S3/S4 or Murmur
Pulmonary: Coarse, Non Labored and Other (Poor effort.)
Gastrointestinal: Soft and Non Tender
Extremities: Negative Edema, Cyanosis or Erythema
Skin: Warm and Dry
Neurological: Awake and Other (Responsive to voice.)
Psychological: Calm
Objective Data
Lab Data
Lab Results
08/01/24 07:37
08/01/24 07:37
PT 16.1 Sec (11.4-14.6) H 07/30/24 06:18
INR 1.26 07/30/24 06:18
Estimated Creat Clear 31 ml/min 08/01/24 07:37
Lactic Acid 1.5 mmol/L (0.7-2.0) 07/20/24 21:34
Total Bilirubin 0.7 mg/dl (0.2-1.3) 08/01/24 07:37
AST 63 U/L (17-59) H 08/01/24 07:37
ALT 50 U/L (0-50) 08/01/24 07:37
Alkaline Phosphatase 90 U/L (38-126) 08/01/24 07:37
Most recent labs reviewed.
Micro Results:
07/26/24 13:20 Blood Culture - Final
Blood/Venous No Growth - Final Report
07/26/24 12:50 Blood Culture - Final
Blood/Venous No Growth - Final Report
07/26/24 23:48 Urine Culture - Final
Urine NO GROWTH
07/20/24 21:45 Blood Culture - Final
Blood/Venous No Growth - Final Report
07/20/24 21:34 Blood Culture - Final
Blood/Venous No Growth - Final Report
07/23/24 12:13 MRSA Screen - Final
Nose No Methicillin Resistant Staphylococcus aureus isolated.
07/20/24 21:34 Urine Culture - Final
Urine
07/21/24 21:34 Legionella Urinary Antigen - Final
Urine Negative for Legionella pneumophila Serogroup 1 antigen.
A negative result does not rule out the possiblity of
Legionella infection due to other serogroups or species of
Legionella. Clinical correlation is recommended.
Streptococcus pneumoniae Antigen (M - Final
Negative for Streptococcus pneumoniae antigen.
A negative result does not exclude infection with
Streptococcus pneumoniae. Clinical correlation is
recommended.
07/20/24 21:34 Influenza Types A & B (BELÉN) - Final
Nasal Swab Negative for Influenza A & B, NAAT
Negative results must be combined with clinical observations
and patient history.
Nucleic Acid Amplification test (NAAT)performed on the
[employer] platform.
Imaging:
07/29/2024 CXR (portable): New moderate to severe groundglass opacity in the left upper lobe, mild groundglass opacity in the right upper lobe. DDx includes PNA, pulmonary edema or pneumonitis.
07/26/24 CXR (portable): Interval development of patchy parenchymal opacity in the left lower lobe and right perihilar region.
07/23/2024 CT chest without contrast: Bilateral lower lobe opacifications compatible with subsegmental atelectasis and tiny left pleural effusion. Cannot exclude pneumonia particularly in the left lower lobe. Small bilateral peripheral lung
parenchymal groundglass opacities noted. Mild cardiomegaly seen. Please see full dictation for additional detail.
07/23/24 MRI brain without contrast: No acute infarct seen. Old infarct with encephalomalacia and gliosis posterior left MCA distribution. Overall atrophy seen.
07/22/24 CT head without contrast: No acute intracranial abnormalities noted.
07/21/2024 CT abdomen/pelvis without contrast: Large volume stool filling the descending rectum, with mild distention of the rectum with some suspected mild perirectal stranding. Findings are suggestive of stercoral colitis. No intestinal
obstruction or free air. Please see full dictation for additional detail.
--- NOTE | 2024-08-01 14:08 | W.PN.HOSP.TC ---
Today's Communication/Plan
-
AB
DHT feeds
Await family decision
Assessment / Plan
Assessment / Plan
84-year-old with advanced dementia brought in from SNF with fever and lethargy. Patient was recent admitted to [facility] after a fall was lethargic subsequently improved and was discharged to rehab. She developed lethargy again 2 days
prior to admission. Admitted to hospital for UTI/pneumonia. MRI of the brain with no acute changes. Patient improved was awake and interacting with normal bowel with hydration and antibiotics. Urine culture negative antibiotic switched to cover
pneumonia 3 days after improvement developed somnolence again workup showed right lower lobe pneumonia with concern of aspiration
07/23/2024 CT of the chest-bilateral lower lobe consolidation compatible with subsegmental atelectasis with tiny left pleural effusion. Cannot exclude pneumonia particularly in the left lower lobe small bilateral peripheral lung parenchymal
groundglass opacities. Mild cardiomegaly
07/23/2024 MRI- no acute infarct 0ld infarct with encephalomalacia and gliosis involving posterior left MCA distribution. Mild sinusitis.
07/21/2024-CT abdomen pelvis-large volume stool filling the descending rectum, mild distention of the rectum with some suspected mild perirectal stranding findings consistent with stercoral colitis.
07/27/2024-CT of the T-spine-no vertebral compression deformity. Minor disc space narrowing. No canal stenosis or foraminal stenosis or abnormal enhancement.
07/27/2024-CT of the N-yoasp-wrawybghugrr changes incidental 70 to 80% stenosis of the proximal left ICA nonspecific pneumonitis in the upper lung zones.
07/28/24- EEG- NO Sz.
07/28/24- ECHO- Normal Biv size and function . No regional WMA.
07/29/2024-new moderate to severe groundglass opacity in the left upper lobe and mild groundglass opacity in the right upper lobe-new bilateral upper lobe pneumonia. Albuterol pulmonary edema less likely. Moderate subpleural airspace consolidation
in the left lower lobe unchanged
07/28/2024-occlusive DVT in the right cephalic vein
07/28/2024-more than 70% stenosis of the left carotid bulb, soft plaque. Calcified plaque in the right carotid bulb less than 50% stenosis
pt's pupils equal and reactive
Patient opens eyes , Does not interact. ( told me yesterday that pt cannot say his name)
ABd SOft NT
DHT in
# TME/delirium
Unclear reason
Possible advanced dementia
MRI negative for stroke
Bilateral pneumonia-likely aspiration pneumonia
Neurology consulted
Blood cultures and urine cultures negative
Was treated with ceftriaxone on 07/20, Zosyn 07/21-07/24, doxycycline and Unasyn 07/24- 07/26 , 07/27 - Vanco and Cefepime- All discontinued. 07/29/2024- Zosyn started.
COVID and influenza negative
TSH and cortisol within normal limits
Ammonia level normal
Speech evaluation noted- Keep NPO
Psychiatry consulted-no changes in medicines
Neurology evaluated pt.- recommends palliative eval/hospice
EEG neg
Lumbar puncture held per neuro Discussion with the patient's
She does not want lumbar puncture when I discussed with her again today.
DHT feeding started 07/31/24 till family makes decision re Hospice or not
Head of bed elevation and aspiration precautions
# Edema right foot - USS negative for DVT
Cephalic vein thrombus right arm
Continue Lovenox
# Anemia
Negative FOBT
Transfused with 1 unit of blood 07/26/24
Completed 5 days of IV iron for NOREEN
Hematology eval noted
# Hypokalemia-follow. Replace as needed
# Hypernatremia-resolved.
# Hypophosphatemia-replace
# Acute kidney injury-Resolved. cut back on IV fluids and stop IV fluids when patient can take tube feeds
# Abnormal carotid on CT- ultrasound with more than 70% stenosis. OP Vascular eval discussed with son
# Nontraumatic rhabdomyolysis-stop IV fluids
# Elevated AST and ALT-likely secondary to Rhabdo
# Constipation-bowel regimen
# Dysphagia-speech evaluation ongoing. Aspiration precautions. NPO
# Hypertension-hold losartan. Continue Coreg 3.125 twice daily and nifedipine 30 mg daily (while off of losartan)
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
# Coronary artery disease-continue Coreg, ASA
# HTN-Norvasc and Coreg NG tube. As needed hydralazine
# Nonobstructive nephrolithiasis
# Advanced dementia-for 2 years . Hold Aricept, memantine.BuSpar ( for behavior disturbance)
# GERD-PPI
# Hypoalbuminemia
# DVT prophylaxis-Lovenox
# DNR/DNI
D/W RN
Overall prognosis poor to her. Poor quality of life discussed with . Son is coming from [place].
Anticipated Discharge: > 48 hours
Subjective/Interval History
-
Date of Service: August 01, 2024
Objective Data
-
Labs:
Laboratory Results
08/01/24
07:37
WBC 6.3
Hgb 9.2 L
Hct 26.2 L
Plt Count 392
Sodium 135
Potassium 3.0 L
Chloride 106
Carbon Dioxide 23
BUN 11
Creatinine 1.3
Glucose 152 H
Calcium 8.1 L
Total Bilirubin 0.7
AST 63 H
ALT 50
Alkaline Phosphatase 90
Vital Signs:
Vital Signs
Temp Pulse Resp BP Pulse Ox
98.4 F 61 14 141/65 97
08/01/24 07:28 08/01/24 07:28 08/01/24 07:28 08/01/24 10:38 08/01/24 11:07
I&O
07/31/24 08/01/24 08/02/24
06:59 06:59 06:59
Intake Total 590 / 590 1070 / 1070
Balance 590 / 590 1070 / 1070
[2024-08-01 15:25] VITALS: BP 165/63
[2024-08-01] MEDS: NORVASC 10 MG TUBE (15:28)
[2024-08-01 17:53] LABS: Glucose - Point of Care 137 mg/dl (70-99)
[2024-08-01] MEDS: COREG 3.125 MG TUBE (21:32)
[2024-08-02 00:12] LABS: Glucose - Point of Care 143 mg/dl (70-99)
[2024-08-02 00:26] VITALS: BP 151/56
[2024-08-02] MEDS: NOVOLOG FLEXPEN-LOW RESISTANCE SC ×4 (01:06→18:23)
[2024-08-02] MEDS: D5W IV (02:28)
[2024-08-02] MEDS: LOVENOX 50 MG SC ×2 (03:59→16:56)
[2024-08-02] MEDS: ZOSYN 50 IV ×4 (06:01→23:22)
[2024-08-02 06:34] LABS: Glucose - Point of Care 142 mg/dl (70-99)
[2024-08-02] MEDS: ASPIRIN 300 MG RECTAL (07:53)
[2024-08-02] MEDS: THIAMINE INJECTION 200 MG IV (07:54)
[2024-08-02] MEDS: NORVASC 10 MG TUBE (07:57)
[2024-08-02] MEDS: COREG 3.125 MG TUBE ×2 (07:57→21:41)
[2024-08-02 08:19] LABS: Blood Urea Nitrogen 11 mg/dl (9-20); Calcium 8.3 mg/dl (8.4-10.2); Carbon Dioxide 23 mmol/L (22-30); Chloride 108 mmol/L (98-107); Estimated Creatinine Clearance 34 ml/min; Glucose 134 mg/dl (70-99); Magnesium 2.1 mg/dl (1.6-2.3); Phosphorus 2.6 mg/dl (2.5-4.5); Sodium 138 mmol/L (135-145); eGFR > 60.00
[2024-08-02 08:27] VITALS: BP 126/57
[2024-08-02] MEDS: NEUTRA-PHOS POWDER PACKET 250 MG TUBE ×4 (08:31→21:41)
[2024-08-02 12:08] LABS: Glucose - Point of Care 125 mg/dl (70-99)
[2024-08-02] MEDS: NSS (PRESERVATIVE FREE) 10 ML IV ×2 (12:11→23:20)
[2024-08-02] MEDS: PROTONIX IV 40 MG IV ×2 (12:11→23:20)
--- NOTE | 2024-08-02 13:56 | W.PN.HOSP.TC ---
Today's Communication/Plan
-
Await family decision regarding plan
Assessment / Plan
Assessment / Plan
84-year-old with advanced dementia brought in from SNF with fever and lethargy. Patient was recent admitted to [facility] after a fall was lethargic subsequently improved and was discharged to rehab. She developed lethargy again 2 days
prior to admission. Admitted to hospital for UTI/pneumonia. MRI of the brain with no acute changes. Patient improved was awake and interacting with normal bowel with hydration and antibiotics. Urine culture negative antibiotic switched to cover
pneumonia 3 days after improvement developed somnolence again workup showed right lower lobe pneumonia with concern of aspiration
07/23/2024 CT of the chest-bilateral lower lobe consolidation compatible with subsegmental atelectasis with tiny left pleural effusion. Cannot exclude pneumonia particularly in the left lower lobe small bilateral peripheral lung parenchymal
groundglass opacities. Mild cardiomegaly
07/23/2024 MRI- no acute infarct 0ld infarct with encephalomalacia and gliosis involving posterior left MCA distribution. Mild sinusitis.
07/21/2024-CT abdomen pelvis-large volume stool filling the descending rectum, mild distention of the rectum with some suspected mild perirectal stranding findings consistent with stercoral colitis.
07/27/2024-CT of the T-spine-no vertebral compression deformity. Minor disc space narrowing. No canal stenosis or foraminal stenosis or abnormal enhancement.
07/27/2024-CT of the P-vedqo-aysaybbxlcao changes incidental 70 to 80% stenosis of the proximal left ICA nonspecific pneumonitis in the upper lung zones.
07/28/24- EEG- NO Sz.
07/28/24- ECHO- Normal Biv size and function . No regional WMA.
07/29/2024-new moderate to severe groundglass opacity in the left upper lobe and mild groundglass opacity in the right upper lobe-new bilateral upper lobe pneumonia. Albuterol pulmonary edema less likely. Moderate subpleural airspace consolidation
in the left lower lobe unchanged
07/28/2024-occlusive DVT in the right cephalic vein
07/28/2024-more than 70% stenosis of the left carotid bulb, soft plaque. Calcified plaque in the right carotid bulb less than 50% stenosis
pt's pupils equal and reactive
Awake , Does not interact. ( told me yesterday that pt cannot say his name)
ABd SOft NT
DHT in
# TME/delirium
Unclear reason
Possible advanced dementia
MRI negative for stroke
Bilateral pneumonia-likely aspiration pneumonia
Neurology consulted
Blood cultures and urine cultures negative
Was treated with ceftriaxone on 07/20, Zosyn 07/21-07/24, doxycycline and Unasyn 07/24- 07/26 , 07/27 - Vanco and Cefepime- All discontinued. 07/29/2024- Zosyn started.
COVID and influenza negative
TSH and cortisol within normal limits
Ammonia level normal
Speech evaluation noted- Keep NPO
Psychiatry consulted-no changes in medicines
Neurology evaluated pt.- recommends palliative eval/hospice
EEG neg
Lumbar puncture held per neuro Discussion with the patient's , family does not want.
DHT feeding started 07/31/24 till family makes decision re Hospice or not
Head of bed elevation and aspiration precautions
# Edema right foot - USS negative for DVT
Cephalic vein thrombus right arm
Continue Lovenox
# Anemia
Negative FOBT
Transfused with 1 unit of blood 07/26/24
Completed 5 days of IV iron for NOREEN
Hematology eval noted
# Hypokalemia-follow. Replace as needed
# Hypernatremia-resolved.
# Hypophosphatemia-replace
# Acute kidney injury-Resolved.
# Abnormal carotid on CT- ultrasound with more than 70% stenosis. OP Vascular eval discussed with son
# Nontraumatic rhabdomyolysis-Resolved
# Elevated AST and ALT-likely secondary to Rhabdo
# Constipation-bowel regimen
# Dysphagia-speech evaluation ongoing. Aspiration precautions. NPO till speech clears
# Hypertension-hold losartan. Continue Coreg 3.125 twice daily and nifedipine 30 mg daily (while off of losartan)
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
# Coronary artery disease-continue Coreg, ASA
# HTN-Norvasc and Coreg NG tube. As needed hydralazine
# Nonobstructive nephrolithiasis
# Advanced dementia-for 2 years . Hold Aricept, memantine.BuSpar ( for behavior disturbance)
# GERD-PPI
# Hypoalbuminemia
# DVT prophylaxis-Lovenox
# DNR/DNI
D/W RN
Overall prognosis poor to her. Poor quality of life discussed with . Son is coming from [place].
Await family decision.
Anticipated Discharge: > 48 hours
Subjective/Interval History
-
Date of Service: August 02, 2024
Objective Data
-
Labs:
Laboratory Results
08/02/24
07:00
Sodium 138
Potassium 4.0 D
Chloride 108 H
Carbon Dioxide 23
BUN 11
Creatinine 1.2
Glucose 134 H
Calcium 8.3 L
Vital Signs:
Vital Signs
Temp Pulse Resp BP Pulse Ox
96.9 F L 55 19 126/57 97
08/02/24 08:27 08/02/24 08:27 08/02/24 08:27 08/02/24 08:27 08/02/24 08:27
I&O
08/01/24 08/02/24 08/03/24
06:59 06:59 06:59
Intake Total 1070 / 1070
Balance 1070 / 1070
[2024-08-02 15:55] VITALS: BP 130/58
[2024-08-02 18:17] LABS: Glucose - Point of Care 138 mg/dl (70-99)
[2024-08-02 23:00] VITALS: BP 127/50
[2024-08-03 00:39] LABS: Glucose - Point of Care 148 mg/dl (70-99)
[2024-08-03] MEDS: NOVOLOG FLEXPEN-LOW RESISTANCE SC ×4 (00:40→18:24)
[2024-08-03 04:57] LABS: Blood Urea Nitrogen 15 mg/dl (9-20); Calcium 8.4 mg/dl (8.4-10.2); Carbon Dioxide 24 mmol/L (22-30); Chloride 106 mmol/L (98-107); Estimated Creatinine Clearance 31 ml/min; Glucose 134 mg/dl (70-99); Magnesium 2.1 mg/dl (1.6-2.3); Phosphorus 3.1 mg/dl (2.5-4.5); Potassium 4.1 mmol/L (3.5-5.1); Sodium 139 mmol/L (135-145); eGFR 54.85
[2024-08-03] MEDS: LOVENOX 50 MG SC ×2 (05:05→16:54)
[2024-08-03] MEDS: ZOSYN 50 IV ×3 (05:06→18:00)
[2024-08-03 06:12] LABS: Glucose - Point of Care 132 mg/dl (70-99)
[2024-08-03 07:05] VITALS: BP 155/71
[2024-08-03] MEDS: NORVASC 10 MG TUBE (08:29)
[2024-08-03] MEDS: COREG 3.125 MG TUBE ×2 (08:29→21:15)
[2024-08-03] MEDS: ASPIRIN 300 MG RECTAL (08:39)
[2024-08-03] MEDS: THIAMINE INJECTION 200 MG IV (08:39)
[2024-08-03] MEDS: NEUTRA-PHOS POWDER PACKET 250 MG TUBE ×4 (08:39→21:17)
[2024-08-03] MEDS: PROTONIX IV 40 MG IV (12:24)
[2024-08-03 12:25] LABS: Glucose - Point of Care 138 mg/dl (70-99)
[2024-08-03] MEDS: NSS (PRESERVATIVE FREE) 10 ML IV (12:27)
--- NOTE | 2024-08-03 14:32 | W.PN.HOSP.TC ---
Today's Communication/Plan
-
Speech evaluation while family is here tomorrow
If fails we will request GI for PEG tube
Assessment / Plan
Assessment / Plan
84-year-old with advanced dementia brought in from SNF with fever and lethargy. Patient was recent admitted to [facility] after a fall was lethargic subsequently improved and was discharged to rehab. She developed lethargy again 2 days
prior to admission. Admitted to hospital for UTI/pneumonia. MRI of the brain with no acute changes. Patient improved was awake and interacting with normal bowel with hydration and antibiotics. Urine culture negative antibiotic switched to cover
pneumonia 3 days after improvement developed somnolence again workup showed right lower lobe pneumonia with concern of aspiration
07/23/2024 CT of the chest-bilateral lower lobe consolidation compatible with subsegmental atelectasis with tiny left pleural effusion. Cannot exclude pneumonia particularly in the left lower lobe small bilateral peripheral lung parenchymal
groundglass opacities. Mild cardiomegaly
07/23/2024 MRI- no acute infarct 0ld infarct with encephalomalacia and gliosis involving posterior left MCA distribution. Mild sinusitis.
07/21/2024-CT abdomen pelvis-large volume stool filling the descending rectum, mild distention of the rectum with some suspected mild perirectal stranding findings consistent with stercoral colitis.
07/27/2024-CT of the T-spine-no vertebral compression deformity. Minor disc space narrowing. No canal stenosis or foraminal stenosis or abnormal enhancement.
07/27/2024-CT of the B-xhzrg-wkoccmjktkgp changes incidental 70 to 80% stenosis of the proximal left ICA nonspecific pneumonitis in the upper lung zones.
07/28/24- EEG- NO Sz.
07/28/24- ECHO- Normal Biv size and function . No regional WMA.
07/29/2024-new moderate to severe groundglass opacity in the left upper lobe and mild groundglass opacity in the right upper lobe-new bilateral upper lobe pneumonia. Albuterol pulmonary edema less likely. Moderate subpleural airspace consolidation
in the left lower lobe unchanged
07/28/2024-occlusive DVT in the right cephalic vein
07/28/2024-more than 70% stenosis of the left carotid bulb, soft plaque. Calcified plaque in the right carotid bulb less than 50% stenosis
pt's pupils equal and reactive
Awake , Does not interact.
ABd Soft NT
DHT in
# TME/delirium
Unclear reason
Possible advanced dementia
MRI negative for stroke
Bilateral pneumonia-likely aspiration pneumonia
Neurology consulted
Blood cultures and urine cultures negative
Was treated with ceftriaxone on 07/20, Zosyn 07/21-07/24, doxycycline and Unasyn 07/24- 07/26 , 07/27 - Vanco and Cefepime- All discontinued. 07/29/2024- Zosyn started.
COVID and influenza negative
TSH and cortisol within normal limits
Ammonia level normal
Speech evaluation noted- Keep NPO
Psychiatry consulted-no changes in medicines
Neurology evaluated pt.- recommends palliative eval/hospice
EEG neg
Lumbar puncture held per neuro Discussion with the patient's , family does not want.
DHT feeding started 07/31/24
Head of bed elevation and aspiration precautions
# Edema right foot - USS negative for DVT
Cephalic vein thrombus right arm
Continue Lovenox
# Anemia
Negative FOBT
Transfused with 1 unit of blood 07/26/24
Completed 5 days of IV iron for NOREEN
Hematology eval noted
# Hypokalemia-follow. Replace as needed
# Hypernatremia-resolved.
# Hypophosphatemia-replace
# Acute kidney injury-Resolved.
# Abnormal carotid on CT- ultrasound with more than 70% stenosis. OP Vascular eval discussed with son
# Nontraumatic rhabdomyolysis-Resolved
# Elevated AST and ALT-likely secondary to Rhabdo
# Constipation-bowel regimen
# Dysphagia-speech evaluation ongoing. Aspiration precautions. NPO till speech clears
# Hypertension-Hold losartan. Continue Coreg 3.125 twice daily and Norvasc 10 mg daily (while off of losartan)
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
# Coronary artery disease-continue Coreg, ASA
# HTN-Norvasc and Coreg NG tube. As needed hydralazine
# Nonobstructive nephrolithiasis
# Advanced dementia-for 2 years . Continue Aricept, Memantine. Hold BuSpar ( for behavior disturbance)
# GERD-PPI
# Hypoalbuminemia
# DVT prophylaxis-Lovenox
# DNR/DNI
D/W RN
Overall prognosis poor to her. Poor quality of life discussed with family today. and 3 children were at bedside. I discussed that his dementia is advanced at this point but they do not want to deprive him of food. Therefore they are
requesting a PEG tube if patient does not pass speech and swallow evaluation
They are aware that he can still aspirate. Family also requested that we restart Aricept and Namenda which I told him at this point does not really help him however I will restart at their request.
Per discussion with GI we do not need to hold aspirin for a PEG tube
Speech therapy to come and evaluate the patient while the family is here tomorrow and if he fails again I will consult GI for PEG tube placement.
I also felt that family leaning towards hospice once the PEG tube is placed. They are totally against the patient 'starving' . I discussed that while patient is on hospice he is allowed to have p.o. intake however they feel that it is not going to
be adequate. We discussed this could prolong things.
time spent over 50 min
Poor prognosis
Anticipated Discharge: > 48 hours
Subjective/Interval History
-
Date of Service: August 03, 2024
Objective Data
-
Labs:
Laboratory Results
08/03/24
04:02
Sodium 139
Potassium 4.1
Chloride 106
Carbon Dioxide 24
BUN 15
Creatinine 1.3
Glucose 134 H
Calcium 8.4
Vital Signs:
Vital Signs
Temp Pulse Resp BP Pulse Ox
98 F 67 22 155/71 98
08/03/24 07:05 08/03/24 07:05 08/03/24 07:05 08/03/24 07:05 08/03/24 07:05
I&O
08/02/24 08/03/24 08/04/24
06:59 06:59 06:59
Intake Total 1070 / 1070 840 / 840
Output Total 300 / 300
Balance 1070 / 1070 540 / 540
[2024-08-03 15:00] VITALS: BP 140/67
--- NOTE | 2024-08-03 15:00 | PTCARENOTE ---
pt's 2 sons would like to meet with speech therapy at bedside between 12-4 per patient's and they are considering peg tube. Dr. Shetty made aware would like this to happen in am rather than 12-4 if can be arranged. speech updated and next
shift RN made aware to follow up with this.
[2024-08-03 18:20] LABS: Glucose - Point of Care 113 mg/dl (70-99)
--- NOTE | 2024-08-03 19:42 | PTCARENOTE ---
patient opens eyes, does not interact with nursing, appears comfortable, turns with max assist x2 and dependent with all care, incontinent of urine. condom cath fell off, Covidien pad in place, tolerating tube feedings, vss, will continue to
monitor.
[2024-08-03] MEDS: NAMENDA 5 MG PO (21:15)
[2024-08-03] MEDS: ARICEPT 10 MG PO (21:17)
[2024-08-03 23:00] VITALS: BP 146/63
[2024-08-03 23:55] LABS: Glucose - Point of Care 136 mg/dl (70-99)
[2024-08-04] MEDS: PROTONIX IV 40 MG IV ×2 (00:20→12:49)
[2024-08-04] MEDS: NSS (PRESERVATIVE FREE) 10 ML IV ×2 (00:20→12:49)
[2024-08-04] MEDS: ZOSYN 50 IV ×5 (00:21→23:04)
[2024-08-04] MEDS: LOVENOX 50 MG SC ×2 (05:22→17:39)
[2024-08-04 06:06] LABS: Glucose - Point of Care 147 mg/dl (70-99)
[2024-08-04] MEDS: NOVOLOG FLEXPEN-LOW RESISTANCE SC ×4 (06:24→23:59)
[2024-08-04 07:33] VITALS: BP 135/52
[2024-08-04 07:57] LABS: Hematocrit 25.6 % (39.0-52.0); Hemoglobin 8.8 g/dL (13.0-18.0); Mean Corp Hgb Conc. 34.4 g/dL (33.0-37.0); Mean Corpuscular Hgb 31.1 pg (27.0-31.0); Mean Corpuscular Volume 90.5 fL (80.0-94.0); Mean Platelet Volume 9.4 fL (7.4-10.4); Platelet Count 487 10^3/uL (130-400); Red Blood Cell Count 2.83 10^6/uL (4.70-6.10); Red Cell Dist. Width 14.8 % (11.5-14.5); White Blood Cell Count 8.5 10^3/uL (4.8-10.8)
[2024-08-04 07:59] LABS: Blood Urea Nitrogen 16 mg/dl (9-20); Calcium 8.8 mg/dl (8.4-10.2); Carbon Dioxide 23 mmol/L (22-30); Chloride 107 mmol/L (98-107); Estimated Creatinine Clearance 31 ml/min; Glucose 137 mg/dl (70-99); Magnesium 2.2 mg/dl (1.6-2.3); Potassium 4.6 mmol/L (3.5-5.1); Sodium 138 mmol/L (135-145); eGFR 54.85
[2024-08-04] MEDS: ASPIRIN 300 MG RECTAL (08:10)
[2024-08-04] MEDS: NAMENDA 5 MG PO (08:10)
[2024-08-04] MEDS: NORVASC 10 MG TUBE (08:10)
[2024-08-04] MEDS: THIAMINE INJECTION 200 MG IV (08:10)
[2024-08-04] MEDS: NEUTRA-PHOS POWDER PACKET 250 MG TUBE ×4 (08:10→23:00)
[2024-08-04] MEDS: COREG 3.125 MG TUBE ×2 (08:12→22:53)
[2024-08-04 10:01] VITALS: BP 132/55; PULSE 61
[2024-08-04 10:30] VITALS: BP 132/55; PULSE 61
[2024-08-04 11:49] LABS: Glucose - Point of Care 158 mg/dl (70-99)
[2024-08-04] MEDS: NOVOLOG FLEXPEN-LOW RESISTANCE 1 UNITS SC (12:48)
--- NOTE | 2024-08-04 13:35 | W.PN.HOSP.TC ---
Today's Communication/Plan
-
GI consult for PEG
Assessment / Plan
Assessment / Plan
84-year-old with advanced dementia brought in from SNF with fever and lethargy. Patient was recent admitted to [facility] after a fall was lethargic subsequently improved and was discharged to rehab. She developed lethargy again 2 days
prior to admission. Admitted to hospital for UTI/pneumonia. MRI of the brain with no acute changes. Patient improved was awake and interacting with normal bowel with hydration and antibiotics. Urine culture negative antibiotic switched to cover
pneumonia 3 days after improvement developed somnolence again workup showed right lower lobe pneumonia with concern of aspiration
07/23/2024 CT of the chest-bilateral lower lobe consolidation compatible with subsegmental atelectasis with tiny left pleural effusion. Cannot exclude pneumonia particularly in the left lower lobe small bilateral peripheral lung parenchymal
groundglass opacities. Mild cardiomegaly
07/23/2024 MRI- no acute infarct 0ld infarct with encephalomalacia and gliosis involving posterior left MCA distribution. Mild sinusitis.
07/21/2024-CT abdomen pelvis-large volume stool filling the descending rectum, mild distention of the rectum with some suspected mild perirectal stranding findings consistent with stercoral colitis.
07/27/2024-CT of the T-spine-no vertebral compression deformity. Minor disc space narrowing. No canal stenosis or foraminal stenosis or abnormal enhancement.
07/27/2024-CT of the H-aeylx-ztocximskobl changes incidental 70 to 80% stenosis of the proximal left ICA nonspecific pneumonitis in the upper lung zones.
07/28/24- EEG- NO Sz.
07/28/24- ECHO- Normal Biv size and function . No regional WMA.
07/29/2024-new moderate to severe groundglass opacity in the left upper lobe and mild groundglass opacity in the right upper lobe-new bilateral upper lobe pneumonia. Albuterol pulmonary edema less likely. Moderate subpleural airspace consolidation
in the left lower lobe unchanged
07/28/2024-occlusive DVT in the right cephalic vein
07/28/2024-more than 70% stenosis of the left carotid bulb, soft plaque. Calcified plaque in the right carotid bulb less than 50% stenosis
pt's pupils equal and reactive
Awake , Does not interact.
ABd Soft NT
DHT in
# TME/delirium
Unclear reason
Possible advanced dementia
MRI negative for stroke
Bilateral pneumonia-likely aspiration pneumonia
Neurology consulted
Blood cultures and urine cultures negative
Was treated with ceftriaxone on 07/20, Zosyn 07/21-07/24, doxycycline and Unasyn 07/24- 07/26 , 07/27 - Vanco and Cefepime- All discontinued. 07/29/2024- Zosyn started.
COVID and influenza negative
TSH and cortisol within normal limits
Ammonia level normal
Speech evaluation noted- Keep NPO
Psychiatry consulted-no changes in medicines
Neurology evaluated pt.- recommends palliative eval/hospice
EEG neg
Lumbar puncture held per neuro Discussion with the patient's , family does not want.
DHT feeding started 07/31/24
Head of bed elevation and aspiration precautions
# Edema right foot - USS negative for DVT
Cephalic vein thrombus right arm
Continue Lovenox
# Anemia
Negative FOBT
Transfused with 1 unit of blood 07/26/24
Completed 5 days of IV iron for NOREEN
Hematology eval noted
# Hypokalemia-follow. Replace as needed
# Hypernatremia-resolved.
# Hypophosphatemia-replace
# Acute kidney injury-Resolved.
# Abnormal carotid on CT- ultrasound with more than 70% stenosis. OP Vascular eval discussed with son
# Nontraumatic rhabdomyolysis-Resolved
# Elevated AST and ALT-likely secondary to Rhabdo. Better.
# Constipation-Resolved. bowel regimen
# Dysphagia-speech evaluation ongoing. Aspiration precautions. NPO till speech clears
# Hypertension-Hold losartan. Continue Coreg 3.125 twice daily and Norvasc 10 mg daily (while off of losartan)
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
# Coronary artery disease-continue Coreg, ASA
# HTN-Norvasc and Coreg NG tube. As needed hydralazine
# Nonobstructive nephrolithiasis
# Advanced dementia-for 2 years . Continue Aricept, Memantine. Hold BuSpar ( for behavior disturbance)
# GERD-PPI
# Hypoalbuminemia
# DVT prophylaxis-Lovenox
# DNR/DNI
D/W RN
Overall prognosis poor to her. Poor quality of life discussed with family today. and 3 children were at bedside. I discussed that his dementia is advanced at this point but they do not want to deprive him of food. Therefore they are
requesting a PEG tube if patient does not pass speech and swallow evaluation
They are aware that he can still aspirate. Family also requested that we restart Aricept and Namenda which I told him at this point does not really help him however I restarted at their request.
Per discussion with GI we do not need to hold aspirin for a PEG tube
Speech therapy to come and evaluate the patient while the family is here and if he fails again for PEG tube placement.
Poor prognosis
Anticipated Discharge: > 48 hours
Subjective/Interval History
-
Date of Service: August 04, 2024
Objective Data
-
Labs:
Laboratory Results
08/04/24
06:46
WBC 8.5
Hgb 8.8 L
Hct 25.6 L
Plt Count 487 H D
Sodium 138
Potassium 4.6
Chloride 107
Carbon Dioxide 23
BUN 16
Creatinine 1.3
Glucose 137 H
Calcium 8.8
Vital Signs:
Vital Signs
Temp Pulse Resp BP Pulse Ox
98.8 F 64 16 135/52 95
08/04/24 07:33 08/04/24 07:33 08/04/24 07:33 08/04/24 07:33 08/04/24 07:33
I&O
08/03/24 08/04/24 08/05/24
06:59 06:59 06:59
Intake Total 840 / 840 940 / 940
Output Total 300 / 300 500 / 500
Balance 540 / 540 440 / 440
--- NOTE | 2024-08-04 13:54 | CM ---
chart reviewed
CM consult completed for hospice informational
tt Lala Mcguire liaison
PLAN: Lala to provide hospice information
--- NOTE | 2024-08-04 14:30 | HOSPNOTE ---
Spoke with sons and discussed hospice and the philosophy. The sons will speak with step mom and decide about PEG tube placement. If PEG tube is not wanted the family will choose hospice services. The son will call me back tomorrow with a decision.
--- NOTE | 2024-08-04 14:30 | PTOTSP ---
Speech Therapy Follow-up:
TUBE LASER OPERATOR asked to reassess pt while family present to determine if PEG placement warranted. Pt's 2 sons present at bedside. Pt somnolent with brief eye opening. Pt not receptive to oral care. Pt unable to volitionally open oral cavity despite thermal
tactile stim and placing puree bolus on lips. Occasional spontaneous swallows observed. Further PO trials deferred 2/2 safety concerns.
Discussed at length with pt's sons the nature of dysphagia in the advanced dementia population and the associated high risk of aspiration, specifically in relation to pt's presentation and recent development of aspiration pneumonia following
cautious diet initiation. Reviewed options for continuing oral diet versus PEG placement. Provided education on the contraindications of PEG placement in the advanced dementia population, including evidence that PEG does not eliminate aspiration
risk, improve quality of life, or significantly prolong life expectancy. Extensive education provided on the risks of aspiration and related pulmonary complications, emphasizing current research that supports careful hand feeding for comfort in this
population. From an TUBE LASER OPERATOR perspective, PEG placement does not appear indicated at this time; however GI has been consulted for further evaluation and management. decommissioning well site manager entered room midway through session and will follow up separately with family.
All questions answered at this time. TUBE LASER OPERATOR to continue to follow pending goc.
Recommend:
1. NPO
2. Meds non-oral
3. Oral care 3-5x daily
4. HOB at least 30 degrees
5. Palliative care consult
6. Will f/u to re-eval if JULIENNE appropriate pending GOC
--- NOTE | 2024-08-04 14:43 | W.PN.ID1 ---
Date of Service
Date of Service: August 04, 2024
Today's Communication
Continue antibiotics for today. Await family decision regarding possible palliative care/hospice type services.
Assessment / Plan
Intermittent fevers
- Overall down and improved
- suspect 2* recurrent aspiration syndrome
Leukocytosis; improved
- Current resolution of prior left shift
Encephalopathy
Hypernatremia
Elevated CK
Normal procalcitonin
Advanced dementia
CAD
HTN
Insomnia
Recommendations:
Suspect recurrent aspiration aspiration syndrome.
- abx reinstituted, although with aspiration syndrome, no clear endpoint.
Continue with strict aspiration precautions.
Follow for improvement while receiving tube feeds via Dobbhoff.
Spoke at length with patient's sons who were in the room. Related overall morbidity of patient (currently bedbound, nonambulatory with aspiration syndrome) and the likely poor outcomes moving forward. They report that they would not like to see
their father starve, and that is why they are considering a PEG. They had questions about hospice and I related on a very superficial level the utility of hospice services, but I recommended they meet with the full hospice staff for further
in-depth discussions of what hospice can provide for their father. This was related to the high risk case manager, and she will place the consult. Patient currently DNR.
Hospitalist informed.
����������������������������������������������������������
Chief Complaint
-: Fever and Other (Pulmonary infiltrate)
Subjective / Review of Systems
Review of Systems: No Fever
Vital Signs / Physical Exam
Vital Signs
Vital Signs
Temp Pulse Resp BP Pulse Ox
98.8 F 64 16 135/52 95
08/04/24 07:33 08/04/24 07:33 08/04/24 07:33 08/04/24 07:33 08/04/24 07:33
Physical Exam
Constitutional: Comfortable, Chronically Ill and Non-toxic
Head: Other (Dobbhoff in place.)
Cardiovascular: Regular Rate
Pulmonary: Coarse, Non Labored and Other (Poor effort.)
Gastrointestinal: Soft and Non Tender
Extremities: Negative Edema, Cyanosis or Erythema
Skin: Warm and Dry
Neurological: Awake and Other (Responsive to voice.)
Psychological: Calm
Objective Data
Lab Data
Lab Results
08/04/24 06:46
08/04/24 06:46
PT 16.1 Sec (11.4-14.6) H 07/30/24 06:18
INR 1.26 07/30/24 06:18
Estimated Creat Clear 31 ml/min 08/04/24 06:46
Lactic Acid 1.5 mmol/L (0.7-2.0) 07/20/24 21:34
Total Bilirubin 0.7 mg/dl (0.2-1.3) 08/01/24 07:37
AST 63 U/L (17-59) H 08/01/24 07:37
ALT 50 U/L (0-50) 08/01/24 07:37
Alkaline Phosphatase 90 U/L (38-126) 08/01/24 07:37
Most recent labs reviewed.
Micro Results:
07/26/24 13:20 Blood Culture - Final
Blood/Venous No Growth - Final Report
07/26/24 12:50 Blood Culture - Final
Blood/Venous No Growth - Final Report
07/26/24 23:48 Urine Culture - Final
Urine NO GROWTH
07/20/24 21:45 Blood Culture - Final
Blood/Venous No Growth - Final Report
07/20/24 21:34 Blood Culture - Final
Blood/Venous No Growth - Final Report
07/23/24 12:13 MRSA Screen - Final
Nose No Methicillin Resistant Staphylococcus aureus isolated.
07/20/24 21:34 Urine Culture - Final
Urine
07/21/24 21:34 Legionella Urinary Antigen - Final
Urine Negative for Legionella pneumophila Serogroup 1 antigen.
A negative result does not rule out the possiblity of
Legionella infection due to other serogroups or species of
Legionella. Clinical correlation is recommended.
Streptococcus pneumoniae Antigen (M - Final
Negative for Streptococcus pneumoniae antigen.
A negative result does not exclude infection with
Streptococcus pneumoniae. Clinical correlation is
recommended.
07/20/24 21:34 Influenza Types A & B (BELÉN) - Final
Nasal Swab Negative for Influenza A & B, NAAT
Negative results must be combined with clinical observations
and patient history.
Nucleic Acid Amplification test (NAAT)performed on the
[employer] platform.
Imaging:
07/29/2024 CXR (portable): New moderate to severe groundglass opacity in the left upper lobe, mild groundglass opacity in the right upper lobe. DDx includes PNA, pulmonary edema or pneumonitis.
07/26/24 CXR (portable): Interval development of patchy parenchymal opacity in the left lower lobe and right perihilar region.
07/23/2024 CT chest without contrast: Bilateral lower lobe opacifications compatible with subsegmental atelectasis and tiny left pleural effusion. Cannot exclude pneumonia particularly in the left lower lobe. Small bilateral peripheral lung
parenchymal groundglass opacities noted. Mild cardiomegaly seen. Please see full dictation for additional detail.
07/23/24 MRI brain without contrast: No acute infarct seen. Old infarct with encephalomalacia and gliosis posterior left MCA distribution. Overall atrophy seen.
07/22/24 CT head without contrast: No acute intracranial abnormalities noted.
07/21/2024 CT abdomen/pelvis without contrast: Large volume stool filling the descending rectum, with mild distention of the rectum with some suspected mild perirectal stranding. Findings are suggestive of stercoral colitis. No intestinal
obstruction or free air. Please see full dictation for additional detail.
[2024-08-04 15:21] VITALS: BP 127/54
--- NOTE | 2024-08-04 16:43 | CON.GI ---
Addendum entered and electronically signed by Arley Mendiola MD 08/04/24 17:54:
The patient was seen and examined by me independently in collaboration with the nurse practitioner.
Past medical history/social history/medications/allergies/family history reviewed.
Lab data and imaging data reviewed.
84-year-old male past medical history of dementia, CAD, prior stroke on Plavix presenting for July 20 with KAITLIN, hyponatremia, fever possible pneumonia from aspiration, possible stercoral colitis. Patient is contracted. I discussed with the son
at bedside. They are discussing hospice. This seems to be appropriate given his overall clinical health. If he is going hospice/palliative service I would not recommend a PEG tube in this setting. Given his overall clinical status, PEG would
likely not be the best option for him. He has mittens on he may tear the PEG out. Hopefully on further discussion with the family with hospice and palliative care, they will decide to focus on comfort.
There is plan for further discussions tomorrow and we will check in to see any updates.
Original Note:
Consultation
-
Date/Time Consultation Requested: 08/04/24 1210
Date/Time Consultation Performed: 08/04/24 1630
Requesting Provider: Gina Whatley MD
Performing Provider: CHARU Hebert, Leigh Mendiola MD
Reason for Consultation: peg evaluation
Medical History
Chief Complaint / HPI
Chief Complaint: dysphagia
History of Present Illness:
Pt is an 84yo with hx dementia, CAD, prior stroke on Plavix, dysphagia, nephrolithiasis with admission 07/20 with hypernatremia, KAITLIN, fever with concern for PNA with possible aspiration and also noted possible stercoral colitis. Pt has been seen
by ID for abx. DHT was placed last week and family now discussing goals of care and would like to further discussed for peg. In review with son and audiology technician along with B[place]ian speaking . No hx chronic GI issues. He was noted with some
constipation on admission that has now resolved. He has had been on Plavix but has been on hold since 07/28. No hx EGD but did have stable colonoscopy in past. Prior to admission pt was at home but noted with mental decline with dementia and
minimal verbal over last few months.
Past Medical History
Past Medical History: CAD, CVA (prior 2010 ), HTN and Other (dementia hypernatremia, insomnia , nephrolithiasis )
Social History
Tobacco: Former Smoker
Alcohol: None
Drug: None
Personal:
Living: With Family
Employment: Retired
Family History
Family History: Reviewed & Not Pertinent
Allergies / Home Medications
Allergy/AdvReac Type Severity Reaction Status Date / Time
No Known Allergies Allergy Unverified 07/20/24 21:47
�Medication �Instructions �Recorded
acetaminophen 325 mg tablet 650 mg PO Q4H PRN temp >100.4 07/20/24
aspirin 81 mg tablet,delayed 81 mg PO DAILY 07/20/24
release
bisacodyl 10 mg rectal suppository 10 mg VT DAILY PRN if no result 07/20/24
from MOM
buspirone 10 mg tablet 10 mg PO TID 07/20/24
carvedilol 3.125 mg tablet 3.125 mg PO BID 07/20/24
clopidogrel 75 mg tablet (Plavix) 75 mg PO DAILY 07/20/24
cyanocobalamin (vitamin B-12) 1,000 mcg PO DAILY 07/20/24
1,000 mcg tablet
donepezil 10 mg tablet 10 mg PO HS 07/20/24
famotidine 20 mg tablet 20 mg PO DAILY 07/20/24
losartan 25 mg tablet 25 mg PO DAILY 07/20/24
magnesium hydroxide 400 mg/5 mL 30 ml PO HS PRN if no BM in 3 days 07/20/24
oral suspension (Milk of Magnesia)
memantine 5 mg tablet 5 mg PO BID 07/20/24
mirtazapine 7.5 mg tablet 7.5 mg PO HS 07/20/24
Review of Systems
-
Unable to obtain full review of systems at this time due to: Dementia
History Source: Patient and Family
Constitutional: Reports Weight Loss (over time )
EENT: Reports No Symptoms
Respiratory: Reports Cough
Abdomen/GI: Reports Constipated (now resolved )
: Reports No Symptoms
Skin: Reports No Symptoms
Neurological: Reports Weakness
Endocrine: Reports No Symptoms
Hematologic/Lymphatic: Reports No Symptoms
Vital Signs
Temp Pulse Resp BP Pulse Ox
98.7 F 67 16 127/54 97
08/04/24 15:21 08/04/24 15:21 08/04/24 15:21 08/04/24 15:21 08/04/24 15:21
Physical Exam
Exam
General: Other (chronic ill appearing )
HEENT: Normocephalic and Anicteric
Respiratory: Other (course cough )
Cardiac: Regular Rhythm
GI: Soft, Non Tender, Non Distended and Other (DHT in place )
Musculoskeletal: No Clubbing and No Cyanosis
Skin: Warm and Dry
Neuro: Other (non verbal, minimal response to stimuli )
Psych: Calm
Results
WBC 8.5 10^3/uL (4.8-10.8) 08/04/24 06:46
Hgb 8.8 g/dL (13.0-18.0) L 08/04/24 06:46
Hct 25.6 % (39.0-52.0) L 08/04/24 06:46
MCV 90.5 fL (80.0-94.0) 08/04/24 06:46
Plt Count 487 10^3/uL (130-400) H D 08/04/24 06:46
Absolute Neuts (auto) 4.2 10^3/uL (1.4-6.5) 07/28/24 06:22
PT 16.1 Sec (11.4-14.6) H 07/30/24 06:18
INR 1.26 07/30/24 06:18
Sodium 138 mmol/L (135-145) 08/04/24 06:46
Potassium 4.6 mmol/L (3.5-5.1) 08/04/24 06:46
Chloride 107 mmol/L (98-107) 08/04/24 06:46
Carbon Dioxide 23 mmol/L (22-30) 08/04/24 06:46
BUN 16 mg/dl (9-20) 08/04/24 06:46
Creatinine 1.3 mg/dL (0.7-1.3) 08/04/24 06:46
Calcium 8.8 mg/dl (8.4-10.2) 08/04/24 06:46
Total Bilirubin 0.7 mg/dl (0.2-1.3) 08/01/24 07:37
AST 63 U/L (17-59) H 08/01/24 07:37
ALT 50 U/L (0-50) 08/01/24 07:37
Alkaline Phosphatase 90 U/L (38-126) 08/01/24 07:37
Diagnostic Image Results:
07/31 CR Abdomen, Portable - 1 View
Nasogastric tube with tip in proximal stomach.
07/29 CR Chest Portable - 1 View
1. New moderate to severe ground-glass opacity in the left upper lobe and mild ground-glass opacity in the right upper lobe which is likely secondary to NEW BILATERAL UPPER LOBE PNEUMONIA. Alveolar pulmonary edema or an acute inflammatory
pneumonitis are considered less likely.
2. Moderate subpleural airspace consolidation in the left lower lobe which appears unchanged and could be pneumonia or atelectasis.
07/21/24 CT Abd/pel Without Iv Or Oral
Large volume stool filling and mildly distending the rectum with some suspected mild perirectal stranding. Findings are at least suggestive of stercoral colitis. No intestinal obstruction or free air.
Likely small nonobstructing right renal calculus. No findings to suggest obstructive uropathy bilaterally.
Unremarkable appendix.
Prior GI Procedures:
EGD: none
Colonoscopy: stable per family years ago
Assessment / Plan
-
Pt is an 84yo with hx dementia, CAD, prior stroke on Plavix, dysphagia, nephrolithiasis with admission 07/20 with hypernatremia, KAITLIN, fever with concern for PNA with possible aspiration and also noted possible stercoral colitis. Pt has been seen
by ID for abx. DHT was placed last week and family now discussing goals of care and would like to further discussed for peg. In review with son and audiology technician along with B[place]ian speaking . No hx chronic GI issues. He was noted with some
constipation on admission that has now resolved. He has had been on Plavix but has been on hold since 07/28. No hx EGD but did have stable colonoscopy in past. Prior to admission pt was at home but noted with mental decline with dementia and
minimal verbal over last few months.
--peg evaluation
-concern for aspiration PNA
-advanced dementia
-constipation on admission CT with concern for stercoral colitis
-KAITLIN/hypernatremia on admission
-anemia
other med problems:
-CVA
-CAD
-nephrolithiasis
PLAN:
Etiology of dysphagia related to advanced dementia with recent Aspiration, hypernatremia
discussed with pt, son and risk and benefit
they also met to hospice and would like more time to consider options
they will meet with us again tomorrow for final decision
support given
Plavix was on hold since 07/28
cont current tube feeds for now
stools now daily with recent stercoral colitis noted on CT on admission
use of language line to assist with son and able to speak welsh
-
-
Thank you for consultation and allowing me to participate in the patient's care. Please call the absorption plant operator GI physician during the after hours with any questions or concerns.
[2024-08-04 18:00] LABS: Glucose - Point of Care 144 mg/dl (70-99)
[2024-08-04] MEDS: ARICEPT 10 MG TUBE (22:52)
[2024-08-04 23:00] VITALS: BP 172/64
[2024-08-04] MEDS: NAMENDA 5 MG TUBE (23:00)
[2024-08-04 23:54] LABS: Glucose - Point of Care 139 mg/dl (70-99)
[2024-08-05] MEDS: LOVENOX 50 MG SC (05:18)
[2024-08-05] MEDS: ZOSYN 50 IV ×2 (05:19→12:55)
[2024-08-05 05:52] LABS: Glucose - Point of Care 181 mg/dl (70-99)
[2024-08-05] MEDS: NOVOLOG FLEXPEN-LOW RESISTANCE 1 UNITS SC (06:33)
[2024-08-05 07:54] VITALS: BP 93/63
[2024-08-05 08:10] LABS: Blood Urea Nitrogen 18 mg/dl (9-20); Calcium 8.5 mg/dl (8.4-10.2); Carbon Dioxide 24 mmol/L (22-30); Chloride 106 mmol/L (98-107); Estimated Creatinine Clearance 29 ml/min; Glucose 160 mg/dl (70-99); Magnesium 2.3 mg/dl (1.6-2.3); Phosphorus 3.5 mg/dl (2.5-4.5); Potassium 4.6 mmol/L (3.5-5.1); Sodium 138 mmol/L (135-145); eGFR 50.18
[2024-08-05] MEDS: ASPIRIN 300 MG RECTAL (09:12)
[2024-08-05] MEDS: NEUTRA-PHOS POWDER PACKET 250 MG TUBE ×2 (09:12→12:56)
[2024-08-05] MEDS: NAMENDA 5 MG TUBE (09:12)
[2024-08-05] MEDS: THIAMINE INJECTION 200 MG IV (09:12)
[2024-08-05] MEDS: NSS 500 IV (09:13)
[2024-08-05] MEDS: COREG TUBE (09:25)
--- NOTE | 2024-08-05 09:25 | PTCARENOTE ---
Blood pressure decreased, MD made aware. AM blood pressure medications held per MD instruction.
[2024-08-05] MEDS: NORVASC TUBE (09:26)
--- NOTE | 2024-08-05 10:22 | HOSPNOTE ---
Addendum entered by Lay Mir RN 08/05/24 15:56:
Family reached out to state they are in agreement with comfort care/hospice. Patient transitioning to comfort measures today. Bed requested on 2 north. Patient will be evaluated for inpatient hospice level of care tomorrow. More information to
follow. CM and Attending aware and in agreement.
Original Note:
Spoke with son and they had a family meeting and discussed hospice. At this time the family would like him to be comfortable however needs to discuss with patients spouse. If they are all in agreement the Dobhoff would be removed and the mitts and
patient would be moved to a private room and placed on comfort measures. If the patient does not require an form of IV medications then the family would need to seek placement, home is not an option as spouse is unable to care for patient. Attending
updated with plan.
[2024-08-05 12:02] LABS: Glucose - Point of Care 120 mg/dl (70-99)
--- NOTE | 2024-08-05 12:35 | CM ---
family still having discussions on comfort care/hospice
PLAN: tbd, family in decision pocess
[2024-08-05] MEDS: NOVOLOG FLEXPEN-LOW RESISTANCE SC (12:47)
[2024-08-05] MEDS: PROTONIX IV 40 MG IV ×2 (12:56)
[2024-08-05] MEDS: NSS (PRESERVATIVE FREE) 10 ML IV ×2 (12:56)
--- NOTE | 2024-08-05 14:13 | W.PN.ID1 ---
Date of Service
Date of Service: August 05, 2024
Today's Communication
D/C abx.
Assessment / Plan
Intermittent fevers
- Overall down and improved
- suspect 2* recurrent aspiration syndrome
Leukocytosis; improved
- Current resolution of prior left shift
Encephalopathy
Hypernatremia
Elevated CK
Normal procalcitonin
Advanced dementia
CAD
HTN
Insomnia
Recommendations:
Suspect recurrent aspiration aspiration syndrome.
Family now amenable to hospice.
D/C further zosyn
Little more to offer from ID standpoint.
Will see again at your request.
����������������������������������������������������������
Chief Complaint
-: Fever and Other (Pulmonary infiltrate)
Subjective / Review of Systems
Review of Systems: No Fever
Vital Signs / Physical Exam
Vital Signs
Vital Signs
Temp Pulse Resp BP Pulse Ox
98.8 F 60 20 93/63 98
08/05/24 07:54 08/05/24 07:54 08/05/24 07:54 08/05/24 07:54 08/05/24 07:54
Physical Exam
Constitutional: Chronically Ill and Non-toxic
Pulmonary: Non Labored
Psychological: Calm
Objective Data
Lab Data
Lab Results
08/04/24 06:46
08/05/24 06:57
PT 16.1 Sec (11.4-14.6) H 07/30/24 06:18
INR 1.26 07/30/24 06:18
Estimated Creat Clear 29 ml/min 08/05/24 06:57
Lactic Acid 1.5 mmol/L (0.7-2.0) 07/20/24 21:34
Total Bilirubin 0.7 mg/dl (0.2-1.3) 08/01/24 07:37
AST 63 U/L (17-59) H 08/01/24 07:37
ALT 50 U/L (0-50) 08/01/24 07:37
Alkaline Phosphatase 90 U/L (38-126) 08/01/24 07:37
Most recent labs reviewed.
Micro Results:
07/26/24 13:20 Blood Culture - Final
Blood/Venous No Growth - Final Report
07/26/24 12:50 Blood Culture - Final
Blood/Venous No Growth - Final Report
07/26/24 23:48 Urine Culture - Final
Urine NO GROWTH
07/20/24 21:45 Blood Culture - Final
Blood/Venous No Growth - Final Report
07/20/24 21:34 Blood Culture - Final
Blood/Venous No Growth - Final Report
07/23/24 12:13 MRSA Screen - Final
Nose No Methicillin Resistant Staphylococcus aureus isolated.
07/20/24 21:34 Urine Culture - Final
Urine
07/21/24 21:34 Legionella Urinary Antigen - Final
Urine Negative for Legionella pneumophila Serogroup 1 antigen.
A negative result does not rule out the possiblity of
Legionella infection due to other serogroups or species of
Legionella. Clinical correlation is recommended.
Streptococcus pneumoniae Antigen (M - Final
Negative for Streptococcus pneumoniae antigen.
A negative result does not exclude infection with
Streptococcus pneumoniae. Clinical correlation is
recommended.
07/20/24 21:34 Influenza Types A & B (BELÉN) - Final
Nasal Swab Negative for Influenza A & B, NAAT
Negative results must be combined with clinical observations
and patient history.
Nucleic Acid Amplification test (NAAT)performed on the
[employer] platform.
Imaging:
07/29/2024 CXR (portable): New moderate to severe groundglass opacity in the left upper lobe, mild groundglass opacity in the right upper lobe. DDx includes PNA, pulmonary edema or pneumonitis.
07/26/24 CXR (portable): Interval development of patchy parenchymal opacity in the left lower lobe and right perihilar region.
07/23/2024 CT chest without contrast: Bilateral lower lobe opacifications compatible with subsegmental atelectasis and tiny left pleural effusion. Cannot exclude pneumonia particularly in the left lower lobe. Small bilateral peripheral lung
parenchymal groundglass opacities noted. Mild cardiomegaly seen. Please see full dictation for additional detail.
07/23/24 MRI brain without contrast: No acute infarct seen. Old infarct with encephalomalacia and gliosis posterior left MCA distribution. Overall atrophy seen.
07/22/24 CT head without contrast: No acute intracranial abnormalities noted.
07/21/2024 CT abdomen/pelvis without contrast: Large volume stool filling the descending rectum, with mild distention of the rectum with some suspected mild perirectal stranding. Findings are suggestive of stercoral colitis. No intestinal
obstruction or free air. Please see full dictation for additional detail.
Care Review
Plan reviewed with: Physician (Hospitalist)
--- NOTE | 2024-08-05 14:21 | W.PN.HOSP.TC ---
Today's Communication/Plan
-
Comfort care
Assessment / Plan
Assessment / Plan
84-year-old with advanced dementia brought in from SNF with fever and lethargy. Patient was recent admitted to [facility] after a fall was lethargic subsequently improved and was discharged to rehab. She developed lethargy again 2 days
prior to admission. Admitted to hospital for UTI/pneumonia. MRI of the brain with no acute changes. Patient improved was awake and interacting with normal bowel with hydration and antibiotics. Urine culture negative antibiotic switched to cover
pneumonia 3 days after improvement developed somnolence again workup showed right lower lobe pneumonia with concern of aspiration
pt's pupils equal and reactive
Awake , Does not interact.
ABd Soft NT
DHT in
Assessemnt
# TME/delirium
Possible advanced dementia
MRI negative for stroke
Bilateral pneumonia-likely aspiration pneumonia
Blood cultures and urine cultures negative
Was treated with antibiotics for pneumonia
COVID and influenza negative
TSH and cortisol within normal limits.Ammonia level normal
Psychiatry consulted-no changes in medicines
Neurology evaluated pt.- recommends palliative eval/hospice
EEG neg
Lumbar puncture held per neuro Discussion with the patient's , family does not want.
DHT feeding started 07/31/24 , taken off today as now family decided comfort care
# Cephalic vein thrombus right arm
# Anemia- negative FOBT.Transfused with 1 unit of blood 07/26/24.Completed 5 days of IV iron for NOREEN
# Hypokalemia
# Hypernatremia
# Hypophosphatemia
# Acute kidney injury
# Abnormal carotid on CT- ultrasound with more than 70% stenosis. OP Vascular eval discussed with son
# Nontraumatic rhabdomyolysis-Resolved
# Elevated AST and ALT-likely secondary to Rhabdo.
# Constipation-Resolved.
# Dysphagia
# Hypertension
# History of old stroke-left MCA
# Coronary artery disease
# Nonobstructive nephrolithiasis
# Advanced dementia-for 2 years .
# GERD-PPI
# Hypoalbuminemia
# DNR/DNI
Plan
Prognosis poor and patient's condition is terminal with advanced dementia and aspiration risks
Family was approached again regarding PEG tube as they decided they wanted a PEG tube for my discussion on Sunday.
stated that they had a family meeting in children and decided not to do a PEG tube.
They want hospice and requested that we keep the patient in the hospital as they cannot take him home in this condition not able to care for him.
They understand that he will pass
They are also agreeable to remove Dobbhoff tube and stop all the medicines unless it is needed for comfort.
Will place the patient on a diet since he is on comfort care-family is aware about aspiration
Will remove Dobbhoff tube
Comfort care orders placed and meds ordered.
Discussed with hospice today. If patient has symptoms to manage change to inpatient hospice
Discussed with twice today
Discussed with nursing
Discussed with infectious disease
Time spent over 50 minutes
Anticipated Discharge: > 48 hours
Subjective/Interval History
-
Date of Service: August 05, 2024
Objective Data
-
Labs:
Laboratory Results
08/05/24
06:57
Sodium 138
Potassium 4.6
Chloride 106
Carbon Dioxide 24
BUN 18
Creatinine 1.4 H
Glucose 160 H
Calcium 8.5
Vital Signs:
Vital Signs
Temp Pulse Resp BP Pulse Ox
98.8 F 60 20 93/63 98
08/05/24 07:54 08/05/24 07:54 08/05/24 07:54 08/05/24 07:54 08/05/24 07:54
I&O
08/04/24 08/05/24 08/06/24
06:59 06:59 06:59
Intake Total 940 / 940
Output Total 500 / 500 1150 / 1150
Balance 440 / 440 -1150 / -1150
--- NOTE | 2024-08-05 15:47 | PTCARENOTE ---
Pt transferred to hospice. NG tube removed from L nare and TF discontinued. Family at bedside. Hospice nurse informed this RN pt will be transferred to private room when available, admissions aware.
[2024-08-05 15:55] VITALS: BP 134/56
--- NOTE | 2024-08-05 17:09 | W.PN.UPDATE ---
Update Note
Progress Note Update
medical note for hospice. Will sign off call if any further assist from GI needed. Reviewed with Dr. Whatley.
[2024-08-05 17:18] VITALS: BP 149/62
[2024-08-05] MEDS: ROBINUL 0.2 MG IV ×2 (17:21→23:06)
[2024-08-05] MEDS: MORPHINE SULFATE 1 MG IV ×3 (17:23→22:14)
--- NOTE | 2024-08-05 17:47 | PTCARENOTE ---
Addendum entered by Heidi Pearce RN 08/05/24 17:48:
Family updated on comfort measures at bedside.
Original Note:
Patient transferred from 3W. Patient rhoncorus, contracted and grimacing. Robinul and morphine given per PRN order.
[2024-08-05 19:30] VITALS: BP 156/67
[2024-08-06] MEDS: MORPHINE SULFATE 1 MG IV ×3 (01:30→09:53)
[2024-08-06 07:35] VITALS: BP 144/74
--- NOTE | 2024-08-06 09:09 | PTOTSP ---
Reviewed chart and noted pt moved to private room on comfort measures for hospice care. PT will sign off.
[2024-08-06] MEDS: ROBINUL 0.2 MG IV (09:54)
--- NOTE | 2024-08-06 10:36 | CM ---
Reviewed the chart notes. CM continues to be available to patient/family.
Plan: Comfort Care
--- NOTE | 2024-08-06 13:04 | HOSPNOTE ---
Patient will be admitted inpatient hospice today. Admissions was called and hospice chart will be started. Family in agreement and consents were signed.
== END 2024-08-06 13:30 | disposition hospice, inpatient (51) | DRG 177 ==
LOC: 2 NORTH 23:41
PROVIDERS: Hospitalist; Internal Medicine; Radiology Vascular & Interventional Radiology; ADMITTING PHYSICIAN Internal Medicine; ATTENDING PHYSICIAN Internal Medicine; CONSULT PHYSICIAN Internal Medicine Gastroenterology; CONSULT PHYSICIAN Internal Medicine Infectious Disease; CONSULT PHYSICIAN Psychiatry & Neurology Neurology; EMERGENCY PHYSICIAN Student in an Organized Health Care Education/Training Program; FAMILY PHYSICIAN Internal Medicine; OTHER PHYSICIAN Internal Medicine Hematology & Oncology; OTHER PHYSICIAN Psychiatry & Neurology Psychiatry; REFERRING PHYSICIAN Internal Medicine
PROC: 30233N1 Transfusion of Nonautologous Red Blood Cells into Peripheral Vein, Percutaneous Approach (ICD-10-PCS; 2024-07-26)
DX: J69.0 Pneumonitis due to inhalation of food and vomit (principal); A41.9 Sepsis, unspecified organism; G92.8 Other toxic encephalopathy; N17.9 Acute kidney failure, unspecified; N39.0 Urinary tract infection, site not specified; E87.0 Hyperosmolality and hypernatremia; F03.918 Unspecified dementia, unspecified severity, with other behavioral disturbance; I82.621 Acute embolism and thrombosis of deep veins of right upper extremity; M62.82 Rhabdomyolysis; I25.10 Atherosclerotic heart disease of native coronary artery without angina pectoris; D50.9 Iron deficiency anemia, unspecified; E87.6 Hypokalemia; E83.39 Other disorders of phosphorus metabolism; R13.13 Dysphagia, pharyngeal phase; N18.31 Chronic kidney disease, stage 3a; I12.9 Hypertensive chronic kidney disease with stage 1 through stage 4 chronic kidney disease, or unspecified chronic kidney disease; K52.89 Other specified noninfective gastroenteritis and colitis; Z66 Do not resuscitate; Z86.73 Personal history of transient ischemic attack (TIA), and cerebral infarction without residual deficits
CPT/HCPCS: 70450; 70551; 71045; 71250; 72126; 72129; 74018; 74176; 80048; 80053; 80202; 81003; 81015; 82010; 82140; 82248; 82533; 82550; 82607; 82728; 82746; 82805; 82962; 83010; 83036; 83540; 83550; 83605; 83615; 83735; 83880; 84100; 84145; 84443; 85014; 85018; 85025; 85027; 85045; 85610; 86850; 86860; 86880; 86900; 86901; 86920; 86922; 87040; 87070; 87086; 87449; 87502; 87811; 87899; 92523; 92526; 92610; 93005; 93306; 93880; 93971; 95816; 96374; 97163; 97167; 97530; 97535; 99285; J2916; P9016; Q9967

== ENCOUNTER 2024-08-06 13:31 | Inpatient (IN) | payer OTHER, SELFPAY ==
--- NOTE | 2024-08-06 13:06 | HOSPNOTE ---
Patient will be admitted inpatient hospice for agitation, pain and shortness of breath. Family in agreement. Consents are signed and patient will be seen daily by hospice.
--- NOTE | 2024-08-06 13:45 | CM ---
Reviewed the chart notes. Patient transitioned to [facility] H[facility]. Prior resides with spouse in a two story home. Was at [facility] for short term rehab. CM continues to be available to patient/family.
Plan: [facility] H[facility].
--- NOTE | 2024-08-06 14:27 | ADM.HSP ---
Admission - Hospice
History of Present Illness
Patient is a 84 years old male with dementia protracted delirium and toxic metabolic encephalopathy, severe aspiration syndrome, acute kidney injury, prior left-sided MCA stroke, CAD been admitted to inpatient hospice.
Reason for Hospice Admission
Severe aspiration, delirium. Patient has been on comfort care requiring close monitoring and comprehensive symptomatic management.
Review of Systems
Unable to obtain full review of systems at this time due to: Unresponsive
History Source: Family and Nursing
All other systems: Not reviewed unless documented
Physical Exam
General: No Apparent Distress
Respiratory: Non Labored Respirations
Cardiology: Regular Rhythm
GI: Soft
Neuro: Other (Lethargic unresponsive to voice)
Assessment/Medication Plan
Generic Name Dose Route Start Last Admin
Trade Name Freq PRN Reason Stop Dose Admin
Acetaminophen 650 mg 08/06/24 13:15
Acetaminophen 650 Mg Rectal Suppository RECTAL 09/03/24 13:14
Q4HPRN PRN
mild pain, BURROWS, or temp >100.4F
Bisacodyl 10 mg 08/06/24 13:15
Bisacodyl 10 Mg Rectal Suppository RECTAL 09/03/24 13:14
DAILYPRN PRN
if no BM for 3 days
Glycopyrrolate 0.2 mg 08/06/24 13:15
Glycopyrrolate 0.2 Mg/Ml Vial IV 09/03/24 13:14
Q4HPRN PRN
excessive secretions
Hyoscyamine Sulfate 0.125 mg 08/06/24 13:15
Hyoscyamine Sulfate 0.125 Mg/Ml In Oral Syringe SL 09/03/24 13:14
Q4HPRN PRN
excessive secretions
Morphine Sulfate/Sodium Chloride 100 mg in 100 mls @ 0 mls/hr 08/06/24 13:15
Morphine IV
PER PROTOCOL JUAN
Protocol
Per Protocol
Lorazepam 2 mg 04/30/25 13:15
Lorazepam 2 Mg/Ml Vial IV 09/03/24 13:14
Q2HPRN PRN
anxiety
Protocol
Morphine Sulfate 2 mg 08/06/24 13:15
Morphine 2 Mg/Ml Syringe IV 08/20/24 13:14
Q1HPRN PRN
moderate-severe pain / dyspnea
Morphine Sulfate 0 mg 08/06/24 13:15
Morphine 2 Mg/Ml Syringe IV 08/20/24 13:14
[id number] PRN
moderate-severe pain / dyspnea
Protocol
Ondansetron HCl 4 mg 08/06/24 13:15
Ondansetron 4 Mg/2 Ml Vial IV 09/03/24 13:14
Q6HPRN PRN
nausea/vomiting
Pharmacy Profile Note 0 unit 08/06/24 14:[address] 1 Unit IV 09/03/24 13:59
DIRECTED JUAN
[2024-08-06 15:34] VITALS: BP 149/68
[2024-08-06] MEDS: MORPHINE SULFATE 2 MG IV (21:50)
[2024-08-06] MEDS: ROBINUL 0.2 MG IV (21:50)
[2024-08-06 23:26] VITALS: BP 148/60
[2024-08-07] MEDS: MORPHINE SULFATE 2 MG IV ×6 (03:17→23:58)
[2024-08-07] MEDS: NSS (PRESERVATIVE FREE) 1 ML IV (06:00)
[2024-08-07] MEDS: ATIVAN 2 MG IV (06:01)
[2024-08-07 07:35] VITALS: BP 133/56
[2024-08-07] MEDS: ROBINUL 0.2 MG IV (08:23)
[2024-08-07] MEDS: TYLENOL/FEVERALL 650 MG RECTAL (08:28)
--- NOTE | 2024-08-07 08:37 | HOSPNOTE ---
Tumbler Operator visited 84 year old patient to conduct Initial DRY HOUSE WORKER Assessment. Patient admitted onto Hospice Services and [facility] Level of Care with the Primary Diagnosis of Senile Degeneration of the Brain. Nurse reported patient comfortable,
unresponsive, and medications administered. DRY HOUSE WORKER knocked on the door and entered patient's room with a greeting. Patient unresponsive and appeared to be resting comfortably. DRY HOUSE WORKER called out patient's name and his foot moved, no other response. Patient
showed no signs of pain and/or distressed. No family was present during this visit. DRY HOUSE WORKER contacted patient's spouse Keerthi to introduce herself and provide supportive services. Spouse reported she is fine and she has the supports of her children.
Spouse reported she and patient have been for 30 years. Patient has 3 sons, 1 daughter, 5 grandchildren and another grandchild arriving soon. 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 Spouse reported
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 Spouse reported people loved patient and he was well known almost famous. Spouse reported patient loved antique items excluding cars.
Patient is Bahai and has no buddhist affiliation. Patient wishes are to be buried in [facility] in [facility]. Family is utilizing [facility] in [place] for arrangements. Bereavement Risk is low as spouse
reported family is coping appropriately. Emotional Support Provided.
Patient meets [facility] criteria for SN assessments, management of pain, and anxiety that could not be managed at home and/or in an Outpatient setting. Discharge planning continues.
DRY HOUSE WORKER will conduct visits once a week while on [facility] Level of Care to provide supportive services and to monitor for additional services.
--- NOTE | 2024-08-07 10:42 | CM ---
Reviewed the chart notes. CM continues to be available to patient/family.
Plan: GIP Hospice.
--- NOTE | 2024-08-07 11:22 | HOSPNOTE ---
Patient is lethargic, family at bedside emotional support provided. Patient still continues with increased anxiety at times and will be medicated appropriately. Explained to family patient is unable to take any fluids due to the lethargy. Patient is
inpatient appropriate for anxiety and pain. Patient will be seen daily.
--- NOTE | 2024-08-07 14:33 | W.PN.HOSP.TC ---
Today's Communication/Plan
-
Continue hospice care
Assessment / Plan
Assessment / Plan
Continue hospice care
Anticipated Discharge: 24 - 48 hours
Subjective/Interval History
-
Date of Service: August 07, 2024
Objective Data
-
Vital Signs:
Vital Signs
Temp Pulse Resp BP Pulse Ox
100.3 F 69 14 133/56 94
08/07/24 07:35 08/07/24 07:35 08/07/24 07:35 08/07/24 07:35 08/07/24 11:31
I&O
08/06/24 08/07/24 08/08/24
06:59 06:59 06:59
Intake Total 0 / 0
Output Total 1175 / 1175
Balance -1175 / -1175
Physical Exam
-
Musculoskeletal: No Clubbing, No Cyanosis, Edema, Right Lower Extrem (on foot) and Edema, Left Lower Extrem
Neuro: Tremors (LLE) and Other (lethargic, spasticity on b/l UE)
[2024-08-07 19:58] VITALS: BP 159/61
[2024-08-08] MEDS: ATIVAN 2 MG IV (00:59)
[2024-08-08] MEDS: NSS (PRESERVATIVE FREE) 1 ML IV (01:00)
[2024-08-08] MEDS: ROBINUL 0.2 MG IV (01:48)
[2024-08-08] MEDS: MORPHINE SULFATE 2 MG IV ×2 (01:48→05:11)
[2024-08-08] MEDS: TYLENOL/FEVERALL 650 MG RECTAL (05:19)
[2024-08-08 07:42] VITALS: BP 128/60
--- NOTE | 2024-08-08 09:04 | CM ---
Reviewed the chart notes. CM continues to be available to patient/family.
Plan: GIP Hospice.
--- NOTE | 2024-08-08 12:17 | HOSPNOTE ---
Patient remains GIP appropriate level of care for symptom management for pain, anxiety. Received Morphine x 6 on 08/07/24 and Morphine x 2 so far today, Rubinol given x2, Ativan x 2 and tylenol x 1 in last 24 hours also. Patient requires IV
medications to manage symptoms.
Family visiting spouse Keerthi, son and granddaughter present. Reviewed symptoms at the end of life and possible treatment. Reviewed spiritual aspects of dying. Family supportive and appears to be coping well.
--- NOTE | 2024-08-08 13:17 | W.PN.HOSP.TC ---
Today's Communication/Plan
-
Continue hospice care.
Family reassured at the bedside
Assessment / Plan
Assessment / Plan
Continue hospice care
Anticipated Discharge: 24 - 48 hours
Subjective/Interval History
-
Date of Service: August 08, 2024
Objective Data
-
Vital Signs:
Vital Signs
Temp Pulse Resp BP Pulse Ox
99.5 F 74 16 128/60 96
08/08/24 07:42 08/08/24 07:42 08/08/24 07:42 08/08/24 07:42 08/08/24 07:42
I&O
08/07/24 08/08/24 08/09/24
06:59 06:59 06:59
Intake Total 0 / 0
Output Total 1175 / 1175 300 / 300
Balance -1175 / -1175 -300 / -300
Physical Exam
-
General: Well Developed and No Apparent Distress
HEENT: Normocephalic, Atraumatic and Moist Mucous Membranes
Respiratory: Clear to Auscultation
Cardiac: Regular Rhythm and S1/S2; Negative Murmur, Rub or Gallop
GI: Soft, Nontender, Nondistended and Normal Bowel Sounds; Negative Organomegaly
Rectal: Deferred by Provider
Musculoskeletal: No Clubbing, No Cyanosis and No Edema
Skin: Negative Rash
Neuro: Nonfocal/Grossly Intact
[2024-08-08 20:00] VITALS: BP 133/85
[2024-08-08 20:03] VITALS: BP 133/85
[2024-08-09] MEDS: ROBINUL 0.2 MG IV ×2 (04:14→08:14)
[2024-08-09] MEDS: MORPHINE SULFATE 2 MG IV ×2 (04:15→08:14)
[2024-08-09] MEDS: FLUSH (NSS) 3 FLUSH IV (04:16)
[2024-08-09 07:45] VITALS: BP 156/89
[2024-08-09] MEDS: TYLENOL/FEVERALL 650 MG RECTAL ×2 (08:13→19:57)
--- NOTE | 2024-08-09 09:30 | HOSPNOTE ---
Patient remains GIP appropriate level of care for the management of pain, anxiety. Patient has received Morphine x 4, Ativan x 1 Robinul x 2 and Tylenol x1 in last 24 hours. Patient is febrile, has terminal secretions, shallow respirations that are
irregular at times. No family present at time of hospice nurse visit, conferred with facility nurse Linda.
--- NOTE | 2024-08-09 11:15 | W.PN.HOSP.TC ---
Today's Communication/Plan
-
Continue hospital care
Assessment / Plan
Assessment / Plan
Continue hospice care
Anticipated Discharge: 24 - 48 hours
Subjective/Interval History
-
Date of Service: August 09, 2024
Sleeping comfortably
Objective Data
-
Vital Signs:
Vital Signs
Temp Pulse Resp BP Pulse Ox
100.6 F H 89 18 156/89 91
08/09/24 07:45 08/09/24 07:45 08/09/24 07:45 08/09/24 07:45 08/08/24 20:03
I&O
08/08/24 08/09/24 08/10/24
06:59 06:59 06:59
Output Total 300 / 300
Balance -300 / -300
Review of Systems
-
Unable to obtain full review of systems at this time due to: Acuity
Physical Exam
-
General: Comfortable
--- NOTE | 2024-08-09 12:31 | CHAP ---
Itz was resting comfortably, nonverbal, occasionally opening his eyes. Son, Keo, was present. Keo shared background about his father, who has Jainism vince. Spouse, Keerthi, arrived during the visit; the family welcomed Old Testament
readings and prayer. Emotional and spiritual support provided, along with a prayer blanket. Explosive Man will continue support through weekly visits, remaining available as needed.
--- NOTE | 2024-08-09 14:19 | PTCARENOTE ---
pt with 1006. temp this AM. pt turned by this RN and pct, hygiene provided and rectal tylenol given. temp recheck of 98.7
[2024-08-09 20:23] VITALS: BP 163/73
[2024-08-10 07:40] VITALS: BP 165/98
[2024-08-10] MEDS: ATIVAN 2 MG IV (08:28)
[2024-08-10] MEDS: ROBINUL 0.2 MG IV (08:28)
[2024-08-10] MEDS: NSS (PRESERVATIVE FREE) 1 ML IV (08:28)
[2024-08-10] MEDS: MORPHINE SULFATE 2 MG IV ×2 (08:29→21:30)
--- NOTE | 2024-08-10 09:05 | HOSPNOTE ---
Patient remains GIP appropriate level of care for symptom management of pain and anxiety. Patient has received Morphine IV x 4 for pain, Ativan IV x 1 for anxiety, Robinul IV x 1 for secretions and Tylenol supp x 2 for fevers in last 24 hours.
Patient is not eating or drinking and minimally responsive to tactile stimuli. Patient is oliguric,and respirations are shallow and irregular. Continue to follow daily for GIP level appropriateness.
[2024-08-10 19:36] VITALS: BP 134/78
[2024-08-11] MEDS: ATIVAN 2 MG IV (01:53)
[2024-08-11] MEDS: NSS (PRESERVATIVE FREE) 1 ML IV (01:53)
[2024-08-11] MEDS: MORPHINE SULFATE 2 MG IV ×4 (01:54→21:03)
[2024-08-11 07:42] VITALS: BP 128/69
--- NOTE | 2024-08-11 09:25 | CM ---
Reviewed the chart notes. CM continues to be available to patient/family.
Plan: GIP Hospice.
--- NOTE | 2024-08-11 11:46 | HOSPNOTE ---
Patient is unresponsive appears comfortable. Patient continues to be inpatient hospice and will be seen daily. Please continue to medicate prior to any care or repositioning. Emotional support provided to family.
--- NOTE | 2024-08-11 17:05 | W.PN.HOSP.TC ---
Today's Communication/Plan
-
Continue hospice care
Assessment / Plan
Assessment / Plan
Continue hospice care
Anticipated Discharge: 24 - 48 hours
Subjective/Interval History
-
Date of Service: August 11, 2024
Objective Data
-
Vital Signs:
Vital Signs
Temp Pulse Resp BP Pulse Ox
99.3 F 76 17 128/69 98
08/11/24 07:42 08/11/24 07:42 08/11/24 07:42 08/11/24 07:42 08/11/24 09:00
I&O
08/10/24 08/11/24 08/12/24
06:59 06:59 06:59
Intake Total 0 / 0 0 / 0
Balance 0 / 0 0 / 0
[2024-08-11 23:01] VITALS: BP 168/71
[2024-08-12] MEDS: MORPHINE SULFATE 2 MG IV ×3 (02:25→06:02)
[2024-08-12] MEDS: NSS (PRESERVATIVE FREE) 1 ML IV (06:01)
[2024-08-12] MEDS: ATIVAN 2 MG IV (06:01)
[2024-08-12 07:56] VITALS: BP 134/65
--- NOTE | 2024-08-12 10:03 | CM ---
Reviewed the chart notes. Patient remains GIP hospice appropriate at this time.
--- NOTE | 2024-08-12 13:04 | HOSPNOTE ---
Patient appears to be comfortable and encouraged to keep medicating prior to any turning or repositioning. Family at bedside and emotional support given to family. Patient continues to be inpatient appropriate for IV medication for agitation and
pain. Patient will be seen daily by hospice nurse. Patient is unresponsive.
--- NOTE | 2024-08-12 16:03 | W.PN.HOSP.TC ---
Today's Communication/Plan
-
Continue hospice care
Assessment / Plan
Assessment / Plan
Continue hospice care
Anticipated Discharge: 24 - 48 hours
Subjective/Interval History
-
Date of Service: August 12, 2024
Objective Data
-
Vital Signs:
Vital Signs
Temp Pulse Resp BP Pulse Ox
99.1 F 79 14 134/65 95
08/12/24 07:56 08/12/24 07:56 08/12/24 07:56 08/12/24 07:56 08/12/24 07:56
I&O
08/11/24 08/12/24 08/13/24
06:59 06:59 06:59
Intake Total 0 / 0
Balance 0 / 0
Physical Exam
-
General: Comfortable
[2024-08-12 19:26] VITALS: BP 130/81
[2024-08-12] MEDS: TYLENOL/FEVERALL 650 MG RECTAL (19:36)
[2024-08-13 07:39] VITALS: BP 121/77
--- NOTE | 2024-08-13 08:34 | CM ---
Reviewed the chart notes. Patient remains on GIP hospice.
[2024-08-13] MEDS: MORPHINE SULFATE 2 MG IV ×2 (11:51→14:59)
--- NOTE | 2024-08-13 13:28 | HOSPNOTE ---
Family present while in the room for my assessment. The patient did have a period of increased respirations and I asked the nurse to medicate with IV morphine. Encouraged to medicate prior to any care or repositioning. Patient is unresponsive and
continues to be inpatient appropriate for agitation, pain and anxiety. Patient will be seen daily by hospice nurse.
--- NOTE | 2024-08-13 15:09 | W.PN.HOSP.TC ---
Today's Communication/Plan
-
Noted to be diaphoretic and tachypneic with respiratory pauses.
Will transition to morphine drip
Assessment / Plan
Assessment / Plan
Continue hospice care
Anticipated Discharge: 24 - 48 hours
Subjective/Interval History
-
Date of Service: August 13, 2024
Objective Data
-
Vital Signs:
Vital Signs
Temp Pulse Resp BP Pulse Ox
99.3 F 87 16 121/77 94
08/13/24 07:39 08/13/24 07:39 08/13/24 07:39 08/13/24 07:39 08/13/24 07:39
Physical Exam
-
General: Comfortable
[2024-08-13] MEDS: MORPHINE 100 IV (15:13)
--- NOTE | 2024-08-13 15:29 | PTCARENOTE ---
Morphine gtt started at 1520 on step 2 of protocol.
[2024-08-13 19:40] VITALS: BP 101/54
[2024-08-14 07:45] VITALS: BP 118/76
--- NOTE | 2024-08-14 09:18 | CM ---
Reviewed the chart notes. Morphine gtt started yesterday. CM continues to be available to patient/family.
Plan: GIP hospice continues.
--- NOTE | 2024-08-14 13:43 | HOSPNOTE ---
Patient is unresponsive actively dying and having periods of apnea. Family is at bedside emotional support provided. Patient was started on a morphine drip last evening and is at 2mg. Patient continues to be inpatient appropriate for titration of
morphine and ativan for agitation that could not be managed outside of the hospital. Patient will be seen daily by hospice nurse.
--- NOTE | 2024-08-14 15:11 | W.PN.HOSP.TC ---
Today's Communication/Plan
-
Continue morphine drip. Titrate to comfort.
Assessment / Plan
Assessment / Plan
Continue hospice care
Anticipated Discharge: 24 - 48 hours
Subjective/Interval History
-
Date of Service: August 14, 2024
Objective Data
-
Vital Signs:
Vital Signs
Temp Pulse Resp BP Pulse Ox
100.3 F 88 10 118/76 88
08/14/24 07:45 08/14/24 07:45 08/14/24 07:45 08/14/24 07:45 08/14/24 07:45
I&O
08/13/24 08/14/24 08/15/24
06:59 06:59 06:59
Intake Total / 6
Balance / 6
Physical Exam
-
General: Comfortable
--- NOTE | 2024-08-14 15:11 | HOSPNOTE ---
Fitness Technician visited patient for weekly visit and to provide supportive services. Nurse reported medication administered and patient is comfortable, no concerns. ASSOCIATE AGENT INSURANCE SALES greeted patient's spouse and son while entering the room. ASSOCIATE AGENT INSURANCE SALES reminded
spouse of their conversation last week. Spouse smiled and stated I remember you now. ASSOCIATE AGENT INSURANCE SALES greeted patient, no response. Patient appeared to be resting comfortably, no signs of pain and/or distress observed. Patient's son reported patient seems more
peaceful than he was yesterday, he was sweating and breathing hard. Spouse reported this has been the most comfortably patient has been in months. Spouse and son reported they are coping appropriately. Spouse reported family and loved ones visited
patient to say their goodbye and patient is still fighting. ASSOCIATE AGENT INSURANCE SALES gently touched patient's shoulder and whispered in his ear that his family is at his bedside and they loved him and want him to rest. Family reported patient has been receiving
excellent care and they have been taken care of too. Family reported they don't have any concerns or need anything at this time. Family declined Bereavement Services at this time. Prayer and Emotional Support Provided.
Patient continues to meet GIP criteria for SN assessments, titration of Morphine and Ativan for agitation that could not be managed at home and/or in an Outpatient setting.
ASSOCIATE AGENT INSURANCE SALES will conduct visits once a week while on GIP LOC to provide supportive services and to monitor for additional services.
[2024-08-14 19:53] VITALS: BP 100/30
[2024-08-15 07:29] VITALS: BP 71/38
[2024-08-15] MEDS: MORPHINE 100 IV (08:00)
--- NOTE | 2024-08-15 09:05 | CM ---
Reviewed the chart notes. CM continues to be available to patient/family.
GIP Hospice continues.
--- NOTE | 2024-08-15 10:48 | HOSPNOTE ---
Patient is actively dying. No family present at the time of my visit. Patient was started on a morphine drip. Patient will be seen daily by hospice. Patient continues to be inpatient hospice.
--- NOTE | 2024-08-15 13:48 | W.PN.DEATH ---
Pronouncement of
-
Called to see patient to pronounce.
No spontaneous heart tones or respirations noted.
Patient not responsive to verbal stimuli.
Patient is pronounced .
Time of : 13:06
Date of : 08/15/24
Cause of : Aspiration syndrome, advanced dementia.
Family Notified: Yes
== END 2024-08-15 15:19 | disposition expired | DRG 951 ==
LOC: 2 NORTH 13:31
PROVIDERS: ADMITTING PHYSICIAN Internal Medicine
DX: Z51.5 Encounter for palliative care (principal); G92.8 Other toxic encephalopathy; F03.92 Unspecified dementia, unspecified severity, with psychotic disturbance; F05 Delirium due to known physiological condition; N17.9 Acute kidney failure, unspecified; I25.10 Atherosclerotic heart disease of native coronary artery without angina pectoris; Z86.73 Personal history of transient ischemic attack (TIA), and cerebral infarction without residual deficits